=== PATIENT | female | born 1955 | race Hispanic/Latino ===

== ENCOUNTER 2018-05-22 22:32 | Inpatient (IN) | payer MEDICARE, OTHER ==
--- NOTE | 2018-05-22 23:19 | ED PDOC ---
Arrival/HPI - General Chief Complaint: Altered Mental Status Time Seen by Provider: 05/22/18 22:35 Historian: Patient - History of Present Illness Narrative History of Present Illness (Text): 05/22/18 23:16 A 63 year old female, with no significant past medical history, presents to the emergency department brought in by EMS with Altered Mental Status. Patient was a poor historian and was alert & oriented x2. Patient reports having pain in her left toe for the past two days but denies any pain right now and denies any fever, chills, chest pain, shortness of breath, nausea, vomiting, diarrhea, urinary symptoms, back pain, neck pain, headache, dizziness, or any other complaints. PMD: Dr. Bwoen Time/Duration: Prior to Arrival Symptom Course: Unchanged Activities at Onset: Light Context: Home Past Medical History - Provider Review Nursing Documentation Reviewed: Yes - Endocrine/Metabolic Hx Diabetes Mellitus Type 1: Yes - Psychiatric Hx Depression: No Hx Emotional Abuse: No Hx Physical Abuse: No Hx Substance Use: No - Surgical History Other/Comment: neck surgery - Anesthesia Hx Anesthesia: Yes Hx Anesthesia Reactions: No Hx Malignant Hyperthermia: No - Suicidal Assessment Feels Threatened In Home Enviroment: No Family/Social History - Physician Review Nursing Documentation Reviewed: Yes Family/Social History: Unknown Family HX Smoking Status: Never Smoked Hx Alcohol Use: No Hx Substance Use: No Allergies/Home Meds Allergies/Adverse Reactions: Allergies No Known Allergies Allergy (Verified 05/22/18 22:41) Home Medications: Home Meds Medication Instructions Recorded Confirmed ALPRAZolam [Xanax] 1 mg PO BID 05/23/18 05/23/18 GlipiZIDE [Glucotrol] 5 mg PO BID 05/23/18 05/23/18 Lisinopril 05/23/18 Morphine [MS Contin] 60 mg PO QID 05/23/18 05/23/18 Oxycodone HCl [Roxicodone] 30 mg PO QID 05/23/18 05/23/18 Sitagliptin Phos/Metformin HCl 100 mg PO DAILY 05/23/18 05/23/18 [Janumet Xr 100-1,000 mg Tablet] Review of Systems - Physician Review All systems were reviewed & negative as marked: Yes - Review of Systems Constitutional: Normal. absent: Fevers, Night Sweats Eyes: Normal Respiratory: Normal. absent: SOB Cardiovascular: Normal. absent: Chest Pain Gastrointestinal: absent: Diarrhea, Nausea, Vomiting Genitourinary Female: absent: Urine Output Changes Musculoskeletal: absent: Back Pain, Neck Pain Skin: Other (ganggrene on left big toe ). absent: Normal Neurological: absent: Headache, Dizziness Physical Exam Vital Signs Reviewed: Yes Vital Signs Temp Pulse Resp BP Pulse Ox 05/23/18 02:15 105 H 16 133/69 96 05/23/18 01:52 105 H 16 133/69 96 05/22/18 22:58 98 F 113 H 16 137/68 88 L Temperature: Afebrile Blood Pressure: Normal Pulse: Tachycardic Respiratory Rate: Normal Appearance: Positive for: Well-Appearing, Non-Toxic, Comfortable Pain Distress: None Mental Status: No: Alert and Oriented X 3 (Alert and oriented x2) - Systems Exam Head: Present: Atraumatic, Normocephalic Pupils: Present: PERRL Extroacular Muscles: Present: EOMI Conjunctiva: Present: Normal Mouth: Present: Moist Mucous Membranes Neck: Present: Normal Range of Motion Respiratory/Chest: Present: Clear to Auscultation, Good Air Exchange. No: Respiratory Distress, Accessory Muscle Use Cardiovascular: Present: Regular Rate and Rhythm, Normal S1, S2. No: Murmurs Abdomen: No: Tenderness, Distention, Peritoneal Signs Back: Present: Normal Inspection Upper Extremity: Present: Normal Inspection. No: Cyanosis, Edema Lower Extremity: Present: Other (left toe bullae). No: Normal Inspection, Edema Neurological: Present: GCS=15, CN II-XII Intact, Speech Normal Skin: Present: Warm, Dry, Normal Color. No: Rashes Psychiatric: Present: Alert, Normal Insight, Normal Concentration. No: Oriented x 3 (Oriented x2) Medical Decision Making ED Course and Treatment: 05/22/18 23:20 Impression: 63 year old female presenting to the Emergency department brought in by EMS with AMS. r/o tox vs infectious vs metaoblic Plan: -- Head CT w/o contrast -- EKG -- Labs -- Chest X-ray -- Left foot X-Ray -- UA -- Reassess and disposition Prior Visits: Notes and results from previous visits were reviewed. Patient was last seen in the emergency department on Progress Notes: 05/23/18 00:12 Chest XRay reviewed, shows no acute findings. Reviewed by me. Left Foot XRay reviewed, shows no acute findings. Reviewed by me. 05/23/18 00:[address] w/o contrast FINDINGS: Brain: There are areas of diminished density in the white matter bilaterally consistent with chronic small vessel ischemic changes. Goetz-white matter differentiation is intact and unremarkable. No mass lesion. No evidence of intracranial hemorrhage. Ventricles: Unremarkable. No ventriculomegaly. Bones/joints: Unremarkable. No acute fracture. Soft tissues: Unremarkable. Sinuses: Small amount of mucus seen in the dependent portion of the sphenoid sinus. Mastoid air cells: Unremarkable as visualized. No mastoid effusion. IMPRESSION: 1. Chronic ischemic changes bilaterally. 2. Small amount of mucus seen in the dependent portion of the sphenoid sinus. Acute sinusitis can have this imaging finding. Dictator and Authenticated by: Anup Newman MD 05/23/18 00:[address] Turpin who is aware and agrees with Emergency department management plan to admit patient for further observation. 05/23/18 02:02 EKG: Ordered, reviewed, and independently interpreted the EKG. Rate : 102 BPM Rhythm : Sinus Tachycardia Interpretation : No ST-segment elevations or depressions, no T-wave inversions, normal intervals. Comparison : No previous EKG for comparison. Interpreted by me. 05/23/18 19:46 pt reassesed. agrees to admission - Lab Interpretations Lab Results: 05/23/18 00:05 05/23/18 00:05 Lab Results 05/23/18 00:35: Urine Opiates Screen Positive H, Urine Methadone Screen Negative , Ur Barbiturates Screen Positive H, Ur Phencyclidine Scrn Negative, Ur Amphetamines Screen Negative, U Benzodiazepines Scrn Positive H, U Oth Cocaine Metabols Negative, U Cannabinoids Screen Negative 05/23/18 00:35: Urine Color Yellow, Urine Appearance Clear, Urine pH 7.5, Ur Specific [place] 1.020, Urine Protein 30 H, Urine Glucose (UA) Negative, Urine Ketones 40 H, Urine Blood Negative, Urine Nitrate Negative, Urine Bilirubin Negative, Urine Urobilinogen 1.0 H, Ur Leukocyte Esterase Negative, Urine RBC 0 - 2, Urine WBC 0 - 2, Ur Epithelial Cells 1 - 3, Urine Bacteria Few 05/23/18 00:05: pO2 200 H, VBG pH 7.24 L, VBG pCO2 55.0, VBG HCO3 23.6, VBG Total CO2 25.3, VBG O2 Sat (Calc) 99.5 H, VBG Base Excess -4.5 L, VBG Potassium > 20.0 H*, Sodium 132.0, Chloride 103.0, Glucose 176 H, Lactate 1.5, FiO2 21.0, Venous Blood Potassium > 20.0 H* 05/23/18 00:05: Alcohol, Quantitative < 10 05/23/18 00:05: Salicylates < 1 L, Acetaminophen < 10.0 L 05/23/18 00:05: Sodium 142, Chloride 104, Potassium 3.6, Carbon Dioxide 26, Anion Gap 17, BUN 15, Creatinine 1.0, Est GFR ( Amer) > 60, Est GFR (Non- Af Amer) 56, Random Glucose 166 H, Calcium 9.3, Magnesium 2.1, Total Bilirubin 0.5, AST 14, ALT 17, Alkaline Phosphatase 98, Lactate Dehydrogenase 398, Total Creatine Kinase 55, Troponin I < 0.01 D, Total Protein 7.7, Albumin 3.9, Globulin 3.8, Albumin/Globulin Ratio 1.0 L 05/23/18 00:05: PT 12.3, INR 1.08, APTT 42.3 H 05/23/18 00:05: WBC 16.5 H, RBC 3.83, Hgb 11.3 L, Hct 34.1 L, MCV 89.0, MCH 29.5 , MCHC 33.1, RDW 14.4, Plt Count 267, MPV 9.1, Gran % 87.7 H, Lymph % (Auto) 7.5 L, Andrew % (Auto) 4.7, Eos % (Auto) 0.0 L, Baso % (Auto) 0.1, Gran # 14.47 H , Lymph # (Auto) 1.2, Andrew # (Auto) 0.8 H, Eos # (Auto) 0.0, Baso # (Auto) 0.02 05/22/18 23:02: POC Glucose (mg/dL) 147 H - RAD Interpretation Radiology Orders: 05/22/18 23:16 CHEST PORTABLE [RAD] Stat 05/22/18 23:17 HEAD W/O CONTRAST [CT] Stat FOOT LEFT 3 VIEWS ROUTINE [RAD] Stat - Medication Orders Current Medication Orders: Alprazolam (Xanax) 0.5 mg PO BID PRN; Protocol PRN Reason: Anxiety Enoxaparin Sodium (Lovenox) 70 mg SC Q12H TOMMIE PRN Reason: Protocol Last Admin: 05/23/18 18:09 Dose: 70 mg Subcutaneous Administrations Document 05/23/18 18:09 CD (Rec: 05/23/18 18:09 CD [id number]) Injection Site MAR Injection Site Right Arm Charges for Administration # of Subcutaneous Administrations 1 Glipizide (Glucotrol) 5 mg PO 0700,1700 [facility] Last Admin: 05/23/18 17:27 Dose: Not Given Non-Admin Reason: Nausea Ceftriaxone Sodium (Rocephin 1 Gram Ivpb) 1 gm in 100 mls @ 100 mls/hr IVPB DAILY TOMMIE PRN Reason: Protocol Stop: 06/01/18 10:01 Last Admin: 05/23/18 10:12 Dose: 100 mls/hr eMAR Start Stop Document 05/23/18 10:12 CD (Rec: 05/23/18 10:12 CD [id number]) Intravenous Solution Start Date 05/23/18 Start Time 10:12 Vancomycin HCl (Vancomycin 1gm) 1 gm in 250 mls @ 167 mls/hr IVPB Q12 TOMMIE PRN Reason: Protocol Stop: 06/01/18 10:01 Last Admin: 05/23/18 09:11 Dose: 167 mls/hr eMAR Start Stop Document 05/23/18 09:11 CD (Rec: 05/23/18 09:11 CD [id number]) Intravenous Solution Start Date 05/23/18 Start Time 09:11 Acyclovir 500 mg/ Sodium (Chloride) 100 mls @ 100 mls/hr IV Q8 TOMMIE PRN Reason: Protocol Stop: 06/01/18 14:01 Last Admin: 05/23/18 15:38 Dose: 100 mls/hr eMAR Start Stop Document 05/23/18 15:38 CD (Rec: 05/23/18 15:38 CD [id number]) Intravenous Solution Start Date 05/23/18 Start Time 15:38 Insulin Human Regular (Humulin R Med) 0 units SC ACHS TOMMIE PRN Reason: Protocol Last Admin: 05/23/18 17:27 Dose: Not Given Non-Admin Reason: Blood Sugar Parameter Lisinopril (Zestril) 10 mg PO DAILY [facility] Last Admin: 05/23/18 10:12 Dose: 10 mg [facility] Pulse and Blood Pressure Document 05/23/18 10:12 CD (Rec: 05/23/18 10:12 CD [id number]) Pulse Pulse Rate (60-90) 70 Blood Pressure Blood Pressure (100/60-150/90) 176/87 Metformin HCl (Glucophage) 500 mg PO BID [facility] Last Admin: 05/23/18 18:09 Dose: Not Given Non-Admin Reason: Nausea Morphine Sulfate (Morphine Extended Release Tab) 30 mg PO Q12 [facility] Last Admin: 05/23/18 12:32 Dose: 30 mg [facility] Pain Assessment Document 05/23/18 12:32 CD (Rec: 05/23/18 12:32 CD [id number]) Pain Reassessment Is this a pain reassessment? No Presence of Pain Presence of Pain Yes Pain Scale Used Pain Scale Used Numeric Location Pain Location Body Site Neck Back Description Description Chronic Intensity of Pain at present 8 Re-Assess: [facility] Pain Assessment Document 05/23/18 13:32 CD (Rec: 05/23/18 14:02 CD [id number]) Pain Reassessment Is this a pain reassessment? Yes Sleep Is patient sleeping during reassessment? Yes Mupirocin (Bactroban Ointment) 0 gm TOP BID [facility] Last Admin: 05/23/18 18:08 Dose: 1 applic Ondansetron HCl (Zofran Inj) 4 mg IVP Q6H PRN PRN Reason: Nausea/Vomiting Last Admin: 05/23/18 18:08 Dose: 4 mg IVP Administration Document 05/23/18 18:08 CD (Rec: 05/23/18 18:08 CD [id number]) Charges for Administration # of IVP Administrations 1 Oxycodone HCl (Oxycodone Immediate Release Tab) 15 mg PO Q6H PRN PRN Reason: Pain, severe (8-10) Sitagliptin Phosphate (Januvia) 100 mg PO DAILY [facility] Last Admin: 05/23/18 11:12 Dose: Not Given Non-Admin Reason: Nausea Zolpidem Tartrate (Ambien) 5 mg PO HS PRN; Protocol PRN Reason: Insomnia Discontinued Medications Sodium Chloride (Sodium Chloride 0.9%) 500 mls @ 999 mls/hr IV .Q31M STA Stop: 05/23/18 00:32 Last Admin: 05/23/18 00:48 Dose: 999 mls/hr eMAR Start Stop Document 05/23/18 00:48 MS (Rec: 05/23/18 00:[address] [id number]) Intravenous Solution Start Date 05/23/18 Start Time 00:49 End Date 05/23/18 End time 01:19 Total Infusion Time 30 Vancomycin HCl (Vancomycin 1gm) 1 gm in 250 mls @ 167 mls/hr IVPB STAT STA PRN Reason: Protocol Stop: 05/23/18 01:58 Last Admin: 05/23/18 01:45 Dose: 167 mls/hr eMAR Start Stop Document 05/23/18 01:45 MS (Rec: 05/23/18 01:[address] [id number]) Intravenous Solution Start Date 05/23/18 Start Time 01:30 End Date 05/23/18 End time 03:00 Total Infusion Time 90 Piperacillin Sod/Tazobactam Sod (Zosyn 3.375 In Ns 100ml) 100 mls @ 200 mls/hr IVPB STAT STA PRN Reason: Protocol Stop: 05/23/18 00:58 Last Admin: 05/23/18 00:47 Dose: 200 mls/hr eMAR Start Stop Document 05/23/18 00:47 MS (Rec: 05/23/18 00:[address] [id number]) Intravenous Solution Start Date 05/23/18 Start Time 00:47 End Date 05/23/18 End time 01:17 Total Infusion Time 30 Lisinopril (Zestril) 10 mg PO STAT STA Stop: 05/23/18 05:58 Last Admin: 05/23/18 06:21 Dose: 10 mg MAR Pulse and Blood Pressure Document 05/23/18 06:21 MS (Rec: 05/23/18 06:22 MS [id number]) Pulse Pulse Rate (60-90) 91 Blood Pressure Blood Pressure (100/60-150/90) 176/87 Ondansetron HCl (Zofran Inj) 4 mg IVP ONCE ONE Stop: 05/23/18 05:24 Last Admin: 05/23/18 05:33 Dose: 4 mg IVP Administration Document 05/23/18 05:33 MS (Rec: 05/23/18 05:33 MS [id number]) Charges for Administration # of IVP Administrations 1 - Scribe Statement The provider has reviewed the documentation as recorded by the Gueroibmary Mercado All medical record entries made by the Gueroibmary were at my direction and personally dictated by me. I have reviewed the chart and agree that the record accurately reflects my personal performance of the history, physical exam, medical decision making, and the department course for this patient. I have also personally directed, reviewed, and agree with the discharge instructions and disposition. Disposition/Present on Arrival - Present on Arrival Any Indicators Present on Arrival: No History of DVT/PE: No History of Uncontrolled Diabetes: No Urinary Catheter: No History of Decub. Ulcer: No History Surgical Site Infection Following: None - Disposition Have Diagnosis and Disposition been Completed?: Yes Diagnosis: Altered mental status, Leukocytosis Disposition: HOSPITALIZED Disposition Time: 06:00 Condition: STABLE
[2018-05-23] MEDS ORDERED: Sodium Chloride 0.9% 500 ML IV STA (00:02)
[2018-05-23 00:26] LABS: BASO # 0.02 K/mm3 (0.0-2.0); BASO % 0.1 % (0.0-3.0); GRAN # 14.47 (1.4-6.5); GRAN % 87.7 % (50.0-68.0); HEMOGLOBIN 11.3 g/dL (12.0-16.0); LYMPH # 1.2 (1.2-3.4); LYMPH % 7.5 % (22.0-35.0); MEAN CORPUSCULAR HEMOGLOBIN 29.5 pg (25.0-35.0); MEAN CORPUSCULAR HGB CONC 33.1 g/dl (31.0-37.0); MEAN PLATELET VOLUME 9.1 fl (7.0-11.0); MONO # 0.8 (0.1-0.6); MONO % 4.7 % (1.0-6.0); RBC 3.83 10^6/uL (3.5-6.1); RED CELL DISTRIBUTION WIDTH 14.4 % (11.5-14.5); WHITE BLOOD COUNT 16.5 10^3/ul (4.5-11.0)
[2018-05-23 00:29] LABS: VENOUS BLOOD GAS BASE EXCESS -4.5 mmol/L (0.0-2.0); VENOUS BLOOD GAS PO2 200 mm/Hg (30-55); VENOUS BLOOD PH 7.24 (7.32-7.43)
[2018-05-23] MEDS ORDERED: Vancomycin 1gm in NS 250ml 1 GM/250 ML BAG IVPB STA (00:29)
[2018-05-23] MEDS ORDERED: Piperacillin/Tazobact 3.375 gm 100 ML IVPB STA (00:29)
[2018-05-23 00:32] LABS: INR 1.08; PROTHROMBIN TIME 12.3 SECONDS (9.4-12.5)
[2018-05-23 00:35] LABS: ACETAMINOPHEN < 10.0 ug/ml (10.0-20.0); PARTIAL THROMBOPLASTIN TIME 42.3 Seconds (25.1-36.5); SALICYLATE < 1 mg/dL (2.0-20.0)
[2018-05-23 00:37] LABS: ALBUMIN 3.9 g/dL (3.0-4.8); ALT/SGPT 17 U/L (7-56); AST/SGOT 14 U/L (14-36); BLOOD UREA NITROGEN 15 mg/dL (7-21); CALCIUM 9.3 mg/dL (8.4-10.5); GFR AFRICAN-AMERICAN > 60; GFR NON-AFRICAN AMERICAN 56
[2018-05-23 00:47] LABS: TROPONIN I < 0.01 ng/mL
[2018-05-23 01:03] LABS: PH,URINE 7.5 (4.7-8.0); URINE BILIRUBIN NEGATIVE (NEGATIVE); URINE BLOOD NEGATIVE (NEGATIVE); URINE GLUCOSE (UA) NEGATIVE (NEGATIVE); URINE LEUKOCYTE ESTERASE NEGATIVE Leu/uL (NEGATIVE); URINE PROTEIN 30 mg/dL (<30 mg/dL)
[2018-05-23 01:14] LABS: URINE APPEARANCE CLEAR (CLEAR); URINE COLOR YELLOW (YELLOW)
[2018-05-23 01:23] LABS: URINE BACTERIA FEW (NEG); URINE RBC 0 - 2 /hpf (0-2); URINE WBC 0 - 2 /hpf (0-6)
[2018-05-23 01:29] LABS: BARBITURATES, UR POSITIVE (NEGATIVE); BENZODIAZEPINES, UR POSITIVE (NEGATIVE); OPIATES, UR POSITIVE (NEGATIVE); PHENCYCLIDINE, UR NEGATIVE (NEGATIVE)
[2018-05-23 02:59] VITALS: BMI 28.1
[2018-05-23] MEDS: Insulin Reg-MEDIUM-Coverage SC SCH ×4 (08:01→22:45)
--- NOTE | 2018-05-23 08:06 | RAD ---
Date of service: 05/22/2018 HISTORY: ams COMPARISON: 11/01/2013 FINDINGS: LUNGS: No active pulmonary disease. PLEURA: No significant pleural effusion identified, no pneumothorax apparent. CARDIOVASCULAR: Normal. OSSEOUS STRUCTURES: No significant abnormalities. VISUALIZED UPPER ABDOMEN: Normal. OTHER FINDINGS: None. IMPRESSION: No active disease.
--- NOTE | 2018-05-23 08:24 | RAD ---
Date of service: 05/22/2018 PROCEDURE: Left Foot Radiographs. HISTORY: pain COMPARISON: None. FINDINGS: BONES: Normal. No fracture. JOINTS: Degenerative changes are seen in the midfoot with joint space narrowing. SOFT TISSUES: Normal. OTHER FINDINGS: None. IMPRESSION: Degenerative changes in the midfoot. No evidence of fracture
--- NOTE | 2018-05-23 08:46 | CT ---
Date of service: 05/22/2018 PROCEDURE: CT HEAD WITHOUT CONTRAST. HISTORY: ams COMPARISON: None available. TECHNIQUE: Axial computed tomography images were obtained through the head/brain without intravenous contrast. Radiation dose: Total exam DLP = 946 mGy-cm. This CT exam was performed using one or more of the following dose reduction techniques: Automated exposure control, adjustment of the mA and/or kV according to patient size, and/or use of iterative reconstruction technique. FINDINGS: HEMORRHAGE: No intracranial hemorrhage. BRAIN: No mass effect or edema. No atrophy or chronic microvascular ischemic changes. VENTRICLES: Unremarkable. No hydrocephalus. CALVARIUM: Unremarkable. PARANASAL SINUSES: Mucosal thickening in the posterior aspect of the sphenoid sinus MASTOID AIR CELLS: Unremarkable as visualized. No inflammatory changes. OTHER FINDINGS: The report concurs with the preliminary [facility] report IMPRESSION: No acute intracranial findings
--- NOTE | 2018-05-23 09:06 | CARD ---
APPROVED REPORT Date of service: 05/23/2018 EKG Measurement Heart [id number] <Conclusion> Sinus tachycardia Otherwise normal ECG
[2018-05-23 09:09] LABS: HEMOGLOBIN 10.6 g/dL (12.0-16.0); MEAN CELL VOLUME 88.4 fl (80.0-105.0); MEAN CORPUSCULAR HEMOGLOBIN 29.4 pg (25.0-35.0); MEAN CORPUSCULAR HGB CONC 33.2 g/dl (31.0-37.0); MEAN PLATELET VOLUME 8.8 fl (7.0-11.0); RBC 3.61 10^6/uL (3.5-6.1); RED CELL DISTRIBUTION WIDTH 14.3 % (11.5-14.5); WHITE BLOOD COUNT 14.7 10^3/ul (4.5-11.0)
[2018-05-23] MEDS: Vancomycin 1gm in NS 250ml 1 GM/250 ML BAG IVPB SCH ×2 (09:11→22:18)
[2018-05-23 09:20] LABS: ALBUMIN 3.7 g/dL (3.0-4.8); ALT/SGPT 11 U/L (7-56); AST/SGOT 17 U/L (14-36); BLOOD UREA NITROGEN 14 mg/dL (7-21); CALCIUM 9.3 mg/dL (8.4-10.5); GFR AFRICAN-AMERICAN > 60; GFR NON-AFRICAN AMERICAN 56; HDL CHOLESTEROL 27 mg/dL (29-60)
[2018-05-23 09:28] LABS: LDL CHOLESTEROL 69 mg/dL (0-129)
[2018-05-23 09:29] LABS: TROPONIN I < 0.01 ng/mL
[2018-05-23 09:34] LABS: FREE T4 0.96 ng/dL (0.78-2.19)
[2018-05-23] MEDS: cefTRIAXone 1 gm 1 GM/100 ML BAG IVPB SCH (10:12)
[2018-05-23] MEDS: Mupirocin 2% Ointment 15 GM TUBE TOP SCH ×2 (10:26→18:08)
[2018-05-23] MEDS: Morphine 30 mg SR Tab PO SCH ×2 (12:32→22:16)
--- NOTE | 2018-05-23 13:06 | HP ---
Copied To: Teri Le MD Attending MD: Teri Le MD HISTORY OF PRESENT ILLNESS: The patient is a 63-year-old white female who was found to have altered mental status at home. The patient has no recall about it. She states I have no idea, my called ambulance and I was brought to emergency room according to ER documentation. She was acting confused and saying so, that is why ambulance was called and she was brought to ER. The patient is not a very good historian; however, she is awake and alert, offers no complaint. No history of nausea or vomiting. No diarrhea. No fever. No chills. No cough, congestion. No hemoptysis. No hematemesis. PAST MEDICAL HISTORY: Significant for, 1. Chronic back pain for that she is on heavy dose narcotics. 2. History of gastritis. 3. Bbi-szbldbk-uoztsfzhd diabetes. ALLERGIES: SHE IS NOT ALLERGIC TO ANY MEDICATION. MEDICATIONS AT HOME: She is on metformin 100/1000, oxycodone 30 mg four times a day, Ms Contin 60 mg four times a day, lisinopril, glipizide and Xanax. REVIEW OF SYSTEMS: Significant for right big toe blister and swelling and redness. SOCIAL HISTORY: She is . Lives with the , heavy smoker and uses prescription narcotics. PHYSICAL EXAMINATION: GENERAL: She seems to be awake and alert, answers appropriately. VITAL SIGNS: She is afebrile, pulse 91, respirations 19, blood pressure 176/87. LUNGS: Bilateral fair airflow. No rhonchi or crackle. HEART: S1 and S2 audible. ABDOMEN: Soft, obese, nontender. No rebound. No guarding. NEUROLOGICAL: She is awake, alert, oriented. Answers appropriately for now. EXTREMITIES: Bilateral leg, no edema. Right big toe ulcer is in the dressing done by healthcare customer service. LABORATORY EXAM: WBC on admission was 16.5, followup is 14.7; hemoglobin 10.6; hematocrit 31.9; platelet 264. Chemistry: Sodium 145, potassium 3.6, chloride 107, CO2 of 24, BUN 17, creatinine 1, blood sugar 159. LFTs are within normal limits. TSH is 0.12. CT scan of the head and brain is unremarkable. X-ray of right foot shows degenerative changes in the midfoot. No evidence of fracture. ASSESSMENT: 1. Altered mental status, probably secondary to heavy-dose narcotics. 2. Chronic back pain. 3. Igo-jsxqrjn-nopwuzkbq diabetes. 4. Hypertension. 5. Hyperlipidemia. PLAN: We will start the patient on metformin, monitor her blood sugar. Continue her on glipizide. Currently, she is on Rocephin. We will continue that. She is on vancomycin. She is on lisinopril. Has been started on acyclovir. MRI and echo have been ordered and ordered for carotid Doppler. I was notified this morning the patient had episode of bradycardia and become symptomatic and feel nauseous. So plan is we will continue on above-mentioned antibiotic, analgesic as needed. Right foot ulcer is being cared by Podiatry team. We will follow up the patient on . Teri Le MD
--- NOTE | 2018-05-23 15:00 | CON ---
Copied To: Tanner Nagy MD Attending MD: Tanner Nagy MD DATE: 05/23/2018 CARDIOLOGY CONSULT REASON FOR CONSULTATION: Slow atrial fibrillation in the rate of 40. HISTORY OF PRESENT ILLNESS: The patient is a 63-year-old female, who was admitted because of altered mental status. The patient herself does not recall anything except that the told her she has to go to the hospital. The patient denies any known prior cardiac history and does not recall having any coronary intervention in the past. At this time, the patient denies any chest pain or dizziness. Initially, the patient was in sinus rhythm and the EKG on admission revealed sinus tachycardia at a rate of 102; however, overnight monitor revealed runs of slow atrial fibrillation at a rate of 40. SOCIAL HISTORY: The patient is a smoker. She is a nondrinker. MEDICATIONS: Home medications are metformin, glipizide, Xanax and MS Contin. Current hospital medications are acyclovir 500 mg every 8 hours, Ambien 5 mg at bedtime, Glucophage 500 mg twice a day, glipizide 5 mg twice a day, Januvia 100 mg daily, morphine sulfate 3 mg p.o. every 12 hours, Rocephin 1 g intravenously daily, vancomycin 1 g intravenously every 12 hours, Zestril 10 mg once a day, Zofran 4 mg intravenously every 6 hours p.r.n. REVIEW OF SYSTEMS: The patient denies any recent fever and did not have any documented fever in the hospital. She denies retrosternal chest pain, dizziness or palpitation. I was informed by the nurse that the patient had incision and drainage for the left big toe, although there is no report on the [employer] database of that. PHYSICAL EXAMINATION: GENERAL: The patient is a middle-aged female, who does not appear to be in any acute distress. VITAL SIGNS: Blood pressure 159/87, heart rate 80, temperature 98.6. HEENT: Pale conjunctivae. CHEST: Clear. HEART: S1 and S2 regular. ABDOMEN: Soft. EXTREMITIES: 1+ left foot edema and dressings applied to the left foot and the left big toe. EKG reveals sinus tachycardia at a rate of 102. LABORATORY DATA: Hemoglobin and hematocrit 10.6 and 31.9, white count 14.7, platelet count 264,000. Admitting white count was 16.5. SMA-7: Sodium 145, potassium 3.6, chloride 107, CO2 of 24, glucose 159, BUN 14, creatinine 1. Two sets of troponins are negative. PTT 42.3, INR was 1.08. Drug screen is positive for opiates, barbiturates and benzodiazepines, which is likely to her home medications except for the barbiturates. Head CT scan without contrast: No acute intracranial finding. Left foot x-ray: Degenerative changes in the midfoot. No evidence of fracture. TSH 0.12, which is below normal. Free T4 is within normal limit. ASSESSMENT: 1. Paroxysmal atrial fibrillation with slow heart rate. 2. Altered mental status. 3. Consider left big toe infection, status post incision and drainage. Rule out underlying sepsis. 4. Hypertension and diabetes mellitus. RECOMMENDATIONS: Continue current morphine sulfate. Continue IV Rocephin and IV vancomycin. Continue Zestril 10 mg once a day. Start subcutaneous Lovenox therapy for paroxysmal atrial fibrillation. Repeat 12-lead EKG and I will review the echocardiography study performed today. Tanner Nagy MD
[2018-05-23] MEDS: Acyclovir 500 MG in Sodium Chloride 0.9% 100 ML IV SCH ×2 (15:38→22:16)
--- NOTE | 2018-05-23 17:53 | CON ---
Copied To: Kevin Cooper DPM Attending MD: Kevin Cooper DPM DATE: 05/23/2018 HISTORY OF PRESENT ILLNESS: A 63-year-old diabetic female, seen at bedside for consultation, evaluation and management of a recent blister formation on her left great toe. The patient does not know how long the blister has been there and does not know the etiology and does not know how it got there. She was brought into the emergency room yesterday as her noticed she was experiencing altered mental status. She is a long-term diabetic and her blood sugar was 176 mg/dL when she was brought in. PAST MEDICAL HISTORY: The patient's medical history is significant for type 1 diabetes with diabetic neuropathy, obesity, hypertension, dyslipidemia. SOCIAL HISTORY: The patient is . No history of tobacco usage. No alcohol use. No substance abuse. FAMILY HISTORY: Unremarkable. ALLERGIES: THE PATIENT HAS NO KNOWN DRUG ALLERGIES. HOME MEDICATIONS: Reviewed in the MAR. PHYSICAL EXAMINATION: VITAL SIGNS: Reveal temperature of 98.6, pulse rate of 91, blood pressure of 176/87, respiratory rate of 19. There is no microbiology report noted. X-rays taken of the left foot reveal degenerative changes in the midfoot, but there is no evidence of fracture, tumor or cortical destruction to suggest osteomyelitis. I examined the x-ray myself. It was noted to be no cortical erosion at the distal aspect of the left hallux underlying the blister formation. OBJECTIVE: Bounding palpable pedal pulses bilaterally. Absent pedal hair growth noted bilaterally. Temperature gradient is increased bilaterally. The patient is unable to detect 5.07 g monofilament wire testing bilaterally. Lower extremity skin presents thin, shining discolored. There is no edema bilaterally. There are no interdigital macerations noted bilaterally. Left great toe presents with a blister formation at the distal aspect of the digit. There is noted to be serosanguineous fluid within the blister. Once the blister was the deroofed, there was an underlying superficial wound that does not probe to tendon or bone. The base of the wound is primarily granular healthy tissue. There is no purulence. It does not probe to tendon or bone. The area is void of any erythema and edema to suggest localized cellulitis. ASSESSMENT: Insulin-dependent diabetic with peripheral neuropathy, presents with blister formation on the distal aspect of the left hallux with no acute bacterial infection noted. PLAN: The patient was examined. Labs were reviewed. Her white count is 16.5 yesterday, down to 14.7. However, the etiology of her white blood cell count is not emanating from her blister formation on the left great toe, which is void of any clinical signs of infection. The wound was cultured and the cultures were sent for sensitivities. The wound was cleansed with normal sterile saline. We will apply a small amount of Bactroban, Xeroform and a dry sterile dressing. We will order surgical shoes to prevent any friction. The patient was educated on the fact that I believe that her wound was caused by friction from shoe gear, which is the most probable cause of blister formation at the distal aspect of the great toe. The patient is neuropathic and does not realize when shoes are tight. The patient will be seen and followed daily. Recommend Infectious Disease consult to evaluate culture and sensitivity results. We will continue empirically with the vancomycin and ceftriaxone. The patient will be seen and followed daily. Kevin Cooper DPM
[2018-05-23] MEDS: Enoxaparin 80 mg Syringe SC SCH (18:09)
--- NOTE | 2018-05-23 19:46 | CON ---
Copied To: Doug Pollard MD Attending MD: Doug Pollard MD DATE: 05/23/2018 LOCATION: The patient is seen in room 267, bed 2. CHIEF COMPLAINT: Weakness times several days. 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 The patient was alert and oriented. She denies any headaches. No fevers. No nausea. No chest pain. No abdominal pain, diarrhea or constipation. No urinary symptoms. PAST MEDICAL HISTORY: Significant for diabetes mellitus. REVIEW OF SYSTEMS: Twelve-point review of systems is noted and reviewed. She denies any rash or joint pain. No headaches, blurred vision. No chest pain, shortness of breath or cough. No abdominal pain, diarrhea or constipation. No dysuria or frequency. No bright red blood per rectum. No melena. No hematuria. No cough. No hemoptysis. PAST MEDICAL HISTORY: Significant for diabetes mellitus, hypertension, cataract, anxiety, and chronic pain syndrome. PAST SURGICAL HISTORY: Significant for tonsillectomy, , back surgery, neck surgery, cataract surgery. ALLERGIES: THE PATIENT HAS NO KNOWN ALLERGIES. MEDICATIONS AT HOME: Include MS Contin, Xanax, metformin, oxycodone, Glucotrol, and lisinopril. PHYSICAL EXAMINATION: GENERAL: She is in bed, in no acute distress. She knows who she is. She recognizes me from previous years of working here. She knows her name. She knows where she is; however, she is unable to identify the year. VITAL SIGNS: On exam, temperature is 98; blood pressure is 159/87; respiratory rate of 18; heart rate of 82, it was up to 113. She is saturating at 97%, although it was down to 88% on admission. BMI is 28. HEENT: Examination of HEENT is unremarkable. NECK: Supple. LUNGS: Clear. HEART: Normal S1 and S2. ABDOMEN: Soft and nontender. EXTREMITIES: On her big toe, she has approximately a nickel-sized bullous lesion that appears to be filled with blood, which is on the left toe. No erythema. LABORATORY DATA: The patient's laboratory examination reveals a white count of 16,500, hemoglobin of 11, platelets of 267, 87% granulocytosis. Coagulation is noted. Blood gases are noted. Chemistries reveal a BUN of 15 and creatinine of 1. Troponin is less than 0.01. LDH is normal. Urinalysis is unremarkable. The chest x-ray report is not available. The EKG report is not available. CAT scan of the head is not available. It has been reported by the nurse that the chest x-ray is negative and the CAT scan of the head is negative as per the emergency room chart. Chronic ischemic changes bilaterally. Small amount of mucus in the position of sphenoid sinus, acute sinusitis. EKG is interpreted, no changes, non-ST elevation. Left foot x-ray is reported by the Emergency Room as negative. Chest x-ray is reported by the emergency room as negative. 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 Although she is alert and oriented x2, she is having periods of confusion and admitted with a change of mental status. She does have white count of 16,000 not enough of infection or evident to explain the white count of 16,000 and hypoxia. The #1 is systemic inflammatory response syndrome. Must rule out primary central nervous system event. I doubt herpes encephalitis. I doubt meningitis. We will start empirically on vancomycin, Rocephin, acyclovir. Pending blood cultures and urine cultures. We will order an MRI of the head. Awaiting for official readings of the imaging, panculture, procalcitonin and a repeat white count. We will follow closely with you. Must also rule out aspiration pneumonia. Doug Polalrd MD
[2018-05-24] MEDS: Enoxaparin 80 mg Syringe SC SCH ×2 (01:52→14:36)
--- NOTE | 2018-05-24 05:32 | CARD ---
APPROVED REPORT Date of service: 05/23/2018 EXAM: Two-dimensional and M-mode echocardiogram with Doppler and color Doppler. INDICATION 2D DIMENSIONS IVSd0.9 (0.7-1.1cm)LVDd5.0 (3.9-5.9cm) PWd0.9 (0.7-1.1cm)LVDs3.3 (2.5-4.0cm) FS (%) 34.3 %LVEF (%)63.2 (>50%) M-Mode DIMENSIONS Left Atrium (MM)3.60 (2.5-4.0cm)Aortic Root3.20 (2.2-3.7cm) Aortic Cusp Exc.1.70 (1.5-2.0cm) Aortic Valve AoV Peak Nieqbeyo198.0cm/Janet Peak GR.7mmHg Mitral Valve MV E Hsxjxkgo63.8cm/sMV A Uodaxtlr56.3cm/sE/A ratio1.0 TDI Lateral E' Peak V10.40cm/sMedial E' Peak V7.51cm/sE/Lateral E'8.7 E/Medial E'12.1 Tricuspid Valve TR Peak Jkdcaogb782zn/sRAP [id number] Peak Gr.26mmHg [id number] LEFT VENTRICLE The left ventricle is normal size. There is normal left ventricular wall thickness. The left ventricular function is normal. The left ventricular ejection fraction is within the normal range. RIGHT VENTRICLE The right ventricle is normal size. The right ventricular systolic function is normal. ATRIA The left atrium size is normal. The right atrium size is normal. AORTIC VALVE The aortic valve is not well visualized. There is no aortic valvular stenosis. MITRAL VALVE The mitral valve is not well visualized. There is no mitral valve regurgitation noted. TRICUSPID VALVE The tricuspid valve is normal in structure. There is no tricuspid valve regurgitation noted. GREAT VESSELS The aortic root is normal in size. The IVC is normal in size and collapses >50% with inspiration. PERICARDIAL EFFUSION There is no pleural effusion. There is no pericardial effusion. <Conclusion> Technically limited stiudy. Chamber sizes appear within normal limits. Normal LV systolic function. No gross valvular abnormalities noted.
[2018-05-24] MEDS: Acyclovir 500 MG in Sodium Chloride 0.9% 100 ML IV SCH ×3 (05:50→21:43)
[2018-05-24] MEDS: Insulin Reg-MEDIUM-Coverage SC SCH ×4 (07:47→22:36)
[2018-05-24] MEDS: Mupirocin 2% Ointment 15 GM TUBE TOP SCH ×2 (09:30→17:54)
[2018-05-24] MEDS: Morphine 30 mg SR Tab PO SCH ×2 (09:30→21:42)
[2018-05-24] MEDS: Vancomycin 1gm in NS 250ml 1 GM/250 ML BAG IVPB SCH ×2 (09:34→22:16)
[2018-05-24] MEDS: cefTRIAXone 1 gm 1 GM/100 ML BAG IVPB SCH (09:34)
[2018-05-24] MEDS: Metoprolol Succinate 25 mg XL Tab PO SCH ×2 (11:03→17:54)
--- NOTE | 2018-05-24 12:18 | PN ---
Copied To: Doug Pollard MD Attending MD: Doug Pollard MD DATE: 05/24/2018 SUBJECTIVE: The patient is seen earlier today in room 267, bed 2. She is awake and alert. She knows what year it is, she knows what day it is and she knows where she is, who she is although nurses state that she has periods where she is not appropriately responding. PHYSICAL EXAMINATION: VITAL SIGNS: Temperature is 97, blood pressure is 120/70, respiratory rate of 21, heart rate of 87. HEENT: Examination is unremarkable. NECK: Supple. LUNGS: Have decreased breath sounds. HEART: Normal S1, S2. ABDOMEN: Soft. DATA: Laboratory examination reveals a white count of 14,700, hemoglobin of 10, platelets of 264. Chemistries reveal a BUN of 14, creatinine of 1 and procalcitonin 0.34.. The urinalysis is noted and toxicology is reviewed. Microbiology reveals the blood cultures are negative and the throat culture is pending. Review of orders reveal the patient to be on ceftriaxone, vancomycin and acyclovir. ASSESSMENT AND PLAN: This is a 63-year-old female who is admitted with change of mental status, past medical history significant for diabetes mellitus and chronic pain syndrome, chronic back pain, history of hyperthyroidism, Graves' disease, hypertension, anxiety, cataract and diabetes mellitus. 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 SIRS, systemic inflammatory response syndrome with questionable change in mental status, acute mental status change, although at this time she appears to be back to baseline, I doubt herpes encephalitis. Awaiting for MRI of the head; on vancomycin, Rocephin and acyclovir and workup in progress. The patient did have leukocytosis, which is somewhat improved down to 14,000. We will check on today's white count. The patient also with a big toe bullous lesion, enough to explain the change in mental status and/or white count. We will follow with you. Doug Pollard MD
--- NOTE | 2018-05-24 12:56 | CP.PCM.PN ---
<Rodney Branch - Last Filed: 05/24/18 12:53> Subjective - Date & Time of Evaluation Date of Evaluation: 05/24/18 Time of Evaluation: 11:00 - Subjective Subjective: Podiatry Progress Note- Dr. Dang 63F seen and evaluated at bedside concerning left hallux superficial ulceration secondary to deroofed blister likely from pressure. Patient is seen resting comfortably in bed, in NAD. Patient reports she slept okay. Denies of acute overnight events. Denies nausea, fever, shortness of breath, chest pains or chills. Reports that she doesn't have pain to the left foot. No other pedal complaints at this time. Objective - Vital Signs/Intake and Output Vital Signs (last 24 hours): Temp Pulse Resp BP Pulse Ox 97.8 F 79 21 145/75 97 05/24/18 06:00 05/24/18 11:03 05/24/18 06:00 05/24/18 11:03 05/24/18 06:00 Intake and Output: 05/24/18 05/24/18 06:59 18:59 Intake Total 2009 Output Total 2 Balance 2007 - Medications Medications: Current Medications Alprazolam (Xanax) 0.5 mg PO BID PRN; Protocol PRN Reason: Anxiety Enoxaparin Sodium (Lovenox) 70 mg SC Q12H TOMMIE PRN Reason: Protocol Last Admin: 05/24/18 01:52 Dose: 70 mg Glipizide (Glucotrol) 5 mg PO 0700,1700 [facility] Last Admin: 05/24/18 07:45 Dose: Not Given Ceftriaxone Sodium (Rocephin 1 Gram Ivpb) 1 gm in 100 mls @ 100 mls/hr IVPB DAILY TOMMIE PRN Reason: Protocol Stop: 06/01/18 10:01 Last Admin: 05/24/18 09:34 Dose: 100 mls/hr Vancomycin HCl (Vancomycin 1gm) 1 gm in 250 mls @ 167 mls/hr IVPB Q12 TOMMIE PRN Reason: Protocol Stop: 06/01/18 10:01 Last Admin: 05/24/18 09:34 Dose: 167 mls/hr Acyclovir 500 mg/ Sodium (Chloride) 100 mls @ 100 mls/hr IV Q8 TOMMIE PRN Reason: Protocol Stop: 06/01/18 14:01 Last Admin: 05/24/18 05:50 Dose: 100 mls/hr Insulin Human Regular (Humulin R Med) 0 units SC ACHS [facility] PRN Reason: Protocol Last Admin: 05/24/18 07:47 Dose: Not Given Lisinopril (Zestril) 10 mg PO DAILY [facility] Last Admin: 05/24/18 09:31 Dose: 10 mg Metformin HCl (Glucophage) 500 mg PO BID [facility] Last Admin: 05/24/18 09:44 Dose: Not Given Metoprolol Succinate (Toprol Xl) 12.5 mg PO BID [facility] Last Admin: 05/24/18 11:03 Dose: 12.5 mg Morphine Sulfate (Morphine Extended Release Tab) 30 mg PO Q12 [facility] Last Admin: 05/24/18 09:30 Dose: 30 mg Mupirocin (Bactroban Ointment) 0 gm TOP BID [facility] Last Admin: 05/24/18 09:30 Dose: 1 applic Ondansetron HCl (Zofran Inj) 4 mg IVP Q6H PRN PRN Reason: Nausea/Vomiting Last Admin: 05/23/18 18:08 Dose: 4 mg Oxycodone HCl (Oxycodone Immediate Release Tab) 15 mg PO Q6H PRN PRN Reason: Pain, severe (8-10) Sitagliptin Phosphate (Januvia) 100 mg PO DAILY [facility] Last Admin: 05/24/18 09:34 Dose: 100 mg Zolpidem Tartrate (Ambien) 5 mg PO HS PRN; Protocol PRN Reason: Insomnia - Labs Labs: 05/23/18 08:50 05/23/18 08:50 PT 12.3 SECONDS (9.4-12.5) 05/23/18 00:05 INR 1.08 05/23/18 00:05 APTT 42.3 Seconds (25.1-36.5) H 05/23/18 00:05 - Constitutional Appears: Well, Non-toxic, No Acute Distress - Extremities Exam Extremities Exam: absent: Calf Tenderness Additional comments: Left lower extremity focused examination: VASC: DP and PT palpable, CFT < 3 seconds x10 digits, temperature from warm to cool from proximal to distal toes, mild edema noted to the left forefoot ORTHO: no pain with palpation to the hallux, MM is 4/5 in all four compartments dorsiflexion, plantarflexion, inversion and eversion NEURO: gross sensation intact, protective sensation diminished DERM: ulceration measuring approximately 1 cm x 1cm x .1 cm at the distal hallux with wound base 100% granular, minimal serous sangious drainage, no streaking, no erythema, no odor, no purulence, no abscess, no gangrenous changes noted, no probe to bone, no probe to tendon - Neurological Exam Neurological Exam: Alert, Awake - Psychiatric Exam Psychiatric exam: Normal Affect, Normal Mood Assessment and Plan - Assessment and Plan (Free Text) Assessment: 63F with left hallux superficial ulceration secondary to blister likely from pressure. Plan: Patient seen and examined Discussed plan with Dr. Dang Afebrile, WBC =14.7 05/23/18 Ulceration cleansed with saline, dressed with xeroform, dsd, kerlix, and tape X-ray (-) OM Wound culture left hallux- pending Continue abx per ID Dispense surgical shoe To be worn at all times while ambulating Will continue to follow while in house <Ashley Dang - Last Filed: 05/27/18 12:32> Objective - Vital Signs/Intake and Output Vital Signs (last 24 hours): Temp Pulse Resp BP Pulse Ox 98.2 F 72 20 169/94 H 95 05/25/18 12:00 05/25/18 14:00 05/25/18 12:00 05/25/18 12:00 05/25/18 06:00 - Labs Labs: 05/25/18 06:45 05/25/18 09:00 PT 12.3 SECONDS (9.4-12.5) 05/23/18 00:05 INR 1.08 05/23/18 00:05 APTT 42.3 Seconds (25.1-36.5) H 05/23/18 00:05 Attending/Attestation - Attestation I have personally seen and examined this patient.: Yes I have fully participated in the care of the patient.: Yes I have reviewed all pertinent clinical information, including history, physical exam and plan: Yes
[2018-05-24] MEDS: oxyCODONE 15 mg Immediate Release Tab PO PRN (17:57)
--- NOTE | 2018-05-24 18:59 | PN ---
Copied To: Tanner Nagy MD Attending MD: Tanner Nagy MD DATE: 05/24/2018 SUBJECTIVE: No reported significant bradycardia. The patient is oriented to place. She denies any chest pain or dizziness. PHYSICAL EXAMINATION VITAL SIGNS: Blood pressure 145/75, heart rate 79, temperature 97.8, and respirations 21. HEENT: Normocephalic. CHEST: Clear. HEART: S1 and S2, regular. EXTREMITIES: No edema. LABORATORY DATA: Echocardiographic study was significantly limited study. Chamber size within normal limit with normal left ventricular systolic function. TSH level is 0.12 which is below normal. ASSESSMENT: 1. Paroxysmal atrial fibrillation. 2. Altered mental status. 3. Hypertension, diabetes mellitus. 4. Rule out hyperthyroidism. RECOMMENDATIONS: Continue Januvia 100 mg once a day, Lovenox at 70 mg subcutaneously twice a day, IV Rocephin at 1 g daily, Toprol-XL 12.5 mg twice a day, vancomycin 1 g intravenously every 12 hours, Zestril 10 mg once a day. Obtain total T4 level. Tanner Nagy MD
[2018-05-25] MEDS: oxyCODONE 15 mg Immediate Release Tab PO PRN ×3 (00:34→12:14)
[2018-05-25] MEDS: Enoxaparin 80 mg Syringe SC SCH ×2 (03:00→13:00)
[2018-05-25] MEDS: Acyclovir 500 MG in Sodium Chloride 0.9% 100 ML IV SCH ×2 (05:51→14:00)
[2018-05-25 06:21] VITALS: RESP 20; O2SAT 95
[2018-05-25] MEDS: Insulin Reg-MEDIUM-Coverage SC SCH ×2 (07:30→12:14)
[2018-05-25 07:33] LABS: HEMOGLOBIN 10.1 g/dL (12.0-16.0); MEAN CELL VOLUME 87.5 fl (80.0-105.0); MEAN CORPUSCULAR HEMOGLOBIN 28.8 pg (25.0-35.0); MEAN CORPUSCULAR HGB CONC 32.9 g/dl (31.0-37.0); MEAN PLATELET VOLUME 8.9 fl (7.0-11.0); RBC 3.51 10^6/uL (3.5-6.1); RED CELL DISTRIBUTION WIDTH 14.4 % (11.5-14.5); WHITE BLOOD COUNT 10.5 10^3/ul (4.5-11.0)
[2018-05-25 07:59] LABS: ALBUMIN 3.3 g/dL (3.0-4.8); ALT/SGPT 24 U/L (7-56); AST/SGOT 16 U/L (14-36); BLOOD UREA NITROGEN 13 mg/dL (7-21); CALCIUM 8.7 mg/dL (8.4-10.5); GFR AFRICAN-AMERICAN > 60; GFR NON-AFRICAN AMERICAN 56
--- NOTE | 2018-05-25 09:09 | PN ---
Copied To: Jose Luis Underwood MD Attending MD: Jose Luis Underwood MD DATE: 05/24/2018 SUBJECTIVE: The patient has no complaints of any headaches or dizziness. She has no nausea. PHYSICAL EXAMINATION VITAL SIGNS: Temperature is 97.8, pulse of 77, blood pressure is 127/78, respirations 21, O2 saturation 97%. GENERAL: The patient is lying in bed, flat, comfortable. HEENT: No oral lesion. Anicteric sclerae. Moist mucosa. NECK: No JVD, adenopathy, or thyromegaly. CARDIOVASCULAR: S1 and S2, regular. No murmurs, rubs, or gallops. LUNGS: Clear to auscultation bilaterally. No wheeze, rales, or rhonchi. ABDOMEN: Bowel sounds are positive, soft, nontender and nondistended. EXTREMITIES: No cyanosis, clubbing or edema. LABORATORY DATA: White count of 14.7, hemoglobin 10.6. Toxicology shows opiates are positive, barbiturates are positive, benzodiazepines are positive. Urine shows blood is negative, nitrites are negative. Chemistry shows creatinine of 1. LDL is 69. ASSESSMENT: 1. Delirium, improved. 2. Chronic back pain. 3. Diabetes type 2. 4. Hypertension. 5. Dyslipidemia. PLAN: The patient is improving on her mental status. She is on metformin for diabetes. She is on Glucotrol for her diabetes as well as Januvia. She is on Lovenox for DVT prophylaxis. She is on morphine for her pain, it is extended release. She did not get extended release yesterday and she said that she has been having pain. The patient has blood cultures that have been negative. She is currently on Rocephin for antibiotics and being followed by Infectious Disease. The patient is also on acyclovir for possible herpes encephalitis. The patient is on Zofran as needed. She has a carotid artery ultrasound that has been done, the results are pending. We will repeat her blood work for tomorrow. Jose Luis Underwood MD
--- NOTE | 2018-05-25 10:07 | US ---
PROCEDURE: Bilateral carotid artery duplex ultrasound HISTORY: Carotid stenosis PHYSICIAN(S): Sergio Jacobo MD. TECHNIQUE: Duplex sonography and color-flow Doppler were used to evaluate the carotid bifurcations and limited segments of the vertebral arteries bilaterally. FINDINGS: There is mild smooth heterogeneous echogenic plaque noted at the carotid bifurcations bilaterally. The peak systolic velocity in the proximal right internal carotid artery is 63 cm/sec. This corresponds to a 20 to 39% proximal right ICA stenosis. Mildly elevated systolic velocities are noted in the proximal right external carotid artery. There is antegrade flow in the right vertebral artery. The peak systolic velocity in the proximal left internal carotid artery is 59 cm/sec. This corresponds to a 20 to 39% proximal left ICA stenosis. Normal systolic velocities are noted in the proximal left external carotid artery. There is antegrade flow in the left vertebral artery. IMPRESSION: 1. Bilateral 20-39% proximal ICA stenoses. 2. Antegrade flow in both vertebral arteries.
[2018-05-25] MEDS: Morphine 30 mg SR Tab PO SCH (10:22)
[2018-05-25] MEDS: Vancomycin 1gm in NS 250ml 1 GM/250 ML BAG IVPB SCH (10:26)
[2018-05-25] MEDS: cefTRIAXone 1 gm 1 GM/100 ML BAG IVPB SCH (10:26)
[2018-05-25] MEDS: Metoprolol Succinate 25 mg XL Tab PO SCH (10:27)
[2018-05-25] MEDS: Mupirocin 2% Ointment 15 GM TUBE TOP SCH (10:30)
[2018-05-25 12:13] VITALS: BP 169/94; TEMP 98.2
--- NOTE | 2018-05-25 14:00 | CP.PCM.PN ---
Subjective - Date & Time of Evaluation Date of Evaluation: 05/25/18 Time of Evaluation: 13:57 - Subjective Subjective: Podiatry Progress Note for Dr. Dang 63F seen at bedside for left hallux ulceration. Patient is AAO x 3 and NAD, resting comfortably in bed. Denies any acute overnight events. States that she has no pain in her left hallux but does describe a throbbing sensation in her toe. She denies any further pedal complaints at this time. Denies any recent N/V /F/C/CP/SOB/D/posterior calf pain when squeezed Objective - Vital Signs/Intake and Output Vital Signs (last 24 hours): Temp Pulse Resp BP Pulse Ox 98.2 F 64 20 169/94 H 95 05/25/18 12:00 05/25/18 12:00 05/25/18 12:00 05/25/18 12:00 05/25/18 06:00 Intake and Output: 05/25/18 05/25/18 06:59 18:59 Intake Total 800 Output Total 0 Balance 800 - Medications Medications: Current Medications Alprazolam (Xanax) 0.5 mg PO BID PRN; Protocol PRN Reason: Anxiety Last Admin: 05/24/18 21:42 Dose: 0.5 mg Enoxaparin Sodium (Lovenox) 70 mg SC Q12H [facility]OMMIE PRN Reason: Protocol Last Admin: 05/25/18 03:00 Dose: 70 mg Glipizide (Glucotrol) 5 mg PO 0700,1700 [facility] Last Admin: 05/25/18 08:11 Dose: Not Given Ceftriaxone Sodium (Rocephin 1 Gram Ivpb) 1 gm in 100 mls @ 100 mls/hr IVPB DAILY [facility]OMMIE PRN Reason: Protocol Stop: 06/01/18 10:01 Last Admin: 05/25/18 10:26 Dose: 100 mls/hr Vancomycin HCl (Vancomycin 1gm) 1 gm in 250 mls @ 167 mls/hr IVPB Q12 [facility]OM[facility] PRN Reason: Protocol Stop: 06/01/18 10:01 Last Admin: 05/25/18 10:26 Dose: 167 mls/hr Acyclovir 500 mg/ Sodium (Chloride) 100 mls @ 100 mls/hr IV Q8 [facility] PRN Reason: Protocol Stop: 06/01/18 14:01 Last Admin: 05/25/18 05:51 Dose: 100 mls/hr Insulin Human Regular (Humulin R Med) 0 units SC ACHS [facility] PRN Reason: Protocol Last Admin: 05/25/18 12:14 Dose: 3 unit Lisinopril (Zestril) 10 mg PO DAILY [facility] Last Admin: 05/25/18 10:25 Dose: 10 mg Metformin HCl (Glucophage) 500 mg PO BID [facility] Last Admin: 05/25/18 10:25 Dose: 500 mg Metoprolol Succinate (Toprol Xl) 12.5 mg PO BID [facility] Last Admin: 05/25/18 10:27 Dose: 12.5 mg Morphine Sulfate (Morphine Extended Release Tab) 30 mg PO Q12 [facility] Last Admin: 05/25/18 10:22 Dose: 30 mg Mupirocin (Bactroban Ointment) 0 gm TOP BID [facility] Last Admin: 05/25/18 10:30 Dose: Not Given Ondansetron HCl (Zofran Inj) 4 mg IVP Q6H PRN PRN Reason: Nausea/Vomiting Last Admin: 05/25/18 08:18 Dose: 4 mg Oxycodone HCl (Oxycodone Immediate Release Tab) 15 mg PO Q6H PRN PRN Reason: Pain, severe (8-10) Last Admin: 05/25/18 12:14 Dose: 15 mg Potassium Chloride (K-Dur 20 Meq Er Tab) 20 meq PO BRK [facility] Sitagliptin Phosphate (Januvia) 100 mg PO DAILY [facility] Last Admin: 05/25/18 10:25 Dose: 100 mg Zolpidem Tartrate (Ambien) 5 mg PO HS PRN; Protocol PRN Reason: Insomnia - Labs Labs: 05/25/18 06:45 05/25/18 09:00 PT 12.3 SECONDS (9.4-12.5) 05/23/18 00:05 INR 1.08 05/23/18 00:05 APTT 42.3 Seconds (25.1-36.5) H 05/23/18 00:05 - Constitutional Appears: Well, Non-toxic, No Acute Distress - Extremities Exam Additional comments: Left lower extremity focused examination: VASC: DP and PT palpable, CFT < 3 seconds x10 digits, temperature from warm to cool from proximal to distal toes, no edema noted to left foot ORTHO: no pain with palpation to the hallux, MM is 4/5 in all four compartments dorsiflexion, plantarflexion, inversion and eversion NEURO: gross sensation intact, protective sensation diminished DERM: ulceration measuring approximately 1 cm x 1cm x .1 cm at the distal hallux with wound base 100% granular, no drainage noted, no streaking, minimal erythema, no odor, no purulence, no abscess, no gangrenous changes noted, no probe to bone, no probe to tendon - Neurological Exam Neurological Exam: Alert, Awake, Oriented x3 - Psychiatric Exam Psychiatric exam: Normal Affect, Normal Mood Assessment and Plan - Assessment and Plan (Free Text) Assessment: 63F with left hallux superficial ulceration secondary to blister Plan: Patient seen and evaluated with attending Dr. Dang Afebrile, absent leukocytosis Wound cx toe preliminary: No growth Continue abx per ID Foot Xray: Degenerative changes in the midfoot, no evidence of fracture MRI left foot ordered to r/o OM; f/u Wound dressed with bactroban, DSD No plan for surgical intervention at this time Patient may weight bear as tolerated in surgical shoe Podiatry will continue to follow while patient in house
--- NOTE | 2018-05-25 14:04 | CP.PCM.PN ---
Subjective - Date & Time of Evaluation Date of Evaluation: 05/25/18 Time of Evaluation: 10:20 - Subjective Subjective: Patient's headache has significantly improved, is awake and alert and oriented, no fevers, no nausea or vomiting, no diarrhea. Objective - Vital Signs/Intake and Output Vital Signs (last 24 hours): Temp Pulse Resp BP Pulse Ox 98.2 F 64 20 169/94 H 95 05/25/18 12:00 05/25/18 12:00 05/25/18 12:00 05/25/18 12:00 05/25/18 06:00 Intake and Output: 05/25/18 05/25/18 06:59 18:59 Intake Total 800 Output Total 0 Balance 800 - Medications Medications: Current Medications Alprazolam (Xanax) 0.5 mg PO BID PRN; Protocol PRN Reason: Anxiety Last Admin: 05/24/18 21:42 Dose: 0.5 mg Enoxaparin Sodium (Lovenox) 70 mg SC Q12H [facility] PRN Reason: Protocol Last Admin: 05/25/18 03:00 Dose: 70 mg Glipizide (Glucotrol) 5 mg PO 0700,1700 [facility] Last Admin: 05/25/18 08:11 Dose: Not Given Ceftriaxone Sodium (Rocephin 1 Gram Ivpb) 1 gm in 100 mls @ 100 mls/hr IVPB DAILY [facility] PRN Reason: Protocol Stop: 06/01/18 10:01 Last Admin: 05/25/18 10:26 Dose: 100 mls/hr Vancomycin HCl (Vancomycin 1gm) 1 gm in 250 mls @ 167 mls/hr IVPB Q12 [facility] PRN Reason: Protocol Stop: 06/01/18 10:01 Last Admin: 05/25/18 10:26 Dose: 167 mls/hr Acyclovir 500 mg/ Sodium (Chloride) 100 mls @ 100 mls/hr IV Q8 [facility] PRN Reason: Protocol Stop: 06/01/18 14:01 Last Admin: 05/25/18 05:51 Dose: 100 mls/hr Insulin Human Regular (Humulin R Med) 0 units SC ACHS [facility] PRN Reason: Protocol Last Admin: 05/25/18 12:14 Dose: 3 unit Lisinopril (Zestril) 10 mg PO DAILY [facility] Last Admin: 05/25/18 10:25 Dose: 10 mg Metformin HCl (Glucophage) 500 mg PO BID [facility] Last Admin: 05/25/18 10:25 Dose: 500 mg Metoprolol Succinate (Toprol Xl) 12.5 mg PO BID [facility] Last Admin: 05/25/18 10:27 Dose: 12.5 mg Morphine Sulfate (Morphine Extended Release Tab) 30 mg PO Q12 [facility] Last Admin: 05/25/18 10:22 Dose: 30 mg Mupirocin (Bactroban Ointment) 0 gm TOP BID [facility] Last Admin: 05/25/18 10:30 Dose: Not Given Ondansetron HCl (Zofran Inj) 4 mg IVP Q6H PRN PRN Reason: Nausea/Vomiting Last Admin: 05/25/18 08:18 Dose: 4 mg Oxycodone HCl (Oxycodone Immediate Release Tab) 15 mg PO Q6H PRN PRN Reason: Pain, severe (8-10) Last Admin: 05/25/18 12:14 Dose: 15 mg Potassium Chloride (K-Dur 20 Meq Er Tab) 20 meq PO BRK [facility] Sitagliptin Phosphate (Januvia) 100 mg PO DAILY [facility] Last Admin: 05/25/18 10:25 Dose: 100 mg Zolpidem Tartrate (Ambien) 5 mg PO HS PRN; Protocol PRN Reason: Insomnia - Labs Labs: 05/25/18 06:45 05/25/18 09:00 PT 12.3 SECONDS (9.4-12.5) 05/23/18 00:05 INR 1.08 05/23/18 00:05 APTT 42.3 Seconds (25.1-36.5) H 05/23/18 00:05 - Constitutional Appears: Non-toxic, Chronically Ill - Head Exam Head Exam: NORMAL INSPECTION - Neck Exam Neck Exam: absent: Meningismus - Respiratory Exam Respiratory Exam: Decreased Breath Sounds - Cardiovascular Exam Cardiovascular Exam: +S1, +S2 - GI/Abdominal Exam GI & Abdominal Exam: Soft. absent: Tenderness - Extremities Exam Additional comments: left hallux with dressings in place Assessment and Plan - Assessment and Plan (Free Text) Plan: Assessment S/P systemic inflammatory response syndrome with resolved leukocytosis with no evidence of sepsis, unlikely meningoencephalitis since there has been no fever, mental status rapidly improved and leukocytosis rapidly improved shallow ulceration of left hallux without evidence of active infection DM HTN chronic CHF CAD S/P PCI CVA S/P cholecystectomy GERD obesity with BMI 37 Plan has been on Acyclovir, Vancomycin and Rocephin - blood cx are negative x 2 days , mental status is back to baseline (awake, alert, oriented) - patient refusing MRI brain - february d/c antibiotics and observe continue local wound care for the left hallux ulcer should follow up with PMD as an outpatient
[2018-05-25 14:41] VITALS: PULSE 72
--- NOTE | 2018-05-25 19:04 | PN ---
Copied To: Natalie Tran MD Attending MD: Natalie Tran MD DATE: 05/25/2018 LOCATION: The patient in room 267, bed 2. REASON FOR CONSULTATION: Short run of atrial fibrillation, altered mental status, hypertension, and diabetes. SUBJECTIVE: The patient denies any chest pain, shortness of breath, or palpitations. The patient was seen by Dr. Nagy over the weekend, who was covering us. The patient is conscious, alert, moving in all extremities, answering all questions. PHYSICAL EXAMINATION: VITAL SIGNS: Blood pressure 148/83, respirations 20, pulse 117, temperature 98.2. HEENT: Head is normocephalic. Eyes, pupils normal. Conjunctivae slight pale. NECK: JVP is low. Carotid equal. THORAX: AP diameter is normal. LUNGS: Clear. CARDIOVASCULAR: S1 and S2. ABDOMEN: Soft. No tenderness. No organomegaly. Bowel sounds normal. EXTREMITIES: No clubbing. No cyanosis. LABORATORY DATA: WBC 10.5, hemoglobin 10.1, hematocrit 30.7, and platelets 305. Potassium today is 3.1, sodium 142. BUN 13, creatinine 1. Random sugar 126, 213. Magnesium 1.9. Thyroxine level normal at 8.3. TSH was 0.12 which was low. Echo was done on 05/23/2018, showed technical limited study. Chamber sizes within normal limits, normal LV systolic function. No gross valvular abnormality noted. Echo was done on , showed technically limited study. Chamber size within normal limits. Normal LV systolic function. No gross valvular abnormality noted. RSVP 36 mmHg, ejection fraction 63%. DIAGNOSES: Short run of atrial fibrillation, hypokalemia, altered mental status, hypertension, diabetes mellitus, anemia, and hypokalemia. PLAN: The patient is already getting IV potassium therapy. The patient on metoprolol succinate 12.5 mg p.o. b.i.d., lisinopril 10 daily, acyclovir 500 mg IV every 8 hours, Rocephin 1 g IV daily, Lovenox 70 every 12 hours, potassium chloride 20 mEq p.o. daily, Januvia 100 mg daily, glipizide 5 mg b.i.d., metformin 500 mg b.i.d., 20 mEq of IV potassium bolus also ordered. We will repeat SMA-7, magnesium, and phosphorous in the morning. We will follow. Natalie Tran MD
--- NOTE | 2018-05-26 07:46 | DS ---
Copied To: Teri Le MD Attending MD: Teri Le MD HISTORY OF PRESENT ILLNESS: Patient is 63 years old, seen and examined. Much more awake, alert, oriented, communicative, not in any distress. Eating and tolerating. Complaining of back pain, but better. PHYSICAL EXAMINATION: VITAL SIGNS: She is afebrile, pulse 64, respirations 20, blood pressure . LUNGS: Bilateral fair airflow. No rhonchi or crackle. HEART: S1 and S2 audible. ABDOMEN: Soft, nontender. No rebound. No guarding. NEUROLOGIC: Patient is awake, alert, oriented, communicative. Moves all extremities. The right big toe is in the dressing. LABORATORY DATA: WBC 10.5, hemoglobin 10, hematocrit 30.7, platelets 305. Chemistry: Sodium 142, potassium 3.1, chloride 107, CO2 26, BUN 13, creatinine 1, blood sugar 213. Her blood cultures and urine cultures are negative. Carotid ultrasound is negative. ASSESSMENT AND PLAN: 1. Status post altered mental status, probably secondary to narcotics. 2. Chronic back pain syndrome. 3. Hypertension. 4. Kri-nbfuybq-wtedehlsn diabetes. PLAN: Patient seems to be clinically stable. Discontinue her Telemetry. We will reach out to ID. If we can switch to p.o. antibiotic, patient can be discharged and she can [facility]. Teri Le MD
[2018-05-26] MEDS ORDERED: Potassium Chloride 20 mEq ER Tab PO SCH (08:00)
--- NOTE | 2018-05-26 18:08 | DS ---
Copied To: Teri Le MD Attending MD: Teri Le MD HISTORY OF PRESENT ILLNESS: Patient is a 63-year-old who came in with altered mental status. Patient cannot recall what happened. She does take hefty dose of narcotics. She states probably she was in deep steep, stumbled and was found to be confused. called ambulance and was brought to ER. Her workup including CT scan of the head is negative. Carotid Doppler is unremarkable. Patient has been watched and is doing well and anxious to go home. PHYSICAL EXAMINATION: VITAL SIGNS: She is afebrile, pulse 64, respirations 20, blood pressure 148/83. LUNGS: Bilateral fair airflow. No rhonchi or crackle. HEART: S1 and S2 audible. ABDOMEN: Soft and nontender. No rebound. No guarding. NEUROLOGIC: She is awake, alert, oriented, communicative. LABORATORY EXAM: WBC 10.5, hemoglobin 10, hematocrit 30.7, platelets 305. Chemistry: Sodium 142, potassium 2.8, chloride 107, CO2 28, BUN 13, creatinine 1, blood sugar of 213. Urine tox positive for opiates, barbiturates and benzodiazepines. HIV test is negative. ASSESSMENT AND PLAN: 1. Status post altered mental status, probably secondary to narcotics. 2. Chronic intractable back pain, on heavy dose narcotics, under the care of Pain Management. 3. Hypokalemia, potassium has been supplemented. 4. Coronary artery disease, status post angioplasty. 5. Gastritis. 6. Gxx-cmxrwbe-shwfzrwtd diabetes. PLAN: Patient is clinically stable. Anxious to go home. No fever. She is back to her baseline. Workup is negative. So, she is being discharged. Patient also was found to have right big toe ulcer, cleared by Podiatry. They will follow up in the office for her wound care. Patient is being discharged home. There is no need for antibiotics and she will follow up with Dr. Dang . Teri Le MD
== END 2018-05-25 17:13 | disposition home or self-care (01) | DRG 948 ==
LOC: ED 22:32 → ERH 05-23 00:55 → 2RNO 05-23 02:22
PROVIDERS: ADMIT Internal Medicine; ATTEND Internal Medicine
DX: R41.82 Altered mental status, unspecified (principal); R65.10 Systemic inflammatory response syndrome (SIRS) of non-infectious origin without acute organ dysfunction; T40.605A Adverse effect of unspecified narcotics, initial encounter; M54.9 Dorsalgia, unspecified; E87.6 Hypokalemia; G89.4 Chronic pain syndrome; I25.10 Atherosclerotic heart disease of native coronary artery without angina pectoris; Z98.61 Coronary angioplasty status; K29.70 Gastritis, unspecified, without bleeding; D64.9 Anemia, unspecified; E05.00 Thyrotoxicosis with diffuse goiter without thyrotoxic crisis or storm; E78.5 Hyperlipidemia, unspecified; E10.42 Type 1 diabetes mellitus with diabetic polyneuropathy; E10.621 Type 1 diabetes mellitus with foot ulcer; E10.36 Type 1 diabetes mellitus with diabetic cataract; E66.9 Obesity, unspecified; F17.200 Nicotine dependence, unspecified, uncomplicated; F41.9 Anxiety disorder, unspecified; I11.0 Hypertensive heart disease with heart failure; I48.0 Paroxysmal atrial fibrillation; I50.9 Heart failure, unspecified; Z86.73 Personal history of transient ischemic attack (TIA), and cerebral infarction without residual deficits; K21.9 Gastro-esophageal reflux disease without esophagitis; L97.529 Non-pressure chronic ulcer of other part of left foot with unspecified severity; R09.02 Hypoxemia; Z68.37 Body mass index [BMI] 37.0-37.9, adult; Z90.49 Acquired absence of other specified parts of digestive tract

== ENCOUNTER 2018-07-26 10:39 | Inpatient (IN) | payer MEDICARE, OTHER ==
[2018-07-26 11:00] VITALS: BMI 29.2
--- NOTE | 2018-07-26 11:13 | ED PDOC ---
Arrival/HPI - General Chief Complaint: Weakness/Neurological Deficit Time Seen by Provider: 07/26/18 11:09 Historian: EMS EM Caveat: Other (Drowsy) - History of Present Illness Narrative History of Present Illness (Text): 07/26/18 11:10 A 63 year old female with an unknown past medical history, is brought into the emergency department via EMS for shortness of breath. The patient is drowsy in the emergency department and not speaking. HPI/ ROS limited due to patient's drowsiness. Symptom Onset: Gradual Symptom Course: Unchanged Activities at Onset: Rest, Light Context: Home Past Medical History - Provider Review Nursing Documentation Reviewed: Yes - Cardiac Hx Cardiac Disorders: Yes Hx Hypertension: Yes - Pulmonary Hx Respiratory Disorders: No - Neurological Hx Neurological Disorder: No - HEENT Hx HEENT Disorder: Yes Hx Cataracts: Yes (with surgery) - Renal Hx Renal Disorder: No - Endocrine/Metabolic Hx Diabetes Mellitus Type 1: Yes - Hematological/Oncological Hx Blood Disorders: No - Integumentary Hx Dermatological Disorder: Yes (L great toe bullae) - Musculoskeletal/Rheumatological Hx Arthritis: Yes - Gastrointestinal Hx Gastrointestinal Disorders: No - Genitourinary/Gynecological Hx Genitourinary Disorders: No - Psychiatric Hx Depression: No Hx Emotional Abuse: No Hx Physical Abuse: No Hx Substance Use: No - Surgical History Other/Comment: neck surgery - Anesthesia Hx Anesthesia: Yes Hx Anesthesia Reactions: No Hx Malignant Hyperthermia: No - Suicidal Assessment Feels Threatened In Home Enviroment: No Family/Social History - Physician Review Nursing Documentation Reviewed: Yes Family/Social History: No Known Family HX Smoking Status: Never Smoked Hx Alcohol Use: No Hx Substance Use: No Allergies/Home Meds Allergies/Adverse Reactions: Allergies No Known Allergies Allergy (Verified 05/22/18 22:41) Home Medications: Home Meds Medication Instructions Recorded Confirmed ALPRAZolam [Xanax] 1 mg PO BID 05/23/18 07/26/18 Morphine [MS Contin] 60 mg PO QID 05/23/18 07/26/18 Oxycodone HCl [Roxicodone] 30 mg PO QID 05/23/18 07/26/18 RX: GlipiZIDE [Glucotrol] 5 mg PO BID 05/23/18 07/26/18 Sitagliptin Phos/Metformin HCl 100 mg PO DAILY 05/23/18 07/26/18 [Janumet Xr 100-1,000 mg Tablet] Review of Systems - Physician Review All systems were reviewed & negative as marked: Yes - Review of Systems Systems not reviewed;Unavailable: Other (Drowsiness) Respiratory: SOB Physical Exam - Physical Exam Narrative Physical Exam (Text): 07/26/18 11:12 Gen: VS reviewed, well developed, well nourished, non-toxic, mild distress. Drowsy, arousable to voice. ENT: Normal pharynx. Eye: EOMI, PERRL. Neck: No JVD, supple, no adenopathy. CV: Regular rate, regular rhythm, no rubs, no murmur, no gallops, S1, S2, pulses equal and strong. Pulm: No distress, clear to auscultation, no wheeze, no rhonchi, breath sounds equal, no rales. Abd: Soft, nontender, no guarding, no rebound, no rigidity, normal bowel sounds. Ext: No edema. Skin: Good color, no rash, no cyanosis. Psych: Limited secondary to drowsiness. Neuro: Limited secondary to drowsiness. Vital Signs Reviewed: Yes Vital Signs Temp Pulse Resp BP Pulse Ox 07/26/18 11:00 98.9 F 112 H 14 109/58 L 91 L Temperature: Afebrile Blood Pressure: Hypotensive Pulse: Tachycardic Respiratory Rate: Normal Appearance: Positive for: Well-Appearing, Non-Toxic, Comfortable Pain Distress: None Mental Status: Positive for: Alert and Oriented X 3 Medical Decision Making ED Course and Treatment: 07/26/18 11:13 Impression: A 63 year old female presents to the emergency department with a complaint of shortness of breath. Plan: -- EKG -- Chest X-Ray -- Labs -- Reassess and disposition Prior Visits: Notes and results from previous visits were reviewed. Progress Notes: 07/26/18 13:19 Patient vomited after dose of narcan. patient still drowsy despite multiple doses of narcan. CT head indicated but for airway protection patient was intubated. 07/26/18 14:00 ET tube was difficult to advance with the 7-0 tube. It was removed under RSI and replaced with 8-0 successfully without complication. 07/26/18 14:47 case discussed with oxana new, covering for dr. thorne. admit accepted. ad [facility] under service of dr. thorne. patient to be admitted for acute confusion, suspected drug overdose. 07/26/18 15:12 case discussed with degree clerk, will see pt in consult for icu admission 07/26/18 17:34 patient was seen for excessive drowsiness, marginal response to narcan, suspected polydrug overdose, known recent social stressor dealing with of son as reported by the . Patient was intubated for airway protection/control, especially in light of vomiting. Patient admitted to the ICU. - RAD Interpretation Narrative RAD Interpretations (Text): 07/26/18 16:10 Accession No. : [id number] Patient Name / ID : FUNMILAYO AYALA / [id number] Exam Date : 07/26/2018 15:28:57 ( Approved ) Study Comment : Sex / Age : F / 63Y Creator : Edin Goddard MD Dictator : Edin Goddard MD Driller'S Offsider : Government Minister : Edin Goddard MD Approver2 : Report Date : 07/26/2018 15:39:31 My Comment : Date of service: 07/26/2018 PROCEDURE: CT HEAD WITHOUT CONTRAST. HISTORY: altered mentation COMPARISON: None available. TECHNIQUE: Axial computed tomography images were obtained through the head/brain without intravenous contrast. Radiation dose: Total exam DLP = 1031 mGy-cm. This CT exam was performed using one or more of the following dose reduction techniques: Automated exposure control, adjustment of the mA and/or kV according to patient size, and/or use of iterative reconstruction technique. FINDINGS: HEMORRHAGE: No intracranial hemorrhage. BRAIN: No mass effect or edema. No atrophy or chronic microvascular ischemic changes. VENTRICLES: Unremarkable. No hydrocephalus. CALVARIUM: Unremarkable. PARANASAL SINUSES: Unremarkable as visualized. No significant inflammatory changes. MASTOID AIR CELLS: Unremarkable as visualized. No inflammatory changes. OTHER FINDINGS: None IMPRESSION: No acute intracranial findings Cricket Coach: Radiologist - EKG Interpretation EKG Interpretation (Text): 07/26/18 12:11 1057: sinus tachycardia at 115 bpm, irbbb, no ectopy Interpreted by ED Physician: Yes Procedures - Intubation Time of Intubation: 13:21 Intubation Method: orotracheal Tube Size (cm): 7.0 Medications: Succinylcholine (and etomidate) Breath Sounds after Intubation: equal Intubation Complications: O2 saturation decreased (and patient was immediately BMV back to 99% easily) Post Intubation Xray: Yes - Scribe Statement The provider has reviewed the documentation as recorded by the Gueroibmary Sauceda Provider Scribe Attestation: All medical record entries made by the Scribe were at my direction and personally dictated by me. I have reviewed the chart and agree that the record accurately reflects my personal performance of the history, physical exam, medical decision making, and the department course for this patient. I have also personally directed, reviewed, and agree with the discharge instructions and disposition Disposition/Present on Arrival - Present on Arrival Any Indicators Present on Arrival: No History of DVT/PE: No History of Uncontrolled Diabetes: No Urinary Catheter: No History of Decub. Ulcer: No History Surgical Site Infection Following: None - Disposition Have Diagnosis and Disposition been Completed?: Yes Diagnosis: Drug overdose Disposition: HOSPITALIZED Disposition Time: 14:48 Patient Plan: Admission Patient Problems: Current Active Problems Problem Status Onset Drug overdose Acute Condition: GUARDED
[2018-07-26] MEDS ORDERED: Naloxone HCl 2mg/2ml syr IVP STA (11:14)
[2018-07-26] MEDS ORDERED: Sodium Chloride 0.9% 1,000 ML IV STA (11:15)
[2018-07-26] MEDS ORDERED: Naloxone 0.4 mg/ml Inj (Adult) ONE (11:24)
[2018-07-26 12:05] LABS: BASO % 0.2 % (0.0-3.0); EOS % 0.2 % (1.5-5.0); GRAN # 11.04 (1.4-6.5); GRAN % 87.5 % (50.0-68.0); HEMOGLOBIN 11.2 g/dL (12.0-16.0); LYMPH % 7.9 % (22.0-35.0); MEAN CELL VOLUME 95.9 fl (80.0-105.0); MEAN CORPUSCULAR HEMOGLOBIN 28.9 pg (25.0-35.0); MEAN CORPUSCULAR HGB CONC 30.1 g/dl (31.0-37.0); MONO # 0.5 (0.1-0.6); MONO % 4.2 % (1.0-6.0); RBC 3.88 10^6/uL (3.5-6.1); RED CELL DISTRIBUTION WIDTH 15.1 % (11.5-14.5); WHITE BLOOD COUNT 12.6 10^3/ul (4.5-11.0)
[2018-07-26 12:06] LABS: BASO # 0.03 K/mm3 (0.0-2.0)
[2018-07-26 12:16] LABS: ALBUMIN 3.6 g/dL (3.0-4.8); CALCIUM 8.4 mg/dL (8.4-10.5)
[2018-07-26 12:29] LABS: BARBITURATES, UR NEGATIVE (NEGATIVE); BENZODIAZEPINES, UR POSITIVE (NEGATIVE); OPIATES, UR POSITIVE (NEGATIVE); PHENCYCLIDINE, UR NEGATIVE (NEGATIVE)
[2018-07-26] MEDS ORDERED: Etomidate 20 mg/10ml Inj IV ONE (13:02)
[2018-07-26] MEDS ORDERED: Succinylcholine 200 mg/10 ml Inj IV ONE (13:02)
--- NOTE | 2018-07-26 13:09 | RAD ---
Date of service: 07/26/2018 HISTORY: pneumonia COMPARISON: 05/22/2018 FINDINGS: LUNGS: No active pulmonary disease. PLEURA: No significant pleural effusion identified, no pneumothorax apparent. CARDIOVASCULAR: Normal. OSSEOUS STRUCTURES: No significant abnormalities. VISUALIZED UPPER ABDOMEN: Normal. OTHER FINDINGS: None. IMPRESSION: No active disease.
[2018-07-26] MEDS: Propofol 10 mg/ml 1,000 MG/100 ML VIAL IV PRN ×3 (13:21→23:13)
[2018-07-26] MEDS ORDERED: Propofol 10 mg/ml 1,000 MG/100 ML VIAL ONE (13:21)
--- NOTE | 2018-07-26 14:24 | RAD ---
Date of service: 07/26/2018 HISTORY: tube placement COMPARISON: No prior. FINDINGS: LUNGS: No active pulmonary disease. A total of 5 films were taken during endotracheal tube placement. The final film shows the tube in satisfactory position PLEURA: No significant pleural effusion identified, no pneumothorax apparent. CARDIOVASCULAR: Mild cardiomegaly OSSEOUS STRUCTURES: No significant abnormalities. VISUALIZED UPPER ABDOMEN: Normal. OTHER FINDINGS: None. IMPRESSION: Endotracheal tube in satisfactory position just below the level of the clavicles
--- NOTE | 2018-07-26 15:41 | CT ---
Date of service: 07/26/2018 PROCEDURE: CT HEAD WITHOUT CONTRAST. HISTORY: altered mentation COMPARISON: None available. TECHNIQUE: Axial computed tomography images were obtained through the head/brain without intravenous contrast. Radiation dose: Total exam DLP = 1031 mGy-cm. This CT exam was performed using one or more of the following dose reduction techniques: Automated exposure control, adjustment of the mA and/or kV according to patient size, and/or use of iterative reconstruction technique. FINDINGS: HEMORRHAGE: No intracranial hemorrhage. BRAIN: No mass effect or edema. No atrophy or chronic microvascular ischemic changes. VENTRICLES: Unremarkable. No hydrocephalus. CALVARIUM: Unremarkable. PARANASAL SINUSES: Unremarkable as visualized. No significant inflammatory changes. MASTOID AIR CELLS: Unremarkable as visualized. No inflammatory changes. OTHER FINDINGS: None IMPRESSION: No acute intracranial findings
--- NOTE | 2018-07-26 16:21 | CARD ---
APPROVED REPORT Date of service: 07/26/2018 EKG Measurement Heart [id number] <Conclusion> Sinus tachycardia Incomplete right bundle branch block Borderline ECG
--- NOTE | 2018-07-26 16:34 | CP.PCM.CON ---
History of Present Illness - History of Present Illness History of Present Illness: MICU CONSULT NOTE HPI Patient is 63yo female with PMHx of Obesity, DM, HTN, opiod abuse, chronic back pain, presented with lethargy, faitgue, and AMS as per the , Moses Eason who provided all of the history. Pt was taking opiods for chronic back pain, and yesterday became fatigued, lethargic less interactive. In the ER sev eral rounds of Narcan did not improved mentla status, subsequently intubated. CT head negative PMhx Obesity, DM, HTN, opiod abuse, chronic back pain PSHx NONE Meds as per EMR FHx NC Social denies smoking, etoh, drug use ROS cannot obtain Allergies NKDA Review of Systems - Review of Systems Review of Systems: as per HPI Past Patient History - Past Social History Smoking Status: Never Smoked - CARDIAC Hx Cardiac Disorders: Yes Hx Hypertension: Yes - PULMONARY Hx Respiratory Disorders: No - NEUROLOGICAL Hx Neurological Disorder: No - HEENT Hx HEENT Problems: Yes Hx Cataracts: Yes (with surgery) - RENAL Hx Chronic Kidney Disease: No - ENDOCRINE/METABOLIC Hx Diabetes Mellitus Type 1: Yes - HEMATOLOGICAL/ONCOLOGICAL Hx Blood Disorders: No - INTEGUMENTARY Hx Dermatological Problems: Yes (L great toe bullae) - MUSCULOSKELETAL/RHEUMATOLOGICAL Hx Arthritis: Yes - GASTROINTESTINAL Hx Gastrointestinal Disorders: No - GENITOURINARY/GYNECOLOGICAL Hx Genitourinary Disorders: No - PSYCHIATRIC Hx Depression: No Hx Emotional Abuse: No Hx Physical Abuse: No Hx Substance Use: No - SURGICAL HISTORY Other/Comment: neck surgery - ANESTHESIA Hx Anesthesia: Yes Hx Anesthesia Reactions: No Hx Malignant Hyperthermia: No Meds Allergies/Adverse Reactions: Allergies Allergy/AdvReac Type Severity Reaction Status Date / Time No Known Allergies Allergy Verified 05/22/18 22:41 - Medications Medications: Current Medications Enoxaparin Sodium (Lovenox) 40 mg SC DAILY TOMMIE; Protocol Propofol (Diprivan) 1,000 mg in 100 mls @ 4.627 mls/hr IV .[id number] PRN; Protoc ol PRN Reason: TITRATE PER MD ORDER Sodium Chloride (Sodium Chloride 0.9%) 1,000 mls @ 150 mls/hr IV .[id number] TOMMIE Pantoprazole Sodium (Protonix Inj) 40 mg IVP DAILY TOMMIE Physical Exam - Constitutional Appears: Non-toxic, No Acute Distress - Head Exam Head Exam: NORMAL INSPECTION - Eye Exam Eye Exam: Normal appearance, PERRL - ENT Exam ENT Exam: Mucous Membranes Moist - Respiratory Exam Respiratory Exam: Clear to Auscultation Bilateral, NORMAL BREATHING PATTERN - Cardiovascular Exam Cardiovascular Exam: REGULAR RHYTHM, +S1, +S2 - GI/Abdominal Exam GI & Abdominal Exam: Normal Bowel Sounds, Soft - Extremities Exam Extremities exam: Positive for: normal inspection - Neurological Exam Additional comments: intubated, sedated - Skin Skin Exam: Normal Color, Warm Results - Vital Signs Recent Vital Signs: Last Vital Signs Temp 98.9 F 07/26/18 11:00 Pulse 85 07/26/18 16:13 Resp 14 07/26/18 16:13 BP 120/75 07/26/18 16:13 Pulse Ox 100 07/26/18 16:13 - Labs Result Diagrams: 07/26/18 11:42 07/26/18 11:42 Labs: Laboratory Results - last 24 hr 07/26/18 07/26/18 07/26/18 11:42 11:42 11:42 WBC 12.6 H RBC 3.88 Hgb 11.2 L Hct 37.2 MCV 95.9 D MCH 28.9 MCHC 30.1 L RDW 15.1 H Plt Count 236 MPV 10.0 Gran % 87.5 H Lymph % (Auto) 7.9 L [place] % (Auto) 4.2 Eos % (Auto) 0.2 L Baso % (Auto) 0.2 Gran # 11.04 H Lymph # (Auto) 1.0 L [place] # (Auto) 0.5 Eos # (Auto) 0.0 Baso # (Auto) 0.03 Sodium 140 Potassium 5.5 H Chloride 105 Carbon Dioxide 29 Anion Gap 12 BUN 18 Creatinine 1.2 Est GFR ( Amer) 55 Est GFR (Non-Af Amer) 46 POC Glucose (mg/dL) Random Glucose 100 Calcium 8.4 Magnesium 2.3 H Total Bilirubin 0.3 AST 23 ALT 16 Alkaline Phosphatase 109 Total Protein 7.1 Albumin 3.6 Globulin 3.5 Albumin/Globulin Ratio 1.0 L Urine Opiates Screen Urine Methadone Screen Ur Barbiturates Screen Ur Phencyclidine Scrn Ur Amphetamines Screen U Benzodiazepines Scrn U Oth Cocaine Metabols U Cannabinoids Screen Alcohol, Quantitative < 10 07/26/18 07/26/18 11:42 16:02 WBC RBC Hgb Hct MCV MCH MCHC RDW Plt Count MPV Gran % Lymph % (Auto) [place] % (Auto) Eos % (Auto) Baso % (Auto) Gran # Lymph # (Auto) [place] # (Auto) Eos # (Auto) Baso # (Auto) Sodium Potassium Chloride Carbon Dioxide Anion Gap BUN Creatinine Est GFR ( Amer) Est GFR (Non-Af Amer) POC Glucose (mg/dL) 108 Random Glucose Calcium Magnesium Total Bilirubin AST ALT Alkaline Phosphatase Total Protein Albumin Globulin Albumin/Globulin Ratio Urine Opiates Screen Positive H Urine Methadone Screen Positive H Ur Barbiturates Screen Negative Ur Phencyclidine Scrn Negative Ur Amphetamines Screen Negative U Benzodiazepines Scrn Positive H U Oth Cocaine Metabols Negative U Cannabinoids Screen Negative Alcohol, Quantitative - Imaging and Cardiology CT scan - head Status: Image reviewed by me, Report reviewed by me Assessment & Plan - Assessment and Plan (Free Text) Assessment: 63yo female a/w respiratory failure, AMS Respiratory failure AMS DM HTN Hx of Opiod Abuse - currently afebrile, BP stable, comfortable in NAD, intubated, sedated - Utox positive for opiods, BZD, Methadone - labs, imaging, chart reviewed - CT head negative - normal bicarb, no AG on BMP, ABG pending, EtOH negative - infectious workup in progress Recommend: - cont with vent support, low tidal vol ventilation, obtain an ABG, daily CXR - panculture, UCx, BCx, Procal - IVF hydration - FS control - Psych consult once extubated - monitor LFTs - Monitor Cr - GI ppx - DVT ppx - Admit to MICU Critical care time 40 minutes
[2018-07-26 16:47] LABS: ARTERIAL BLOOD GAS HCO3 27.8 mmol/L (21-28); ARTERIAL BLOOD GAS O2 SAT 99.9 % (95-98); ARTERIAL BLOOD GAS PCO2 62 mm/Hg (35-45); ARTERIAL BLOOD GAS PH 7.26 (7.35-7.45); ARTERIAL BLOOD GAS TCO2 29.7 mmol.L (22-28)
[2018-07-26] MEDS: Sodium Chloride 0.9% 1,000 ML IV SCH (16:50)
[2018-07-26 20:00] LABS: URINE BILIRUBIN NEGATIVE (NEGATIVE); URINE BLOOD NEGATIVE (NEGATIVE); URINE GLUCOSE (UA) NEGATIVE (NEGATIVE); URINE LEUKOCYTE ESTERASE TRACE Leu/uL (NEGATIVE); URINE PROTEIN NEGATIVE mg/dL (<30 mg/dL); URINE UROBILINOGEN 0.2 E.U./dL (<1 E.U./dL)
[2018-07-26 20:04] LABS: URINE APPEARANCE CLEAR (CLEAR)
[2018-07-26 20:05] LABS: URINE AMORPHOUS SEDIMENT SMALL; URINE BACTERIA SMALL (NEG)
[2018-07-27] MEDS: Propofol 10 mg/ml 1,000 MG/100 ML VIAL IV PRN ×2 (04:19→06:00)
[2018-07-27] MEDS: Sodium Chloride 0.9% 1,000 ML IV SCH ×2 (04:39→13:19)
[2018-07-27 05:15] LABS: ARTERIAL BLOOD GAS HCO3 27.7 mmol/L (21-28); ARTERIAL BLOOD GAS PCO2 55 mm/Hg (35-45); ARTERIAL BLOOD GAS PH 7.31 (7.35-7.45); ARTERIAL BLOOD GAS TCO2 29.4 mmol.L (22-28)
[2018-07-27 07:09] LABS: BASO # 0.01 K/mm3 (0.0-2.0); BASO % 0.1 % (0.0-3.0); EOS % 0.5 % (1.5-5.0); GRAN # 6.45 (1.4-6.5); GRAN % 73.8 % (50.0-68.0); HEMOGLOBIN 9.8 g/dL (12.0-16.0); LYMPH # 1.5 (1.2-3.4); MEAN CELL VOLUME 93.8 fl (80.0-105.0); MEAN CORPUSCULAR HEMOGLOBIN 28.7 pg (25.0-35.0); MEAN CORPUSCULAR HGB CONC 30.6 g/dl (31.0-37.0); MEAN PLATELET VOLUME 9.4 fl (7.0-11.0); MONO # 0.8 (0.1-0.6); MONO % 8.6 % (1.0-6.0); RBC 3.41 10^6/uL (3.5-6.1); WHITE BLOOD COUNT 8.7 10^3/ul (4.5-11.0)
[2018-07-27 07:55] LABS: ALT/SGPT 19 U/L (7-56); AST/SGOT 20 U/L (14-36); BLOOD UREA NITROGEN 13 mg/dL (7-21); CALCIUM 8.3 mg/dL (8.4-10.5); GFR NON-AFRICAN AMERICAN 56
--- NOTE | 2018-07-27 09:53 | RAD ---
Date of service: 07/27/2018 HISTORY: intubated COMPARISON: 07/26/2018 FINDINGS: LUNGS: No active pulmonary disease. PLEURA: No significant pleural effusion identified, no pneumothorax apparent. CARDIOVASCULAR: Normal. OSSEOUS STRUCTURES: No significant abnormalities. VISUALIZED UPPER ABDOMEN: Normal. OTHER FINDINGS: None. IMPRESSION: The endotracheal tube is in satisfactory position at the level of the clavicles
[2018-07-27] MEDS: Enoxaparin 40 mg Syringe SC SCH (10:24)
[2018-07-27] MEDS ORDERED: Dexmedetomidine 400mcg/100mL 400 MCG/100 ML BOTTLE IV PRN (10:36)
--- NOTE | 2018-07-27 13:06 | PN ---
DATE: 07/27/2018 SUBJECTIVE: This is a 63-year-old lady who presented yesterday with multidrug overdose including opiates, methadone and benzodiazepines with subsequent inability to protect her airways, which ended up in her intubation. Night was uneventful. The patient passed pressure support trial and was extubated to BiPAP. She is alert, awake, following commands, off of propofol for more than 1 hour. PHYSICAL EXAMINATION: VITAL SIGNS: Heart rate 116, oxygen saturation 97% on 50% FiO2, heart rate 109, respiratory rate 24, blood pressure 157/85. ENT: Head and neck atraumatic. LUNGS: Clear to auscultation bilaterally. HEART: Regular rate and rhythm. S1 and S2 normal. ABDOMEN: Soft, nontender, nondistended. MUSCULOSKELETAL: No C/C/E. NEURO: The patient moves all extremities spontaneously. SKIN: Moist. PSYCH: The patient is alert, awake and oriented. LABORATORY DATA: WBC 8.7, hemoglobin 9.8, platelet count 173. Sodium 140, potassium 3.9, chloride 108, carbon dioxide 27, BUN 13, creatinine 1 down from 1.2, glucose 94. Procalcitonin less than 0.05. TSH 0.21. ABG is 7.31/55/67, which is improvement compared with previous ABGs. Urine is positive for nitrites and leukocyte esterase. MEDICATIONS: Lovenox 40 mg subcu daily, Protonix, normal saline 150 mL/hour, Precedex p.r.n., ceftriaxone 1 g IV daily. ASSESSMENT AND PLAN: This is a 63-year-old lady who presented with multidrug overdose with substantially suppressed mental and respiratory status requiring intubation for airway protection and hypercapnic respiratory failure. The patient woke up and able to maintain ventilation with subsequent extubation to BiPAP. The patient is on BiPAP 12/6 with FiO2 60%. The patient is comfortable and appears doing well. Repeat ABG later on to follow up on ventilatory and gas exchange parameters. We will continue with antibiotics for urinary tract infection. We will continue with deep vein thrombosis, gastrointestinal prophylaxis. Head of bed elevated at >35 degrees. Precedex p.r.n. if agitated. ccm time 40 min Aneudy Tran MD [email or web address]
[2018-07-27] MEDS: cefTRIAXone 1 gm 1 GM/100 ML BAG IVPB SCH (13:12)
--- NOTE | 2018-07-27 14:33 | CP.CCUPN ---
<Mykel Hilliard - Last Filed: 07/27/18 14:52> CCU Subjective - Physician Review Subjective (Free Text): Mykel Hilliard, PGY-1, CCU Progress Note for Dr. Tran Patient seen and examined at bedside. Patient was intubated and titrated off of propofol. Patient regained consciousness and tried to extubate herself manually. Respiratory therapist was called and he extubated patient. Patient is currently on BiPap and tolerating BiPap well. 12-point ROS was unattainable due to recent intubation. CCU Objective - Vital Signs / Intake & Output Vital Signs (Last 4 hours): Vital Signs Pulse 07/27/18 10:39 110 H Intake and Output (Last 8hrs): Intake & Output 07/26/18 07/27/18 07/27/18 22:59 06:59 14:59 Intake Total 50 2376 100 Output Total 1950 Balance 50 426 100 Weight 170 lb 185 lb Intake: IV 50 2376 100 0.9 ns 1800 propofol 276 Output: Urine 1950 Urethral (Arauz) 1950 - Physical Exam Head: Positive for: Atraumatic, Normocephalic Pupils: Positive for: PERRL Extroacular Muscles: Positive for: EOMI Conjunctiva: Positive for: Normal Nose (External): Positive for: Atraumatic Respiratory/Chest: Positive for: Clear to Auscultation Cardiovascular: Positive for: Regular Rate and Rhythm Abdomen: Negative for: Tenderness, Distention, Peritoneal Signs, Rebound, Guarding Upper Extremity: Positive for: Normal Inspection, NORMAL PULSES Lower Extremity: Positive for: Normal Inspection, NORMAL PULSES. Negative for: CALF TENDERNESS Neurological: Positive for: GCS=15, CN II-XII Intact (grossly) Skin: Positive for: Warm, Dry, Normal Color Psychiatric: Positive for: Alert. Negative for: Normal Insight, Normal Concentration - Medications Active Medications: Active Medications Generic Name Dose Route Start Last Admin Trade Name Freq PRN Reason Stop Dose Admin Enoxaparin Sodium 40 mg 07/27/18 10:00 07/27/18 10:24 Lovenox SC 40 mg DAILY TOMMIE Administration Protocol Propofol 1,000 mg in 100 mls @ 4.627 mls/hr 07/26/18 13:23 07/27/18 10:25 Diprivan IV Infused .[id number] PRN Titration TITRATE PER MD ORDER Protocol 10 MCG/KG/MIN Dexmedetomidine HCl 400 mcg in 100 mls @ 4.196 mls/hr 07/27/18 10:36 Precedex 400mcg/100ml IV .[id number] PRN Agitation Protocol 0.2 MCG/KG/HR Ceftriaxone Sodium 1 gm in 100 mls @ 100 mls/hr 07/27/18 10:45 07/27/18 13:12 Rocephin 1 Gram Ivpb IVPB 100 mls/hr DAILY TOMMIE Administration Protocol Sodium Chloride 1,000 mls @ 100 mls/hr 07/27/18 12:08 07/27/18 13:19 Sodium Chloride 0.9% IV 100 mls/hr .Q10H TOMMIE Administration Lorazepam 0.5 mg 07/27/18 12:13 Ativan IVP Q6H PRN Anxiety Protocol Naproxen 550 mg 07/27/18 18:00 Anaprox Ds PO BID TOMMIE Ondansetron HCl 4 mg 07/27/18 12:12 Zofran Inj IVP Q6H PRN Nausea/Vomiting Trazodone HCl 100 mg 07/27/18 22:00 Desyrel PO HS TOMMIE - Patient Studies Lab Studies: Lab Studies 07/27/18 07/27/18 07/27/18 Range/Units 11:15 07:33 06:40 WBC (4.5-11.0) 10^3/ul RBC (3.5-6.1) 10^6/uL Hgb (12.0-16.0) g/dL Hct (36.0-48.0) % MCV (80.0-105.0) fl MCH (25.0-35.0) pg MCHC (31.0-37.0) g/dl RDW (11.5-14.5) % Plt Count (120.0-450.0) 10^3/uL MPV (7.0-11.0) fl Gran % (50.0-68.0) % Lymph % (Auto) (22.0-35.0) % [place] % (Auto) (1.0-6.0) % Eos % (Auto) (1.5-5.0) % Baso % (Auto) (0.0-3.0) % Gran # (1.4-6.5) Lymph # (Auto) (1.2-3.4) [place] # (Auto) (0.1-0.6) Eos # (Auto) (0.0-0.7) Baso # (Auto) (0.0-2.0) K/mm3 pCO2 (35-45) mm/Hg pO2 (80-100) mm/Hg HCO3 (21-28) mmol/L ABG pH (7.35-7.45) ABG Total CO2 (22-28) mmol.L ABG O2 Saturation (95-98) % ABG O2 Content (15-23) ML/dl ABG Base Excess (-2.0-3.0) mmol/L ABG Hemoglobin (11.7-17.4) g/dL ABG Carboxyhemoglobin (0.5-1.5) % POC ABG HHb (Measured) (0-5) % ABG Methemoglobin (0.0-3.0) % ABG O2 Capacity (16-24) mL/dl ABG Potassium (3.6-5.2) mmol/L Hgb O2 Saturation (95.0-98.0) % Sodium (132-148) mmol/L Chloride (98-107) mmol/L Glucose (65-105) mg/dl Lactate (0.7-2.1) mmol/L FiO2 % Potassium (3.6-5.0) mmol/L Carbon Dioxide (21-33) mmol/L Anion Gap (10-20) BUN (7-21) mg/dL Creatinine (0.7-1.2) mg/dl Est GFR ( Amer) Est GFR (Non-Af Amer) POC Glucose (mg/dL) 110 93 (65-110) mg/dL Random Glucose (70-110) mg/dL Calcium (8.4-10.5) mg/dL Phosphorus (2.5-4.5) mg/dL Magnesium (1.7-2.2) mg/dL Total Bilirubin (0.2-1.3) mg/dL AST (14-36) U/L ALT (7-56) U/L Alkaline Phosphatase (38-126) U/L Total Protein (5.8-8.3) g/dL Albumin (3.0-4.8) g/dL Globulin gm/dL Albumin/Globulin Ratio (1.1-1.8) Procalcitonin (0.19-0.49) NG/ML TSH 3rd Generation 0.21 L (0.46-4.68) mIU/mL Arterial Blood Potassium (3.6-5.2) mmol/L Urine Color (YELLOW) Urine Appearance (CLEAR) Urine pH (4.7-8.0) Ur Specific [place] (1.005-1.035) Urine Protein (<30 mg/dL) mg/dL Urine Glucose (UA) (NEGATIVE) mg/dL Urine Ketones (NEGATIVE) mg/dL Urine Blood (NEGATIVE) Urine Nitrate (NEGATIVE) Urine Bilirubin (NEGATIVE) Urine Urobilinogen (<1 E.U./dL) E.U./dL Ur Leukocyte Esterase (NEGATIVE) Dennis/uL Urine RBC Urine WBC (0-6) /hpf Ur Epithelial Cells (0-5) /hpf Amorphous Sediment Urine Bacteria (NEG) Acetaminophen (10.0-20.0) ug/ml 07/27/18 07/27/18 07/27/18 Range/Units 06:40 06:40 05:05 WBC 8.7 D (4.5-11.0) 10^3/ul RBC 3.41 L (3.5-6.1) 10^6/uL Hgb 9.8 L (12.0-16.0) g/dL Hct 32.0 L (36.0-48.0) % MCV 93.8 (80.0-105.0) fl MCH 28.7 (25.0-35.0) pg MCHC 30.6 L (31.0-37.0) g/dl RDW 15.0 H (11.5-14.5) % Plt Count 173 (120.0-450.0) 10^3/uL MPV 9.4 (7.0-11.0) fl Gran % 73.8 H (50.0-68.0) % Lymph % (Auto) 17.0 L (22.0-35.0) % [place] % (Auto) 8.6 H (1.0-6.0) % Eos % (Auto) 0.5 L (1.5-5.0) % Baso % (Auto) 0.1 (0.0-3.0) % Gran # 6.45 (1.4-6.5) Lymph # (Auto) 1.5 (1.2-3.4) [place] # (Auto) 0.8 H (0.1-0.6) Eos # (Auto) 0.0 (0.0-0.7) Baso # (Auto) 0.01 (0.0-2.0) K/mm3 pCO2 55 H (35-45) mm/Hg pO2 67.0 L (80-100) mm/Hg HCO3 27.7 (21-28) mmol/L ABG pH 7.31 L (7.35-7.45) ABG Total CO2 29.4 H (22-28) mmol.L ABG O2 Saturation 96.0 (95-98) % ABG O2 Content (15-23) ML/dl ABG Base Excess 0.4 (-2.0-3.0) mmol/L ABG Hemoglobin (11.7-17.4) g/dL ABG Carboxyhemoglobin (0.5-1.5) % POC ABG HHb (Measured) (0-5) % ABG Methemoglobin (0.0-3.0) % ABG O2 Capacity (16-24) mL/dl ABG Potassium 3.6 (3.6-5.2) mmol/L Hgb O2 Saturation (95.0-98.0) % Sodium 140 141.0 (132-148) mmol/L Chloride 108 H 113.0 H (98-107) mmol/L Glucose 89 (65-105) mg/dl Lactate 0.5 L (0.7-2.1) mmol/L FiO2 50.0 % Potassium 3.9 (3.6-5.0) mmol/L Carbon Dioxide 27 (21-33) mmol/L Anion Gap 9 L (10-20) BUN 13 (7-21) mg/dL Creatinine 1.0 (0.7-1.2) mg/dl Est GFR ( Amer) > 60 Est GFR (Non-Af Amer) 56 POC Glucose (mg/dL) (65-110) mg/dL Random Glucose 94 (70-110) mg/dL Calcium 8.3 L (8.4-10.5) mg/dL Phosphorus 3.2 (2.5-4.5) mg/dL Magnesium 2.0 (1.7-2.2) mg/dL Total Bilirubin 0.3 (0.2-1.3) mg/dL AST 20 (14-36) U/L ALT 19 (7-56) U/L Alkaline Phosphatase 114 (38-126) U/L Total Protein 6.0 (5.8-8.3) g/dL Albumin 3.0 (3.0-4.8) g/dL Globulin 3.0 gm/dL Albumin/Globulin Ratio 1.0 L (1.1-1.8) Procalcitonin (0.19-0.49) NG/ML TSH 3rd Generation (0.46-4.68) mIU/mL Arterial Blood Potassium 3.6 (3.6-5.2) mmol/L Urine Color (YELLOW) Urine Appearance (CLEAR) Urine pH (4.7-8.0) Ur Specific [place] (1.005-1.035) Urine Protein (<30 mg/dL) mg/dL Urine Glucose (UA) (NEGATIVE) mg/dL Urine Ketones (NEGATIVE) mg/dL Urine Blood (NEGATIVE) Urine Nitrate (NEGATIVE) Urine Bilirubin (NEGATIVE) Urine Urobilinogen (<1 E.U./dL) E.U./dL Ur Leukocyte Esterase (NEGATIVE) Dennis/uL Urine RBC Urine WBC (0-6) /hpf Ur Epithelial Cells (0-5) /hpf Amorphous Sediment Urine Bacteria (NEG) Acetaminophen (10.0-20.0) ug/ml 07/26/18 07/26/18 07/26/18 Range/Units 22:01 19:30 16:30 WBC (4.5-11.0) 10^3/ul RBC (3.5-6.1) 10^6/uL Hgb (12.0-16.0) g/dL Hct (36.0-48.0) % MCV (80.0-105.0) fl MCH (25.0-35.0) pg MCHC (31.0-37.0) g/dl RDW (11.5-14.5) % Plt Count (120.0-450.0) 10^3/uL MPV (7.0-11.0) fl Gran % (50.0-68.0) % Lymph % (Auto) (22.0-35.0) % [place] % (Auto) (1.0-6.0) % Eos % (Auto) (1.5-5.0) % Baso % (Auto) (0.0-3.0) % Gran # (1.4-6.5) Lymph # (Auto) (1.2-3.4) [place] # (Auto) (0.1-0.6) Eos # (Auto) (0.0-0.7) Baso # (Auto) (0.0-2.0) K/mm3 pCO2 62 H (35-45) mm/Hg pO2 203.0 H (80-100) mm/Hg HCO3 27.8 (21-28) mmol/L ABG pH 7.26 L (7.35-7.45) ABG Total CO2 29.7 H (22-28) mmol.L ABG O2 Saturation 99.9 H (95-98) % ABG O2 Content 14.0 L (15-23) ML/dl ABG Base Excess -0.1 (-2.0-3.0) mmol/L ABG Hemoglobin 10.0 L (11.7-17.4) g/dL ABG Carboxyhemoglobin 2.9 H (0.5-1.5) % POC ABG HHb (Measured) 0.1 (0-5) % ABG Methemoglobin 0.9 (0.0-3.0) % ABG O2 Capacity 14.0 L (16-24) mL/dl ABG Potassium (3.6-5.2) mmol/L Hgb O2 Saturation 96.1 (95.0-98.0) % Sodium (132-148) mmol/L Chloride (98-107) mmol/L Glucose (65-105) mg/dl Lactate (0.7-2.1) mmol/L FiO2 100.0 % Potassium (3.6-5.0) mmol/L Carbon Dioxide (21-33) mmol/L Anion Gap (10-20) BUN (7-21) mg/dL Creatinine (0.7-1.2) mg/dl Est GFR ( Amer) Est GFR (Non-Af Amer) POC Glucose (mg/dL) 91 (65-110) mg/dL Random Glucose (70-110) mg/dL Calcium (8.4-10.5) mg/dL Phosphorus (2.5-4.5) mg/dL Magnesium (1.7-2.2) mg/dL Total Bilirubin (0.2-1.3) mg/dL AST (14-36) U/L ALT (7-56) U/L Alkaline Phosphatase (38-126) U/L Total Protein (5.8-8.3) g/dL Albumin (3.0-4.8) g/dL Globulin gm/dL Albumin/Globulin Ratio (1.1-1.8) Procalcitonin (0.19-0.49) NG/ML TSH 3rd Generation (0.46-4.68) mIU/mL Arterial Blood Potassium (3.6-5.2) mmol/L Urine Color yellow (YELLOW) Urine Appearance Clear (CLEAR) Urine pH 6.0 (4.7-8.0) Ur Specific [place] 1.015 (1.005-1.035) Urine Protein Negative (<30 mg/dL) mg/dL Urine Glucose (UA) Negative (NEGATIVE) mg/dL Urine Ketones Negative (NEGATIVE) mg/dL Urine Blood Negative (NEGATIVE) Urine Nitrate Positive H (NEGATIVE) Urine Bilirubin Negative (NEGATIVE) Urine Urobilinogen 0.2 (<1 E.U./dL) E.U./dL Ur Leukocyte Esterase Trace H (NEGATIVE) Dennis/uL Urine RBC TEST NOT PERFORMED Urine WBC 5 - 10 (0-6) /hpf Ur Epithelial Cells 10 - 12 (0-5) /hpf Amorphous Sediment Small Urine Bacteria Small (NEG) Acetaminophen (10.0-20.0) ug/ml 07/26/18 07/26/18 07/26/18 Range/Units 16:02 11:42 11:42 WBC (4.5-11.0) 10^3/ul RBC (3.5-6.1) 10^6/uL Hgb (12.0-16.0) g/dL Hct (36.0-48.0) % MCV (80.0-105.0) fl MCH (25.0-35.0) pg MCHC (31.0-37.0) g/dl RDW (11.5-14.5) % Plt Count (120.0-450.0) 10^3/uL MPV (7.0-11.0) fl Gran % (50.0-68.0) % Lymph % (Auto) (22.0-35.0) % [place] % (Auto) (1.0-6.0) % Eos % (Auto) (1.5-5.0) % Baso % (Auto) (0.0-3.0) % Gran # (1.4-6.5) Lymph # (Auto) (1.2-3.4) [place] # (Auto) (0.1-0.6) Eos # (Auto) (0.0-0.7) Baso # (Auto) (0.0-2.0) K/mm3 pCO2 (35-45) mm/Hg pO2 (80-100) mm/Hg HCO3 (21-28) mmol/L ABG pH (7.35-7.45) ABG Total CO2 (22-28) mmol.L ABG O2 Saturation (95-98) % ABG O2 Content (15-23) ML/dl ABG Base Excess (-2.0-3.0) mmol/L ABG Hemoglobin (11.7-17.4) g/dL ABG Carboxyhemoglobin (0.5-1.5) % POC ABG HHb (Measured) (0-5) % ABG Methemoglobin (0.0-3.0) % ABG O2 Capacity (16-24) mL/dl ABG Potassium (3.6-5.2) mmol/L Hgb O2 Saturation (95.0-98.0) % Sodium (132-148) mmol/L Chloride (98-107) mmol/L Glucose (65-105) mg/dl Lactate (0.7-2.1) mmol/L FiO2 % Potassium (3.6-5.0) mmol/L Carbon Dioxide (21-33) mmol/L Anion Gap (10-20) BUN (7-21) mg/dL Creatinine (0.7-1.2) mg/dl Est GFR ( Amer) Est GFR (Non-Af Amer) POC Glucose (mg/dL) 108 (65-110) mg/dL Random Glucose (70-110) mg/dL Calcium (8.4-10.5) mg/dL Phosphorus (2.5-4.5) mg/dL Magnesium (1.7-2.2) mg/dL Total Bilirubin (0.2-1.3) mg/dL AST (14-36) U/L ALT (7-56) U/L Alkaline Phosphatase (38-126) U/L Total Protein (5.8-8.3) g/dL Albumin (3.0-4.8) g/dL Globulin gm/dL Albumin/Globulin Ratio (1.1-1.8) Procalcitonin < 0.05 L (0.19-0.49) NG/ML TSH 3rd Generation (0.46-4.68) mIU/mL Arterial Blood Potassium (3.6-5.2) mmol/L Urine Color (YELLOW) Urine Appearance (CLEAR) Urine pH (4.7-8.0) Ur Specific [place] (1.005-1.035) Urine Protein (<30 mg/dL) mg/dL Urine Glucose (UA) (NEGATIVE) mg/dL Urine Ketones (NEGATIVE) mg/dL Urine Blood (NEGATIVE) Urine Nitrate (NEGATIVE) Urine Bilirubin (NEGATIVE) Urine Urobilinogen (<1 E.U./dL) E.U./dL Ur Leukocyte Esterase (NEGATIVE) Dennis/uL Urine RBC Urine WBC (0-6) /hpf Ur Epithelial Cells (0-5) /hpf Amorphous Sediment Urine Bacteria (NEG) Acetaminophen < 10.0 L (10.0-20.0) ug/ml Laboratory Results - last 24 hr 07/26/18 07/26/18 07/26/18 11:42 11:42 16:02 WBC RBC Hgb Hct MCV MCH MCHC RDW Plt Count MPV Gran % Lymph % (Auto) [place] % (Auto) Eos % (Auto) Baso % (Auto) Gran # Lymph # (Auto) [place] # (Auto) Eos # (Auto) Baso # (Auto) pCO2 pO2 HCO3 ABG pH ABG Total CO2 ABG O2 Saturation ABG O2 Content ABG Base Excess ABG Hemoglobin ABG Carboxyhemoglobin POC ABG HHb (Measured) ABG Methemoglobin ABG O2 Capacity ABG Potassium Hgb O2 Saturation Sodium Chloride Glucose Lactate FiO2 Potassium Carbon Dioxide Anion Gap BUN Creatinine Est GFR ( Amer) Est GFR (Non-Af Amer) POC Glucose (mg/dL) 108 Random Glucose Calcium Phosphorus Magnesium Total Bilirubin AST ALT Alkaline Phosphatase Total Protein Albumin Globulin Albumin/Globulin Ratio Procalcitonin < 0.05 L TSH 3rd Generation Arterial Blood Potassium Urine Color Urine Appearance Urine pH Ur Specific [place] Urine Protein Urine Glucose (UA) Urine Ketones Urine Blood Urine Nitrate Urine Bilirubin Urine Urobilinogen Ur Leukocyte Esterase Urine RBC Urine WBC Ur Epithelial Cells Amorphous Sediment Urine Bacteria Acetaminophen < 10.0 L 07/26/18 07/26/18 07/26/18 16:30 19:30 22:01 WBC RBC Hgb Hct MCV MCH MCHC RDW Plt Count MPV Gran % Lymph % (Auto) [place] % (Auto) Eos % (Auto) Baso % (Auto) Gran # Lymph # (Auto) [place] # (Auto) Eos # (Auto) Baso # (Auto) pCO2 62 H pO2 203.0 H HCO3 27.8 ABG pH 7.26 L ABG Total CO2 29.7 H ABG O2 Saturation 99.9 H ABG O2 Content 14.0 L ABG Base Excess -0.1 ABG Hemoglobin 10.0 L ABG Carboxyhemoglobin 2.9 H POC ABG HHb (Measured) 0.1 ABG Methemoglobin 0.9 ABG O2 Capacity 14.0 L ABG Potassium Hgb O2 Saturation 96.1 Sodium Chloride Glucose Lactate FiO2 100.0 Potassium Carbon Dioxide Anion Gap BUN Creatinine Est GFR ( Amer) Est GFR (Non-Af Amer) POC Glucose (mg/dL) 91 Random Glucose Calcium Phosphorus Magnesium Total Bilirubin AST ALT Alkaline Phosphatase Total Protein Albumin Globulin Albumin/Globulin Ratio Procalcitonin TSH 3rd Generation Arterial Blood Potassium Urine Color yellow Urine Appearance Clear Urine pH 6.0 Ur Specific [place] 1.015 Urine Protein Negative Urine Glucose (UA) Negative Urine Ketones Negative Urine Blood Negative Urine Nitrate Positive H Urine Bilirubin Negative Urine Urobilinogen 0.2 Ur Leukocyte Esterase Trace H Urine RBC TEST NOT PERFORMED Urine WBC 5 - 10 Ur Epithelial Cells 10 - 12 Amorphous Sediment Small Urine Bacteria Small Acetaminophen 07/27/18 07/27/18 07/27/18 05:05 06:40 06:40 WBC 8.7 D RBC 3.41 L Hgb 9.8 L Hct 32.0 L MCV 93.8 MCH 28.7 MCHC 30.6 L RDW 15.0 H Plt Count 173 MPV 9.4 Gran % 73.8 H Lymph % (Auto) 17.0 L [place] % (Auto) 8.6 H Eos % (Auto) 0.5 L Baso % (Auto) 0.1 Gran # 6.45 Lymph # (Auto) 1.5 [place] # (Auto) 0.8 H Eos # (Auto) 0.0 Baso # (Auto) 0.01 pCO2 55 H pO2 67.0 L HCO3 27.7 ABG pH 7.31 L ABG Total CO2 29.4 H ABG O2 Saturation 96.0 ABG O2 Content ABG Base Excess 0.4 ABG Hemoglobin ABG Carboxyhemoglobin POC ABG HHb (Measured) ABG Methemoglobin ABG O2 Capacity ABG Potassium 3.6 Hgb O2 Saturation Sodium 141.0 140 Chloride 113.0 H 108 H Glucose 89 Lactate 0.5 L FiO2 50.0 Potassium 3.9 Carbon Dioxide 27 Anion Gap 9 L BUN 13 Creatinine 1.0 Est GFR ( Amer) > 60 Est GFR (Non-Af Amer) 56 POC Glucose (mg/dL) Random Glucose 94 Calcium 8.3 L Phosphorus 3.2 Magnesium 2.0 Total Bilirubin 0.3 AST 20 ALT 19 Alkaline Phosphatase 114 Total Protein 6.0 Albumin 3.0 Globulin 3.0 Albumin/Globulin Ratio 1.0 L Procalcitonin TSH 3rd Generation Arterial Blood Potassium 3.6 Urine Color Urine Appearance Urine pH Ur Specific [place] Urine Protein Urine Glucose (UA) Urine Ketones Urine Blood Urine Nitrate Urine Bilirubin Urine Urobilinogen Ur Leukocyte Esterase Urine RBC Urine WBC Ur Epithelial Cells Amorphous Sediment Urine Bacteria Acetaminophen 07/27/18 07/27/18 07/27/18 06:40 07:33 11:15 WBC RBC Hgb Hct MCV MCH MCHC RDW Plt Count MPV Gran % Lymph % (Auto) [place] % (Auto) Eos % (Auto) Baso % (Auto) Gran # Lymph # (Auto) [place] # (Auto) Eos # (Auto) Baso # (Auto) pCO2 pO2 HCO3 ABG pH ABG Total CO2 ABG O2 Saturation ABG O2 Content ABG Base Excess ABG Hemoglobin ABG Carboxyhemoglobin POC ABG HHb (Measured) ABG Methemoglobin ABG O2 Capacity ABG Potassium Hgb O2 Saturation Sodium Chloride Glucose Lactate FiO2 Potassium Carbon Dioxide Anion Gap BUN Creatinine Est GFR ( Amer) Est GFR (Non-Af Amer) POC Glucose (mg/dL) 93 110 Random Glucose Calcium Phosphorus Magnesium Total Bilirubin AST ALT Alkaline Phosphatase Total Protein Albumin Globulin Albumin/Globulin Ratio Procalcitonin TSH 3rd Generation 0.21 L Arterial Blood Potassium Urine Color Urine Appearance Urine pH Ur Specific [place] Urine Protein Urine Glucose (UA) Urine Ketones Urine Blood Urine Nitrate Urine Bilirubin Urine Urobilinogen Ur Leukocyte Esterase Urine RBC Urine WBC Ur Epithelial Cells Amorphous Sediment Urine Bacteria Acetaminophen Fingerstick Blood Sugar Results: 91 Review of Systems - Review of Systems Systems not reviewed;Unavailable: Altered Mental Status Critical Care Progress Note - Ventilator Checklist Head of Bed 30 Degrees: Yes PUD Prophalyxis: Yes DVT Prophylaxis: Yes - Extremities/Vascular Does the Patient have a Central Venous Catheter?: No Does the Patient need a Central Venous Catheter?: No Does the Patient have a Arauz Catheter?: Yes Assessment/Plan - Assessment and Plan (Free Text) Assessment: 63 year old female with past medical history of obesity, diabetes mellitus type II, HTN, opiod abuse, chronic back pain presents with lethargy, fatigue, AMS as per after overdosing on opiod medication. In ER, narcan was unsuccessful at resolving lethargy. Patient was subsequently intubated due to hypercapnic, hypoxic respiratory failure. Plan: Neuro: -Patient currently AAOx2 and fatigued. -Repeat ABG ordered and patient will be progressed to nasal cannula from BiPap if ABG shows no hypercapneia. -Patient started on precedex drip for agitation/altered mental status -Monitor neuro status. -Reorient patient as necessary. Cardio: -RRR, normotensive, no signs of HD compromise -EKG: sinus tachycardia with HR: 110. -Maintain MAP>65. -Monitor for S/S, HD compromise. Pulm: -Patient is stating 97% on BiPap with setting at 12/6 and on 60% oxygen. -Maintain O2 saturation>95%. -Repeat ABG ordered and patient will be progressed to nasal cannula from BiPap if ABG shows no hypercapneia. -Elevate bed to 30 degrees GI: -Tolerating diet well. -Protonix 40 mg daily /Nephro: -BUN/Cr stable at 13/1.0 -UA: positive for nitrates, leukocyte esterase, 5-10 WBC, 10-12 epithelial cells, small bacteria -Patient started on ceftriaxone for UTI. -Good urine output: 110 this morning -Continue monitoring. -Replete electrolytes as needed. -Maintain euvolemia. Endocrinology: -Random glucose: 94 -Maintain euglycemia. Heme/Onc: -H/H stable at 9.8/32. -No signs of HD compromise. -Continue monitoring H/H ID: -Afebrile, no leukocytosis -Follow up BCx, UCx, Procalcitonin, Lactate -UA: positive for nitrates, leukocyte esterase, 5-10 WBC, 10-12 epithelial cells, small bacteria -CXR: last endotracheal tube before extubation showed no consolidations, effusions, or infiltrates. -Start ceftriaxone day 1 for UTI. -Monitor for signs and symptoms of infection. DVT prophylaxis: lovenox 40 mg daily GI prophylaxis: protonix 40 mg daily Patient plan discussed with Dr. Tran. - Date & Time Date: 07/27/18 Time: 14:35 <Aneudy Tran - Last Filed: 07/27/18 16:21> CCU Objective - Vital Signs / Intake & Output Intake and Output (Last 8hrs): Intake & Output 07/27/18 07/27/18 07/27/18 06:59 14:59 22:59 Intake Total 2376 100 Output Total 1950 Balance 426 100 Weight 185 lb Intake: IV 2376 100 0.9 ns 1800 propofol 276 Output: Urine 1950 Urethral (Arauz) 1950 - Medications Active Medications: Active Medications Generic Name Dose Route Start Last Admin Trade Name Freq PRN Reason Stop Dose Admin Enoxaparin Sodium 40 mg 07/27/18 10:00 07/27/18 10:24 Lovenox SC 40 mg DAILY TOMMIE Administration Protocol Propofol 1,000 mg in 100 mls @ 4.627 mls/hr 07/26/18 13:23 07/27/18 10:25 Diprivan IV Infused .[id number] PRN Titration TITRATE PER MD ORDER Protocol 10 MCG/KG/MIN Dexmedetomidine HCl 400 mcg in 100 mls @ 4.196 mls/hr 07/27/18 10:36 Precedex 400mcg/100ml IV .[id number] PRN Agitation Protocol 0.2 MCG/KG/HR Ceftriaxone Sodium 1 gm in 100 mls @ 100 mls/hr 07/27/18 10:45 07/27/18 13:12 Rocephin 1 Gram Ivpb IVPB 100 mls/hr DAILY TOMMIE Administration Protocol Sodium Chloride 1,000 mls @ 100 mls/hr 07/27/18 12:08 07/27/18 13:19 Sodium Chloride 0.9% IV 100 mls/hr .Q10H TOMMIE Administration Lorazepam 0.5 mg 07/27/18 12:13 Ativan IVP Q6H PRN Anxiety Protocol Naproxen 550 mg 07/27/18 18:00 Anaprox Ds PO BID TOMMIE Ondansetron HCl 4 mg 07/27/18 12:12 Zofran Inj IVP Q6H PRN Nausea/Vomiting Trazodone HCl 100 mg 07/27/18 22:00 Desyrel PO HS TOMMIE - Patient Studies Lab Studies: Lab Studies 07/27/18 07/27/18 07/27/18 Range/Units 14:45 11:15 07:33 WBC (4.5-11.0) 10^3/ul RBC (3.5-6.1) 10^6/uL Hgb (12.0-16.0) g/dL Hct (36.0-48.0) % MCV (80.0-105.0) fl MCH (25.0-35.0) pg MCHC (31.0-37.0) g/dl RDW (11.5-14.5) % Plt Count (120.0-450.0) 10^3/uL MPV (7.0-11.0) fl Gran % (50.0-68.0) % Lymph % (Auto) (22.0-35.0) % [place] % (Auto) (1.0-6.0) % Eos % (Auto) (1.5-5.0) % Baso % (Auto) (0.0-3.0) % Gran # (1.4-6.5) Lymph # (Auto) (1.2-3.4) [place] # (Auto) (0.1-0.6) Eos # (Auto) (0.0-0.7) Baso # (Auto) (0.0-2.0) K/mm3 pCO2 55 H (35-45) mm/Hg pO2 110.0 H (80-100) mm/Hg HCO3 28.3 H (21-28) mmol/L ABG pH 7.32 L (7.35-7.45) ABG Total CO2 30.0 H (22-28) mmol.L ABG O2 Saturation 99.3 H (95-98) % ABG O2 Content 13.6 L (15-23) ML/dl ABG Base Excess 1.5 (-2.0-3.0) mmol/L ABG Hemoglobin 9.9 L (11.7-17.4) g/dL ABG Carboxyhemoglobin 1.9 H (0.5-1.5) % POC ABG HHb (Measured) 0.7 (0-5) % ABG Methemoglobin 1.2 (0.0-3.0) % ABG O2 Capacity 13.7 L (16-24) mL/dl ABG Potassium (3.6-5.2) mmol/L Hgb O2 Saturation 96.2 (95.0-98.0) % Sodium (132-148) mmol/L Chloride (98-107) mmol/L Glucose (65-105) mg/dl Lactate (0.7-2.1) mmol/L FiO2 60.0 % Potassium (3.6-5.0) mmol/L Carbon Dioxide (21-33) mmol/L Anion Gap (10-20) BUN (7-21) mg/dL Creatinine (0.7-1.2) mg/dl Est GFR ( Amer) Est GFR (Non-Af Amer) POC Glucose (mg/dL) 110 93 (65-110) mg/dL Random Glucose (70-110) mg/dL Calcium (8.4-10.5) mg/dL Phosphorus (2.5-4.5) mg/dL Magnesium (1.7-2.2) mg/dL Total Bilirubin (0.2-1.3) mg/dL AST (14-36) U/L ALT (7-56) U/L Alkaline Phosphatase (38-126) U/L Total Protein (5.8-8.3) g/dL Albumin (3.0-4.8) g/dL Globulin gm/dL Albumin/Globulin Ratio (1.1-1.8) Procalcitonin (0.19-0.49) NG/ML TSH 3rd Generation (0.46-4.68) mIU/mL Arterial Blood Potassium (3.6-5.2) mmol/L Urine Color (YELLOW) Urine Appearance (CLEAR) Urine pH (4.7-8.0) Ur Specific [place] (1.005-1.035) Urine Protein (<30 mg/dL) mg/dL Urine Glucose (UA) (NEGATIVE) mg/dL Urine Ketones (NEGATIVE) mg/dL Urine Blood (NEGATIVE) Urine Nitrate (NEGATIVE) Urine Bilirubin (NEGATIVE) Urine Urobilinogen (<1 E.U./dL) E.U./dL Ur Leukocyte Esterase (NEGATIVE) Dennis/uL Urine RBC Urine WBC (0-6) /hpf Ur Epithelial Cells (0-5) /hpf Amorphous Sediment Urine Bacteria (NEG) Acetaminophen (10.0-20.0) ug/ml 07/27/18 07/27/18 07/27/18 Range/Units 06:40 06:40 06:40 WBC 8.7 D (4.5-11.0) 10^3/ul RBC 3.41 L (3.5-6.1) 10^6/uL Hgb 9.8 L (12.0-16.0) g/dL Hct 32.0 L (36.0-48.0) % MCV 93.8 (80.0-105.0) fl MCH 28.7 (25.0-35.0) pg MCHC 30.6 L (31.0-37.0) g/dl RDW 15.0 H (11.5-14.5) % Plt Count 173 (120.0-450.0) 10^3/uL MPV 9.4 (7.0-11.0) fl Gran % 73.8 H (50.0-68.0) % Lymph % (Auto) 17.0 L (22.0-35.0) % [place] % (Auto) 8.6 H (1.0-6.0) % Eos % (Auto) 0.5 L (1.5-5.0) % Baso % (Auto) 0.1 (0.0-3.0) % Gran # 6.45 (1.4-6.5) Lymph # (Auto) 1.5 (1.2-3.4) [place] # (Auto) 0.8 H (0.1-0.6) Eos # (Auto) 0.0 (0.0-0.7) Baso # (Auto) 0.01 (0.0-2.0) K/mm3 pCO2 (35-45) mm/Hg pO2 (80-100) mm/Hg HCO3 (21-28) mmol/L ABG pH (7.35-7.45) ABG Total CO2 (22-28) mmol.L ABG O2 Saturation (95-98) % ABG O2 Content (15-23) ML/dl ABG Base Excess (-2.0-3.0) mmol/L ABG Hemoglobin (11.7-17.4) g/dL ABG Carboxyhemoglobin (0.5-1.5) % POC ABG HHb (Measured) (0-5) % ABG Methemoglobin (0.0-3.0) % ABG O2 Capacity (16-24) mL/dl ABG Potassium (3.6-5.2) mmol/L Hgb O2 Saturation (95.0-98.0) % Sodium 140 (132-148) mmol/L Chloride 108 H (98-107) mmol/L Glucose (65-105) mg/dl Lactate (0.7-2.1) mmol/L FiO2 % Potassium 3.9 (3.6-5.0) mmol/L Carbon Dioxide 27 (21-33) mmol/L Anion Gap 9 L (10-20) BUN 13 (7-21) mg/dL Creatinine 1.0 (0.7-1.2) mg/dl Est GFR ( Amer) > 60 Est GFR (Non-Af Amer) 56 POC Glucose (mg/dL) (65-110) mg/dL Random Glucose 94 (70-110) mg/dL Calcium 8.3 L (8.4-10.5) mg/dL Phosphorus 3.2 (2.5-4.5) mg/dL Magnesium 2.0 (1.7-2.2) mg/dL Total Bilirubin 0.3 (0.2-1.3) mg/dL AST 20 (14-36) U/L ALT 19 (7-56) U/L Alkaline Phosphatase 114 (38-126) U/L Total Protein 6.0 (5.8-8.3) g/dL Albumin 3.0 (3.0-4.8) g/dL Globulin 3.0 gm/dL Albumin/Globulin Ratio 1.0 L (1.1-1.8) Procalcitonin (0.19-0.49) NG/ML TSH 3rd Generation 0.21 L (0.46-4.68) mIU/mL Arterial Blood Potassium (3.6-5.2) mmol/L Urine Color (YELLOW) Urine Appearance (CLEAR) Urine pH (4.7-8.0) Ur Specific [place] (1.005-1.035) Urine Protein (<30 mg/dL) mg/dL Urine Glucose (UA) (NEGATIVE) mg/dL Urine Ketones (NEGATIVE) mg/dL Urine Blood (NEGATIVE) Urine Nitrate (NEGATIVE) Urine Bilirubin (NEGATIVE) Urine Urobilinogen (<1 E.U./dL) E.U./dL Ur Leukocyte Esterase (NEGATIVE) Dennis/uL Urine RBC Urine WBC (0-6) /hpf Ur Epithelial Cells (0-5) /hpf Amorphous Sediment Urine Bacteria (NEG) Acetaminophen (10.0-20.0) ug/ml 07/27/18 07/26/18 07/26/18 Range/Units 05:05 22:01 19:30 WBC (4.5-11.0) 10^3/ul RBC (3.5-6.1) 10^6/uL Hgb (12.0-16.0) g/dL Hct (36.0-48.0) % MCV (80.0-105.0) fl MCH (25.0-35.0) pg MCHC (31.0-37.0) g/dl RDW (11.5-14.5) % Plt Count (120.0-450.0) 10^3/uL MPV (7.0-11.0) fl Gran % (50.0-68.0) % Lymph % (Auto) (22.0-35.0) % [place] % (Auto) (1.0-6.0) % Eos % (Auto) (1.5-5.0) % Baso % (Auto) (0.0-3.0) % Gran # (1.4-6.5) Lymph # (Auto) (1.2-3.4) [place] # (Auto) (0.1-0.6) Eos # (Auto) (0.0-0.7) Baso # (Auto) (0.0-2.0) K/mm3 pCO2 55 H (35-45) mm/Hg pO2 67.0 L (80-100) mm/Hg HCO3 27.7 (21-28) mmol/L ABG pH 7.31 L (7.35-7.45) ABG Total CO2 29.4 H (22-28) mmol.L ABG O2 Saturation 96.0 (95-98) % ABG O2 Content (15-23) ML/dl ABG Base Excess 0.4 (-2.0-3.0) mmol/L ABG Hemoglobin (11.7-17.4) g/dL ABG Carboxyhemoglobin (0.5-1.5) % POC ABG HHb (Measured) (0-5) % ABG Methemoglobin (0.0-3.0) % ABG O2 Capacity (16-24) mL/dl ABG Potassium 3.6 (3.6-5.2) mmol/L Hgb O2 Saturation (95.0-98.0) % Sodium 141.0 (132-148) mmol/L Chloride 113.0 H (98-107) mmol/L Glucose 89 (65-105) mg/dl Lactate 0.5 L (0.7-2.1) mmol/L FiO2 50.0 % Potassium (3.6-5.0) mmol/L Carbon Dioxide (21-33) mmol/L Anion Gap (10-20) BUN (7-21) mg/dL Creatinine (0.7-1.2) mg/dl Est GFR ( Amer) Est GFR (Non-Af Amer) POC Glucose (mg/dL) 91 (65-110) mg/dL Random Glucose (70-110) mg/dL Calcium (8.4-10.5) mg/dL Phosphorus (2.5-4.5) mg/dL Magnesium (1.7-2.2) mg/dL Total Bilirubin (0.2-1.3) mg/dL AST (14-36) U/L ALT (7-56) U/L Alkaline Phosphatase (38-126) U/L Total Protein (5.8-8.3) g/dL Albumin (3.0-4.8) g/dL Globulin gm/dL Albumin/Globulin Ratio (1.1-1.8) Procalcitonin (0.19-0.49) NG/ML TSH 3rd Generation (0.46-4.68) mIU/mL Arterial Blood Potassium 3.6 (3.6-5.2) mmol/L Urine Color yellow (YELLOW) Urine Appearance Clear (CLEAR) Urine pH 6.0 (4.7-8.0) Ur Specific [place] 1.015 (1.005-1.035) Urine Protein Negative (<30 mg/dL) mg/dL Urine Glucose (UA) Negative (NEGATIVE) mg/dL Urine Ketones Negative (NEGATIVE) mg/dL Urine Blood Negative (NEGATIVE) Urine Nitrate Positive H (NEGATIVE) Urine Bilirubin Negative (NEGATIVE) Urine Urobilinogen 0.2 (<1 E.U./dL) E.U./dL Ur Leukocyte Esterase Trace H (NEGATIVE) Dennis/uL Urine RBC TEST NOT PERFORMED Urine WBC 5 - 10 (0-6) /hpf Ur Epithelial Cells 10 - 12 (0-5) /hpf Amorphous Sediment Small Urine Bacteria Small (NEG) Acetaminophen (10.0-20.0) ug/ml 07/26/18 07/26/18 07/26/18 Range/Units 16:30 11:42 11:42 WBC (4.5-11.0) 10^3/ul RBC (3.5-6.1) 10^6/uL Hgb (12.0-16.0) g/dL Hct (36.0-48.0) % MCV (80.0-105.0) fl MCH (25.0-35.0) pg MCHC (31.0-37.0) g/dl RDW (11.5-14.5) % Plt Count (120.0-450.0) 10^3/uL MPV (7.0-11.0) fl Gran % (50.0-68.0) % Lymph % (Auto) (22.0-35.0) % [place] % (Auto) (1.0-6.0) % Eos % (Auto) (1.5-5.0) % Baso % (Auto) (0.0-3.0) % Gran # (1.4-6.5) Lymph # (Auto) (1.2-3.4) [place] # (Auto) (0.1-0.6) Eos # (Auto) (0.0-0.7) Baso # (Auto) (0.0-2.0) K/mm3 pCO2 62 H (35-45) mm/Hg pO2 203.0 H (80-100) mm/Hg HCO3 27.8 (21-28) mmol/L ABG pH 7.26 L (7.35-7.45) ABG Total CO2 29.7 H (22-28) mmol.L ABG O2 Saturation 99.9 H (95-98) % ABG O2 Content 14.0 L (15-23) ML/dl ABG Base Excess -0.1 (-2.0-3.0) mmol/L ABG Hemoglobin 10.0 L (11.7-17.4) g/dL ABG Carboxyhemoglobin 2.9 H (0.5-1.5) % POC ABG HHb (Measured) 0.1 (0-5) % ABG Methemoglobin 0.9 (0.0-3.0) % ABG O2 Capacity 14.0 L (16-24) mL/dl ABG Potassium (3.6-5.2) mmol/L Hgb O2 Saturation 96.1 (95.0-98.0) % Sodium (132-148) mmol/L Chloride (98-107) mmol/L Glucose (65-105) mg/dl Lactate (0.7-2.1) mmol/L FiO2 100.0 % Potassium (3.6-5.0) mmol/L Carbon Dioxide (21-33) mmol/L Anion Gap (10-20) BUN (7-21) mg/dL Creatinine (0.7-1.2) mg/dl Est GFR ( Amer) Est GFR (Non-Af Amer) POC Glucose (mg/dL) (65-110) mg/dL Random Glucose (70-110) mg/dL Calcium (8.4-10.5) mg/dL Phosphorus (2.5-4.5) mg/dL Magnesium (1.7-2.2) mg/dL Total Bilirubin (0.2-1.3) mg/dL AST (14-36) U/L ALT (7-56) U/L Alkaline Phosphatase (38-126) U/L Total Protein (5.8-8.3) g/dL Albumin (3.0-4.8) g/dL Globulin gm/dL Albumin/Globulin Ratio (1.1-1.8) Procalcitonin < 0.05 L (0.19-0.49) NG/ML TSH 3rd Generation (0.46-4.68) mIU/mL Arterial Blood Potassium (3.6-5.2) mmol/L Urine Color (YELLOW) Urine Appearance (CLEAR) Urine pH (4.7-8.0) Ur Specific [place] (1.005-1.035) Urine Protein (<30 mg/dL) mg/dL Urine Glucose (UA) (NEGATIVE) mg/dL Urine Ketones (NEGATIVE) mg/dL Urine Blood (NEGATIVE) Urine Nitrate (NEGATIVE) Urine Bilirubin (NEGATIVE) Urine Urobilinogen (<1 E.U./dL) E.U./dL Ur Leukocyte Esterase (NEGATIVE) Dennis/uL Urine RBC Urine WBC (0-6) /hpf Ur Epithelial Cells (0-5) /hpf Amorphous Sediment Urine Bacteria (NEG) Acetaminophen < 10.0 L (10.0-20.0) ug/ml Laboratory Results - last 24 hr 07/26/18 07/26/18 07/26/18 11:42 11:42 16:30 WBC RBC Hgb Hct MCV MCH MCHC RDW Plt Count MPV Gran % Lymph % (Auto) [place] % (Auto) Eos % (Auto) Baso % (Auto) Gran # Lymph # (Auto) [place] # (Auto) Eos # (Auto) Baso # (Auto) pCO2 62 H pO2 203.0 H HCO3 27.8 ABG pH 7.26 L ABG Total CO2 29.7 H ABG O2 Saturation 99.9 H ABG O2 Content 14.0 L ABG Base Excess -0.1 ABG Hemoglobin 10.0 L ABG Carboxyhemoglobin 2.9 H POC ABG HHb (Measured) 0.1 ABG Methemoglobin 0.9 ABG O2 Capacity 14.0 L ABG Potassium Hgb O2 Saturation 96.1 Sodium Chloride Glucose Lactate FiO2 100.0 Potassium Carbon Dioxide Anion Gap BUN Creatinine Est GFR ( Amer) Est GFR (Non-Af Amer) POC Glucose (mg/dL) Random Glucose Calcium Phosphorus Magnesium Total Bilirubin AST ALT Alkaline Phosphatase Total Protein Albumin Globulin Albumin/Globulin Ratio Procalcitonin < 0.05 L TSH 3rd Generation Arterial Blood Potassium Urine Color Urine Appearance Urine pH Ur Specific [place] Urine Protein Urine Glucose (UA) Urine Ketones Urine Blood Urine Nitrate Urine Bilirubin Urine Urobilinogen Ur Leukocyte Esterase Urine RBC Urine WBC Ur Epithelial Cells Amorphous Sediment Urine Bacteria Acetaminophen < 10.0 L 07/26/18 07/26/18 07/27/18 19:30 22:01 05:05 WBC RBC Hgb Hct MCV MCH MCHC RDW Plt Count MPV Gran % Lymph % (Auto) [place] % (Auto) Eos % (Auto) Baso % (Auto) Gran # Lymph # (Auto) [place] # (Auto) Eos # (Auto) Baso # (Auto) pCO2 55 H pO2 67.0 L HCO3 27.7 ABG pH 7.31 L ABG Total CO2 29.4 H ABG O2 Saturation 96.0 ABG O2 Content ABG Base Excess 0.4 ABG Hemoglobin ABG Carboxyhemoglobin POC ABG HHb (Measured) ABG Methemoglobin ABG O2 Capacity ABG Potassium 3.6 Hgb O2 Saturation Sodium 141.0 Chloride 113.0 H Glucose 89 Lactate 0.5 L FiO2 50.0 Potassium Carbon Dioxide Anion Gap BUN Creatinine Est GFR ( Amer) Est GFR (Non-Af Amer) POC Glucose (mg/dL) 91 Random Glucose Calcium Phosphorus Magnesium Total Bilirubin AST ALT Alkaline Phosphatase Total Protein Albumin Globulin Albumin/Globulin Ratio Procalcitonin TSH 3rd Generation Arterial Blood Potassium 3.6 Urine Color yellow Urine Appearance Clear Urine pH 6.0 Ur Specific [place] 1.015 Urine Protein Negative Urine Glucose (UA) Negative Urine Ketones Negative Urine Blood Negative Urine Nitrate Positive H Urine Bilirubin Negative Urine Urobilinogen 0.2 Ur Leukocyte Esterase Trace H Urine RBC TEST NOT PERFORMED Urine WBC 5 - 10 Ur Epithelial Cells 10 - 12 Amorphous Sediment Small Urine Bacteria Small Acetaminophen 07/27/18 07/27/18 07/27/18 06:40 06:40 06:40 WBC 8.7 D RBC 3.41 L Hgb 9.8 L Hct 32.0 L MCV 93.8 MCH 28.7 MCHC 30.6 L RDW 15.0 H Plt Count 173 MPV 9.4 Gran % 73.8 H Lymph % (Auto) 17.0 L [place] % (Auto) 8.6 H Eos % (Auto) 0.5 L Baso % (Auto) 0.1 Gran # 6.45 Lymph # (Auto) 1.5 [place] # (Auto) 0.8 H Eos # (Auto) 0.0 Baso # (Auto) 0.01 pCO2 pO2 HCO3 ABG pH ABG Total CO2 ABG O2 Saturation ABG O2 Content ABG Base Excess ABG Hemoglobin ABG Carboxyhemoglobin POC ABG HHb (Measured) ABG Methemoglobin ABG O2 Capacity ABG Potassium Hgb O2 Saturation Sodium 140 Chloride 108 H Glucose Lactate FiO2 Potassium 3.9 Carbon Dioxide 27 Anion Gap 9 L BUN 13 Creatinine 1.0 Est GFR ( Amer) > 60 Est GFR (Non-Af Amer) 56 POC Glucose (mg/dL) Random Glucose 94 Calcium 8.3 L Phosphorus 3.2 Magnesium 2.0 Total Bilirubin 0.3 AST 20 ALT 19 Alkaline Phosphatase 114 Total Protein 6.0 Albumin 3.0 Globulin 3.0 Albumin/Globulin Ratio 1.0 L Procalcitonin TSH 3rd Generation 0.21 L Arterial Blood Potassium Urine Color Urine Appearance Urine pH Ur Specific [place] Urine Protein Urine Glucose (UA) Urine Ketones Urine Blood Urine Nitrate Urine Bilirubin Urine Urobilinogen Ur Leukocyte Esterase Urine RBC Urine WBC Ur Epithelial Cells Amorphous Sediment Urine Bacteria Acetaminophen 07/27/18 07/27/18 07/27/18 07:33 11:15 14:45 WBC RBC Hgb Hct MCV MCH MCHC RDW Plt Count MPV Gran % Lymph % (Auto) [place] % (Auto) Eos % (Auto) Baso % (Auto) Gran # Lymph # (Auto) [place] # (Auto) Eos # (Auto) Baso # (Auto) pCO2 55 H pO2 110.0 H HCO3 28.3 H ABG pH 7.32 L ABG Total CO2 30.0 H ABG O2 Saturation 99.3 H ABG O2 Content 13.6 L ABG Base Excess 1.5 ABG Hemoglobin 9.9 L ABG Carboxyhemoglobin 1.9 H POC ABG HHb (Measured) 0.7 ABG Methemoglobin 1.2 ABG O2 Capacity 13.7 L ABG Potassium Hgb O2 Saturation 96.2 Sodium Chloride Glucose Lactate FiO2 60.0 Potassium Carbon Dioxide Anion Gap BUN Creatinine Est GFR ( Amer) Est GFR (Non-Af Amer) POC Glucose (mg/dL) 93 110 Random Glucose Calcium Phosphorus Magnesium Total Bilirubin AST ALT Alkaline Phosphatase Total Protein Albumin Globulin Albumin/Globulin Ratio Procalcitonin TSH 3rd Generation Arterial Blood Potassium Urine Color Urine Appearance Urine pH Ur Specific [place] Urine Protein Urine Glucose (UA) Urine Ketones Urine Blood Urine Nitrate Urine Bilirubin Urine Urobilinogen Ur Leukocyte Esterase Urine RBC Urine WBC Ur Epithelial Cells Amorphous Sediment Urine Bacteria Acetaminophen Attending/Attestation - Attestation I have personally seen and examined this patient.: Yes I have fully participated in the care of the patient.: Yes I have reviewed all pertinent clinical information: Yes Notes (Text): 07/27/18 16:[address] Tran note
[2018-07-27 14:54] LABS: ARTERIAL BLOOD GAS HCO3 28.3 mmol/L (21-28); ARTERIAL BLOOD GAS HEMOGLOBIN 9.9 g/dL (11.7-17.4); ARTERIAL BLOOD GAS O2 CAPACITY 13.7 mL/dl (16-24); ARTERIAL BLOOD GAS O2 CONTENT 13.6 ML/dl (15-23); ARTERIAL BLOOD GAS O2 SAT 99.3 % (95-98); ARTERIAL BLOOD GAS PCO2 55 mm/Hg (35-45); ARTERIAL BLOOD GAS PH 7.32 (7.35-7.45)
[2018-07-27] MEDS: Naproxen 550 mg Tab PO SCH (17:41)
--- NOTE | 2018-07-27 18:14 | PQF ---
PROVIDER RESPONSE TEXT: Hypercapnic respiratory failure REVIEWER QUERY TEXT: Respiratory Failure Acuity and Type Respiratory Failure is documented in the Medical Record. Please specify the type and acuity (includes suspected or probable) Such as: -- Acute respiratory failure - With hypoxia - With hypercapnia -- Chronic respiratory failure - With hypoxia - With hypercapnia -- Acute on chronic respiratory failure - With hypoxia - With hypercapnia -- Other, please specify The patient's Clinical Indicators include: Admitted w/ multidrug OD, respiratory status required intubation for hypercapnic resp failure. Please document acuity of failure POA Query created by: Joanie Badillo on 07/27/2018 1:51 PM Electronically signed by: Aneudy Tran MD 07/27/2018 6:11 PM
--- NOTE | 2018-07-27 22:58 | HP ---
HISTORY OF PRESENT ILLNESS: Patient is 63 years old, seen and examined, intubated in ICU. Unable to get any history. Got information from ER physician's note and from talking to dx board operator. Apparently patient is 63-year-old with history of [id number] diabetes, hypertension, chronic back pain and has been on opioids for chronic back pain. According to 's statement, he found her confused, disoriented, and she became increasingly fatigued, lethargic, and was not responding, so he called ambulance and she was brought to emergency room. She was given Narcan in the ER but with no significant improvement. Because of her altered mental status, patient was intubated in the ER and brought to emergency room for further management. PAST MEDICAL HISTORY: She has significant past medical history of ofa-[id number] diabetes, hypertension, hyperlipidemia, chronic back pain, on opioids. ALLERGIES: SHE IS NOT ALLERGIC TO ANY MEDICATIONS. MEDICATIONS AT HOME: She is on Xanax 1 mg twice a day, Janumet 100/1000, oxycodone 30 mg four times a day, MS Contin 60 mg four times a day, glipizide 5 mg twice a day. SOCIAL HISTORY: Patient is , lives with her . She recently lost her son and she was increasingly depressed because of that. She was heavy smoker in the past, but quit recently. PHYSICAL EXAMINATION: GENERAL: She is intubated, sedated. VITAL SIGNS: She afebrile, pulse 82, respirations 20, blood pressure 138/82. LUNGS: Bilateral good airflow. No rhonchi or crackle. HEART: S1 and S2 audible, tachycardic. ABDOMEN: Soft, obese, nontender. No rebound. No guarding. NEUROLOGICAL: The patient is sleepy, but respond to painful stimuli. LABORATORY DATA: WBC 8.7, hemoglobin 9.8, hematocrit 32, platelets of 173. Chemistry: Sodium 140, potassium 3.9, chloride 108, CO2 of 27, BUN 13, creatinine 1, blood sugar of 56. Urine positive for opiates, methadone, and benzodiazepine. X-ray chest shows endotracheal tube in place at the level of clavicle. ASSESSMENT: 1. Status post multidrug overdose. 2. Opioid dependence. 3. Anxiety disorder. 4. Hypertension. 5. Hyperlipidemia. 6. Pms-znhnpgf-[id number] diabetes. PLAN: Discussed with dx board operator. Patient is being tapered down and possibly will be extubated later on today. We will monitor her blood sugar and we will get psych consult by Dr. Ardon and start her on Naprosyn and Protonix. We will start out of bed to chair when she is extubated. Start her on trazodone over nighttime. Follow up her electrolytes in a.m. Teri Le MD
[2018-07-28] MEDS: Sodium Chloride 0.9% 1,000 ML IV SCH ×2 (00:57→16:10)
[2018-07-28 03:23] LABS: ARTERIAL BLOOD GAS HCO3 28.4 mmol/L (21-28); ARTERIAL BLOOD GAS HEMOGLOBIN 9.9 g/dL (11.7-17.4); ARTERIAL BLOOD GAS O2 CAPACITY 13.7 mL/dl (16-24); ARTERIAL BLOOD GAS O2 CONTENT 13.4 ML/dl (15-23); ARTERIAL BLOOD GAS O2 SAT 98.1 % (95-98); ARTERIAL BLOOD GAS PCO2 48 mm/Hg (35-45); ARTERIAL BLOOD GAS PH 7.38 (7.35-7.45); ARTERIAL BLOOD GAS TCO2 29.9 mmol.L (22-28)
[2018-07-28] MEDS ORDERED: Nitroglycerin 2% Ointment Foilpak UD TOP ONE (05:30)
[2018-07-28 07:09] LABS: BASO # 0.03 K/mm3 (0.0-2.0); BASO % 0.3 % (0.0-3.0); EOS % 0.3 % (1.5-5.0); GRAN # 7.36 (1.4-6.5); GRAN % 79.2 % (50.0-68.0); HEMOGLOBIN 10.3 g/dL (12.0-16.0); LYMPH # 1.4 (1.2-3.4); LYMPH % 14.7 % (22.0-35.0); MEAN CORPUSCULAR HEMOGLOBIN 27.9 pg (25.0-35.0); MEAN CORPUSCULAR HGB CONC 31.1 g/dl (31.0-37.0); MEAN PLATELET VOLUME 9.6 fl (7.0-11.0); MONO # 0.5 (0.1-0.6); MONO % 5.5 % (1.0-6.0); RBC 3.69 10^6/uL (3.5-6.1); RED CELL DISTRIBUTION WIDTH 14.4 % (11.5-14.5); WHITE BLOOD COUNT 9.3 10^3/ul (4.5-11.0)
[2018-07-28 07:13] LABS: MEAN CELL VOLUME 89.7 fl (80.0-105.0)
[2018-07-28 07:15] LABS: ALBUMIN 3.5 g/dL (3.0-4.8); ALT/SGPT 18 U/L (7-56); AST/SGOT 21 U/L (14-36); BLOOD UREA NITROGEN 10 mg/dL (7-21); CALCIUM 8.9 mg/dL (8.4-10.5); GFR NON-AFRICAN AMERICAN 56
--- NOTE | 2018-07-28 09:08 | RAD ---
Date of service: 07/28/2018 HISTORY: intubated COMPARISON: 07/27/2018. FINDINGS: LUNGS: The lungs are well inflated and clear. PLEURA: No significant pleural effusion identified, no pneumothorax apparent. CARDIOVASCULAR: Normal. OSSEOUS STRUCTURES: No significant abnormalities. Status post ACDF in the lower cervical spine. VISUALIZED UPPER ABDOMEN: Normal. OTHER FINDINGS: None. IMPRESSION: No acute findings.
[2018-07-28] MEDS: Enoxaparin 40 mg Syringe SC SCH (09:57)
[2018-07-28] MEDS: Naproxen 550 mg Tab PO SCH ×2 (09:57→17:21)
[2018-07-28] MEDS: cefTRIAXone 1 gm 1 GM/100 ML BAG IVPB SCH (09:57)
--- NOTE | 2018-07-28 13:07 | CP.CCUPN ---
<Mykel Hilliard - Last Filed: 07/28/18 13:07> CCU Subjective - Physician Review Subjective (Free Text): Mykel Hilliard, PGY-1, CCU Progress Note for Dr. Tran Patient seen and examined at bedside. Patient taken off BiPap due to ABG showing improvement in hypercapneia. Patient is not in acute distress and is AAOx2. 12- point ROS was unattainable due to patient's mental status. CCU Objective - Vital Signs / Intake & Output Vital Signs (Last 4 hours): Vital Signs Pulse Resp BP Pulse Ox 07/28/18 11:20 100 H 21 98 07/28/18 11:10 103 H 19 98 07/28/18 11:00 156/96 H 07/28/18 10:59 100 H 18 98 07/28/18 10:50 121 H 19 98 07/28/18 10:40 98 H 18 98 07/28/18 10:30 96 H 23 98 07/28/18 10:20 98 H 21 98 07/28/18 10:10 98 H 22 98 07/28/18 10:00 98 H 22 168/83 H 97 07/28/18 09:50 100 H 21 97 07/28/18 09:40 113 H 19 98 07/28/18 09:30 106 H 25 H 97 07/28/18 09:20 102 H 22 98 07/28/18 09:10 104 H 28 H 98 Intake and Output (Last 8hrs): Intake & Output 07/27/18 07/28/18 07/28/18 22:59 06:59 14:59 Intake Total 1250 100 Output Total 1750 1700 Balance -500 -1600 Weight 183 lb 8 oz Intake: IV 1250 0.9 ns 1200 propofol 50 Oral 0 100 Output: Urine 1750 1700 Urethral (Arauz) 1750 1700 Other: # Bowel Movements 0 - Physical Exam Head: Positive for: Atraumatic, Normocephalic Pupils: Positive for: PERRL Extroacular Muscles: Positive for: EOMI Conjunctiva: Positive for: Normal Nose (External): Positive for: Atraumatic Respiratory/Chest: Positive for: Clear to Auscultation Cardiovascular: Positive for: Regular Rate and Rhythm Abdomen: Negative for: Tenderness, Distention, Peritoneal Signs, Rebound, Guarding Upper Extremity: Positive for: Normal Inspection, NORMAL PULSES Lower Extremity: Positive for: Normal Inspection, NORMAL PULSES. Negative for: CALF TENDERNESS Neurological: Positive for: GCS=15, CN II-XII Intact (grossly) Skin: Positive for: Warm, Dry, Normal Color Psychiatric: Positive for: Alert. Negative for: Normal Insight, Normal Concentration - Medications Active Medications: Active Medications Generic Name Dose Route Start Last Admin Trade Name Freq PRN Reason Stop Dose Admin Enoxaparin Sodium 40 mg 07/27/18 10:00 07/28/18 09:57 Lovenox SC 40 mg DAILY TOMMIE Administration Protocol Propofol 1,000 mg in 100 mls @ 4.627 mls/hr 07/26/18 13:23 07/27/18 10:25 Diprivan IV Infused .[id number] PRN Titration TITRATE PER MD ORDER Protocol 10 MCG/KG/MIN Dexmedetomidine HCl 400 mcg in 100 mls @ 4.196 mls/hr 07/27/18 10:36 Precedex 400mcg/100ml IV .[id number] PRN Agitation Protocol 0.2 MCG/KG/HR Ceftriaxone Sodium 1 gm in 100 mls @ 100 mls/hr 07/27/18 10:45 07/28/18 09:57 Rocephin 1 Gram Ivpb IVPB 100 mls/hr DAILY TOMMIE Administration Protocol Sodium Chloride 1,000 mls @ 100 mls/hr 07/27/18 12:08 07/28/18 00:57 Sodium Chloride 0.9% IV 100 mls/hr .Q10H TOMMIE Administration Lorazepam 0.5 mg 07/27/18 12:13 07/27/18 21:28 Ativan IVP 0.5 mg Q6H PRN Administration Anxiety Protocol Naproxen 550 mg 07/27/18 18:00 07/28/18 09:57 Anaprox Ds PO Not Given BID TOMMIE Ondansetron HCl 4 mg 07/27/18 12:12 Zofran Inj IVP Q6H PRN Nausea/Vomiting Trazodone HCl 100 mg 07/27/18 22:00 07/27/18 21:28 Desyrel PO 100 mg HS TOMMIE Administration - Patient Studies Lab Studies: Microbiology Studies 07/27/18 12:30 Blood Culture - Preliminary Blood-Venous NO GROWTH AFTER 24 HOURS 07/26/18 20:30 Blood Culture - Preliminary Blood-Venous NO GROWTH AFTER 24 HOURS 07/26/18 20:00 Blood Culture - Preliminary Blood-Venous NO GROWTH AFTER 24 HOURS Lab Studies 07/28/18 07/28/18 07/28/18 Range/Units 11:29 05:40 05:40 WBC 9.3 (4.5-11.0) 10^3/ul RBC 3.69 (3.5-6.1) 10^6/uL Hgb 10.3 L (12.0-16.0) g/dL Hct 33.1 L (36.0-48.0) % MCV 89.7 D (80.0-105.0) fl MCH 27.9 (25.0-35.0) pg MCHC 31.1 (31.0-37.0) g/dl RDW 14.4 (11.5-14.5) % Plt Count 224 (120.0-450.0) 10^3/uL MPV 9.6 (7.0-11.0) fl Gran % 79.2 H (50.0-68.0) % Lymph % (Auto) 14.7 L (22.0-35.0) % [place] % (Auto) 5.5 (1.0-6.0) % Eos % (Auto) 0.3 L (1.5-5.0) % Baso % (Auto) 0.3 (0.0-3.0) % Gran # 7.36 H (1.4-6.5) Lymph # (Auto) 1.4 (1.2-3.4) [place] # (Auto) 0.5 (0.1-0.6) Eos # (Auto) 0.0 (0.0-0.7) Baso # (Auto) 0.03 (0.0-2.0) K/mm3 pCO2 (35-45) mm/Hg pO2 (80-100) mm/Hg HCO3 (21-28) mmol/L ABG pH (7.35-7.45) ABG Total CO2 (22-28) mmol.L ABG O2 Saturation (95-98) % ABG O2 Content (15-23) ML/dl ABG Base Excess (-2.0-3.0) mmol/L ABG Hemoglobin (11.7-17.4) g/dL ABG Carboxyhemoglobin (0.5-1.5) % POC ABG HHb (Measured) (0-5) % ABG Methemoglobin (0.0-3.0) % ABG O2 Capacity (16-24) mL/dl Hgb O2 Saturation (95.0-98.0) % FiO2 % Sodium 141 (132-148) mmol/L Potassium 3.5 L (3.6-5.0) mmol/L Chloride 106 (98-107) mmol/L Carbon Dioxide 26 (21-33) mmol/L Anion Gap 13 (10-20) BUN 10 (7-21) mg/dL Creatinine 1.0 (0.7-1.2) mg/dl Est GFR ( Amer) > 60 Est GFR (Non-Af Amer) 56 POC Glucose (mg/dL) 153 H (65-110) mg/dL Random Glucose 116 H (70-110) mg/dL Calcium 8.9 (8.4-10.5) mg/dL Phosphorus 2.7 (2.5-4.5) mg/dL Magnesium 1.7 (1.7-2.2) mg/dL Total Bilirubin 0.6 (0.2-1.3) mg/dL AST 21 (14-36) U/L ALT 18 (7-56) U/L Alkaline Phosphatase 131 H (38-126) U/L Total Protein 6.9 (5.8-8.3) g/dL Albumin 3.5 (3.0-4.8) g/dL Globulin 3.4 gm/dL Albumin/Globulin Ratio 1.0 L (1.1-1.8) 07/28/18 07/28/18 07/27/18 Range/Units 05:37 03:15 16:24 WBC (4.5-11.0) 10^3/ul RBC (3.5-6.1) 10^6/uL Hgb (12.0-16.0) g/dL Hct (36.0-48.0) % MCV (80.0-105.0) fl MCH (25.0-35.0) pg MCHC (31.0-37.0) g/dl RDW (11.5-14.5) % Plt Count (120.0-450.0) 10^3/uL MPV (7.0-11.0) fl Gran % (50.0-68.0) % Lymph % (Auto) (22.0-35.0) % [place] % (Auto) (1.0-6.0) % Eos % (Auto) (1.5-5.0) % Baso % (Auto) (0.0-3.0) % Gran # (1.4-6.5) Lymph # (Auto) (1.2-3.4) [place] # (Auto) (0.1-0.6) Eos # (Auto) (0.0-0.7) Baso # (Auto) (0.0-2.0) K/mm3 pCO2 48 H (35-45) mm/Hg pO2 80.0 (80-100) mm/Hg HCO3 28.4 H (21-28) mmol/L ABG pH 7.38 (7.35-7.45) ABG Total CO2 29.9 H (22-28) mmol.L ABG O2 Saturation 98.1 H (95-98) % ABG O2 Content 13.4 L (15-23) ML/dl ABG Base Excess 2.7 (-2.0-3.0) mmol/L ABG Hemoglobin 9.9 L (11.7-17.4) g/dL ABG Carboxyhemoglobin 2.0 H (0.5-1.5) % POC ABG HHb (Measured) 1.8 (0-5) % ABG Methemoglobin 1.0 (0.0-3.0) % ABG O2 Capacity 13.7 L (16-24) mL/dl Hgb O2 Saturation 95.2 (95.0-98.0) % FiO2 28.0 % Sodium (132-148) mmol/L Potassium (3.6-5.0) mmol/L Chloride (98-107) mmol/L Carbon Dioxide (21-33) mmol/L Anion Gap (10-20) BUN (7-21) mg/dL Creatinine (0.7-1.2) mg/dl Est GFR ( Amer) Est GFR (Non-Af Amer) POC Glucose (mg/dL) 91 128 H (65-110) mg/dL Random Glucose (70-110) mg/dL Calcium (8.4-10.5) mg/dL Phosphorus (2.5-4.5) mg/dL Magnesium (1.7-2.2) mg/dL Total Bilirubin (0.2-1.3) mg/dL AST (14-36) U/L ALT (7-56) U/L Alkaline Phosphatase (38-126) U/L Total Protein (5.8-8.3) g/dL Albumin (3.0-4.8) g/dL Globulin gm/dL Albumin/Globulin Ratio (1.1-1.8) 07/27/18 Range/Units 14:45 WBC (4.5-11.0) 10^3/ul RBC (3.5-6.1) 10^6/uL Hgb (12.0-16.0) g/dL Hct (36.0-48.0) % MCV (80.0-105.0) fl MCH (25.0-35.0) pg MCHC (31.0-37.0) g/dl RDW (11.5-14.5) % Plt Count (120.0-450.0) 10^3/uL MPV (7.0-11.0) fl Gran % (50.0-68.0) % Lymph % (Auto) (22.0-35.0) % [place] % (Auto) (1.0-6.0) % Eos % (Auto) (1.5-5.0) % Baso % (Auto) (0.0-3.0) % Gran # (1.4-6.5) Lymph # (Auto) (1.2-3.4) [place] # (Auto) (0.1-0.6) Eos # (Auto) (0.0-0.7) Baso # (Auto) (0.0-2.0) K/mm3 pCO2 55 H (35-45) mm/Hg pO2 110.0 H (80-100) mm/Hg HCO3 28.3 H (21-28) mmol/L ABG pH 7.32 L (7.35-7.45) ABG Total CO2 30.0 H (22-28) mmol.L ABG O2 Saturation 99.3 H (95-98) % ABG O2 Content 13.6 L (15-23) ML/dl ABG Base Excess 1.5 (-2.0-3.0) mmol/L ABG Hemoglobin 9.9 L (11.7-17.4) g/dL ABG Carboxyhemoglobin 1.9 H (0.5-1.5) % POC ABG HHb (Measured) 0.7 (0-5) % ABG Methemoglobin 1.2 (0.0-3.0) % ABG O2 Capacity 13.7 L (16-24) mL/dl Hgb O2 Saturation 96.2 (95.0-98.0) % FiO2 60.0 % Sodium (132-148) mmol/L Potassium (3.6-5.0) mmol/L Chloride (98-107) mmol/L Carbon Dioxide (21-33) mmol/L Anion Gap (10-20) BUN (7-21) mg/dL Creatinine (0.7-1.2) mg/dl Est GFR ( Amer) Est GFR (Non-Af Amer) POC Glucose (mg/dL) (65-110) mg/dL Random Glucose (70-110) mg/dL Calcium (8.4-10.5) mg/dL Phosphorus (2.5-4.5) mg/dL Magnesium (1.7-2.2) mg/dL Total Bilirubin (0.2-1.3) mg/dL AST (14-36) U/L ALT (7-56) U/L Alkaline Phosphatase (38-126) U/L Total Protein (5.8-8.3) g/dL Albumin (3.0-4.8) g/dL Globulin gm/dL Albumin/Globulin Ratio (1.1-1.8) Laboratory Results - last 24 hr 07/27/18 07/27/18 07/28/18 14:45 16:24 03:15 WBC RBC Hgb Hct MCV MCH MCHC RDW Plt Count MPV Gran % Lymph % (Auto) [place] % (Auto) Eos % (Auto) Baso % (Auto) Gran # Lymph # (Auto) [place] # (Auto) Eos # (Auto) Baso # (Auto) pCO2 55 H 48 H pO2 110.0 H 80.0 HCO3 28.3 H 28.4 H ABG pH 7.32 L 7.38 ABG Total CO2 30.0 H 29.9 H ABG O2 Saturation 99.3 H 98.1 H ABG O2 Content 13.6 L 13.4 L ABG Base Excess 1.5 2.7 ABG Hemoglobin 9.9 L 9.9 L ABG Carboxyhemoglobin 1.9 H 2.0 H POC ABG HHb (Measured) 0.7 1.8 ABG Methemoglobin 1.2 1.0 ABG O2 Capacity 13.7 L 13.7 L Hgb O2 Saturation 96.2 95.2 FiO2 60.0 28.0 Sodium Potassium Chloride Carbon Dioxide Anion Gap BUN Creatinine Est GFR ( Amer) Est GFR (Non-Af Amer) POC Glucose (mg/dL) 128 H Random Glucose Calcium Phosphorus Magnesium Total Bilirubin AST ALT Alkaline Phosphatase Total Protein Albumin Globulin Albumin/Globulin Ratio 07/28/18 07/28/18 07/28/18 05:37 05:40 05:40 WBC 9.3 RBC 3.69 Hgb 10.3 L Hct 33.1 L MCV 89.7 D MCH 27.9 MCHC 31.1 RDW 14.4 Plt Count 224 MPV 9.6 Gran % 79.2 H Lymph % (Auto) 14.7 L [place] % (Auto) 5.5 Eos % (Auto) 0.3 L Baso % (Auto) 0.3 Gran # 7.36 H Lymph # (Auto) 1.4 [place] # (Auto) 0.5 Eos # (Auto) 0.0 Baso # (Auto) 0.03 pCO2 pO2 HCO3 ABG pH ABG Total CO2 ABG O2 Saturation ABG O2 Content ABG Base Excess ABG Hemoglobin ABG Carboxyhemoglobin POC ABG HHb (Measured) ABG Methemoglobin ABG O2 Capacity Hgb O2 Saturation FiO2 Sodium 141 Potassium 3.5 L Chloride 106 Carbon Dioxide 26 Anion Gap 13 BUN 10 Creatinine 1.0 Est GFR ( Amer) > 60 Est GFR (Non-Af Amer) 56 POC Glucose (mg/dL) 91 Random Glucose 116 H Calcium 8.9 Phosphorus 2.7 Magnesium 1.7 Total Bilirubin 0.6 AST 21 ALT 18 Alkaline Phosphatase 131 H Total Protein 6.9 Albumin 3.5 Globulin 3.4 Albumin/Globulin Ratio 1.0 L 07/28/18 11:29 WBC RBC Hgb Hct MCV MCH MCHC RDW Plt Count MPV Gran % Lymph % (Auto) [place] % (Auto) Eos % (Auto) Baso % (Auto) Gran # Lymph # (Auto) [place] # (Auto) Eos # (Auto) Baso # (Auto) pCO2 pO2 HCO3 ABG pH ABG Total CO2 ABG O2 Saturation ABG O2 Content ABG Base Excess ABG Hemoglobin ABG Carboxyhemoglobin POC ABG HHb (Measured) ABG Methemoglobin ABG O2 Capacity Hgb O2 Saturation FiO2 Sodium Potassium Chloride Carbon Dioxide Anion Gap BUN Creatinine Est GFR ( Amer) Est GFR (Non-Af Amer) POC Glucose (mg/dL) 153 H Random Glucose Calcium Phosphorus Magnesium Total Bilirubin AST ALT Alkaline Phosphatase Total Protein Albumin Globulin Albumin/Globulin Ratio Fingerstick Blood Sugar Results: 116 Review of Systems - Review of Systems Systems not reviewed;Unavailable: Altered Mental Status Critical Care Progress Note - Ventilator Checklist Head of Bed 30 Degrees: Yes PUD Prophalyxis: Yes DVT Prophylaxis: Yes - Extremities/Vascular Does the Patient have a Central Venous Catheter?: No Does the Patient need a Central Venous Catheter?: No Assessment/Plan - Assessment and Plan (Free Text) Assessment: 63 year old female with past medical history of obesity, diabetes mellitus type II, HTN, opiod abuse, chronic back pain presents with lethargy, fatigue, AMS as per after overdosing on opiod medication. In ER, narcan was unsuccessful at resolving lethargy. Patient was subsequently intubated due to hypercapnic, hypoxic respiratory failure. Plan: Neuro: -Patient currently AAOx2 and fatigued. -Repeat ABG ordered and patient will be progressed to nasal cannula from BiPap if ABG shows no hypercapneia. -Patient started on precedex drip for agitation/altered mental status -Monitor neuro status. -Reorient patient as necessary. Cardio: -RRR, normotensive, no signs of HD compromise -EKG: sinus tachycardia with HR: 110. -Maintain MAP>65. -Monitor for S/S, HD compromise. Pulm: -Patient is stating well on NC 2L. Patient will have BiPap for night time. -Maintain O2 saturation>95%. -ABG from this morning: ph: 7.38, pCO2: 48, pO2: 80 -Due to patient's improvement in pCO2, patient was started on NC today. -Elevate bed to 30 degrees GI: -Tolerating diet well. -Protonix 40 mg daily /Nephro: -BUN/Cr stable at 13/1.0 -UA: positive for nitrates, leukocyte esterase, 5-10 WBC, 10-12 epithelial cells, small bacteria -Patient started on ceftriaxone for UTI. -Potassium: 3.5. Continue to monitor. -Good urine output: 110 this morning -Continue monitoring. -Replete electrolytes as needed. -Maintain euvolemia. Endocrinology: -Random glucose: 116 -Maintain euglycemia. Heme/Onc: -H/H stable at 8.6/24.6. -No signs of HD compromise. -Continue monitoring H/H ID: -Afebrile, no leukocytosis -No growth on blood culture. -UA: positive for nitrates, leukocyte esterase, 5-10 WBC, 10-12 epithelial mray ls, small bacteria -UDS positive for benzodiazepines, opiates, and methadone. -CXR: last endotracheal tube before extubation showed no consolidations, effusions, or infiltrates. -Start ceftriaxone day 2 for UTI. -Monitor for signs and symptoms of infection. DVT prophylaxis: lovenox 40 mg daily GI prophylaxis: protonix 40 mg daily Disposition: Patient stable and ready for transfer to med/surg floors. Patient plan discussed with Dr. Tran. - Date & Time Date: 07/28/18 Time: 13:08 <Aneudy Tran - Last Filed: 07/28/18 15:01> CCU Objective - Vital Signs / Intake & Output Vital Signs (Last 4 hours): Vital Signs Pulse Resp Pulse Ox 07/28/18 11:20 100 H 21 98 07/28/18 11:10 103 H 19 98 Intake and Output (Last 8hrs): Intake & Output 07/28/18 07/28/18 07/28/18 06:59 14:59 22:59 Intake Total 100 Output Total 1700 Balance -1600 Weight 183 lb 8 oz Intake: Oral 100 Output: Urine 1700 Urethral (Arauz) 1700 Other: # Bowel Movements 0 - Medications Active Medications: Active Medications Generic Name Dose Route Start Last Admin Trade Name Freq PRN Reason Stop Dose Admin Enoxaparin Sodium 40 mg 07/27/18 10:00 07/28/18 09:57 Lovenox SC 40 mg DAILY TOMMIE Administration Protocol Propofol 1,000 mg in 100 mls @ 4.627 mls/hr 07/26/18 13:23 07/27/18 10:25 Diprivan IV Infused .[id number] PRN Titration TITRATE PER MD ORDER Protocol 10 MCG/KG/MIN Dexmedetomidine HCl 400 mcg in 100 mls @ 4.196 mls/hr 07/27/18 10:36 Precedex 400mcg/100ml IV .[id number] PRN Agitation Protocol 0.2 MCG/KG/HR Ceftriaxone Sodium 1 gm in 100 mls @ 100 mls/hr 07/27/18 10:45 07/28/18 09:57 Rocephin 1 Gram Ivpb IVPB 100 mls/hr DAILY TOMMIE Administration Protocol Sodium Chloride 1,000 mls @ 100 mls/hr 07/27/18 12:08 07/28/18 00:57 Sodium Chloride 0.9% IV 100 mls/hr .Q10H TOMMIE Administration Lorazepam 0.5 mg 07/27/18 12:13 07/27/18 21:28 Ativan IVP 0.5 mg Q6H PRN Administration Anxiety Protocol Naproxen 550 mg 07/27/18 18:00 07/28/18 09:57 Anaprox Ds PO Not Given BID TOMMIE Ondansetron HCl 4 mg 07/27/18 12:12 Zofran Inj IVP Q6H PRN Nausea/Vomiting Trazodone HCl 100 mg 07/27/18 22:00 07/27/18 21:28 Desyrel PO 100 mg HS TOMMIE Administration - Patient Studies Lab Studies: Microbiology Studies 07/27/18 13:00 Blood Culture - Preliminary Blood-Venous NO GROWTH AFTER 24 HOURS 07/27/18 12:30 Blood Culture - Preliminary Blood-Venous NO GROWTH AFTER 24 HOURS 07/26/18 20:30 Blood Culture - Preliminary Blood-Venous NO GROWTH AFTER 24 HOURS 07/26/18 20:00 Blood Culture - Preliminary Blood-Venous NO GROWTH AFTER 24 HOURS Lab Studies 07/28/18 07/28/18 07/28/18 Range/Units 11:29 05:40 05:40 WBC 9.3 (4.5-11.0) 10^3/ul RBC 3.69 (3.5-6.1) 10^6/uL Hgb 10.3 L (12.0-16.0) g/dL Hct 33.1 L (36.0-48.0) % MCV 89.7 D (80.0-105.0) fl MCH 27.9 (25.0-35.0) pg MCHC 31.1 (31.0-37.0) g/dl RDW 14.4 (11.5-14.5) % Plt Count 224 (120.0-450.0) 10^3/uL MPV 9.6 (7.0-11.0) fl Gran % 79.2 H (50.0-68.0) % Lymph % (Auto) 14.7 L (22.0-35.0) % [place] % (Auto) 5.5 (1.0-6.0) % Eos % (Auto) 0.3 L (1.5-5.0) % Baso % (Auto) 0.3 (0.0-3.0) % Gran # 7.36 H (1.4-6.5) Lymph # (Auto) 1.4 (1.2-3.4) [place] # (Auto) 0.5 (0.1-0.6) Eos # (Auto) 0.0 (0.0-0.7) Baso # (Auto) 0.03 (0.0-2.0) K/mm3 pCO2 (35-45) mm/Hg pO2 (80-100) mm/Hg HCO3 (21-28) mmol/L ABG pH (7.35-7.45) ABG Total CO2 (22-28) mmol.L ABG O2 Saturation (95-98) % ABG O2 Content (15-23) ML/dl ABG Base Excess (-2.0-3.0) mmol/L ABG Hemoglobin (11.7-17.4) g/dL ABG Carboxyhemoglobin (0.5-1.5) % POC ABG HHb (Measured) (0-5) % ABG Methemoglobin (0.0-3.0) % ABG O2 Capacity (16-24) mL/dl Hgb O2 Saturation (95.0-98.0) % FiO2 % Sodium 141 (132-148) mmol/L Potassium 3.5 L (3.6-5.0) mmol/L Chloride 106 (98-107) mmol/L Carbon Dioxide 26 (21-33) mmol/L Anion Gap 13 (10-20) BUN 10 (7-21) mg/dL Creatinine 1.0 (0.7-1.2) mg/dl Est GFR ( Amer) > 60 Est GFR (Non-Af Amer) 56 POC Glucose (mg/dL) 153 H (65-110) mg/dL Random Glucose 116 H (70-110) mg/dL Calcium 8.9 (8.4-10.5) mg/dL Phosphorus 2.7 (2.5-4.5) mg/dL Magnesium 1.7 (1.7-2.2) mg/dL Total Bilirubin 0.6 (0.2-1.3) mg/dL AST 21 (14-36) U/L ALT 18 (7-56) U/L Alkaline Phosphatase 131 H (38-126) U/L Total Protein 6.9 (5.8-8.3) g/dL Albumin 3.5 (3.0-4.8) g/dL Globulin 3.4 gm/dL Albumin/Globulin Ratio 1.0 L (1.1-1.8) 07/28/18 07/28/18 07/27/18 Range/Units 05:37 03:15 16:24 WBC (4.5-11.0) 10^3/ul RBC (3.5-6.1) 10^6/uL Hgb (12.0-16.0) g/dL Hct (36.0-48.0) % MCV (80.0-105.0) fl MCH (25.0-35.0) pg MCHC (31.0-37.0) g/dl RDW (11.5-14.5) % Plt Count (120.0-450.0) 10^3/uL MPV (7.0-11.0) fl Gran % (50.0-68.0) % Lymph % (Auto) (22.0-35.0) % [place] % (Auto) (1.0-6.0) % Eos % (Auto) (1.5-5.0) % Baso % (Auto) (0.0-3.0) % Gran # (1.4-6.5) Lymph # (Auto) (1.2-3.4) [place] # (Auto) (0.1-0.6) Eos # (Auto) (0.0-0.7) Baso # (Auto) (0.0-2.0) K/mm3 pCO2 48 H (35-45) mm/Hg pO2 80.0 (80-100) mm/Hg HCO3 28.4 H (21-28) mmol/L ABG pH 7.38 (7.35-7.45) ABG Total CO2 29.9 H (22-28) mmol.L ABG O2 Saturation 98.1 H (95-98) % ABG O2 Content 13.4 L (15-23) ML/dl ABG Base Excess 2.7 (-2.0-3.0) mmol/L ABG Hemoglobin 9.9 L (11.7-17.4) g/dL ABG Carboxyhemoglobin 2.0 H (0.5-1.5) % POC ABG HHb (Measured) 1.8 (0-5) % ABG Methemoglobin 1.0 (0.0-3.0) % ABG O2 Capacity 13.7 L (16-24) mL/dl Hgb O2 Saturation 95.2 (95.0-98.0) % FiO2 28.0 % Sodium (132-148) mmol/L Potassium (3.6-5.0) mmol/L Chloride (98-107) mmol/L Carbon Dioxide (21-33) mmol/L Anion Gap (10-20) BUN (7-21) mg/dL Creatinine (0.7-1.2) mg/dl Est GFR ( Amer) Est GFR (Non-Af Amer) POC Glucose (mg/dL) 91 128 H (65-110) mg/dL Random Glucose (70-110) mg/dL Calcium (8.4-10.5) mg/dL Phosphorus (2.5-4.5) mg/dL Magnesium (1.7-2.2) mg/dL Total Bilirubin (0.2-1.3) mg/dL AST (14-36) U/L ALT (7-56) U/L Alkaline Phosphatase (38-126) U/L Total Protein (5.8-8.3) g/dL Albumin (3.0-4.8) g/dL Globulin gm/dL Albumin/Globulin Ratio (1.1-1.8) Laboratory Results - last 24 hr 07/27/18 07/28/18 07/28/18 16:24 03:15 05:37 WBC RBC Hgb Hct MCV MCH MCHC RDW Plt Count MPV Gran % Lymph % (Auto) [place] % (Auto) Eos % (Auto) Baso % (Auto) Gran # Lymph # (Auto) [place] # (Auto) Eos # (Auto) Baso # (Auto) pCO2 48 H pO2 80.0 HCO3 28.4 H ABG pH 7.38 ABG Total CO2 29.9 H ABG O2 Saturation 98.1 H ABG O2 Content 13.4 L ABG Base Excess 2.7 ABG Hemoglobin 9.9 L ABG Carboxyhemoglobin 2.0 H POC ABG HHb (Measured) 1.8 ABG Methemoglobin 1.0 ABG O2 Capacity 13.7 L Hgb O2 Saturation 95.2 FiO2 28.0 Sodium Potassium Chloride Carbon Dioxide Anion Gap BUN Creatinine Est GFR ( Amer) Est GFR (Non-Af Amer) POC Glucose (mg/dL) 128 H 91 Random Glucose Calcium Phosphorus Magnesium Total Bilirubin AST ALT Alkaline Phosphatase Total Protein Albumin Globulin Albumin/Globulin Ratio 07/28/18 07/28/18 07/28/18 05:40 05:40 11:29 WBC 9.3 RBC 3.69 Hgb 10.3 L Hct 33.1 L MCV 89.7 D MCH 27.9 MCHC 31.1 RDW 14.4 Plt Count 224 MPV 9.6 Gran % 79.2 H Lymph % (Auto) 14.7 L [place] % (Auto) 5.5 Eos % (Auto) 0.3 L Baso % (Auto) 0.3 Gran # 7.36 H Lymph # (Auto) 1.4 [place] # (Auto) 0.5 Eos # (Auto) 0.0 Baso # (Auto) 0.03 pCO2 pO2 HCO3 ABG pH ABG Total CO2 ABG O2 Saturation ABG O2 Content ABG Base Excess ABG Hemoglobin ABG Carboxyhemoglobin POC ABG HHb (Measured) ABG Methemoglobin ABG O2 Capacity Hgb O2 Saturation FiO2 Sodium 141 Potassium 3.5 L Chloride 106 Carbon Dioxide 26 Anion Gap 13 BUN 10 Creatinine 1.0 Est GFR ( Amer) > 60 Est GFR (Non-Af Amer) 56 POC Glucose (mg/dL) 153 H Random Glucose 116 H Calcium 8.9 Phosphorus 2.7 Magnesium 1.7 Total Bilirubin 0.6 AST 21 ALT 18 Alkaline Phosphatase 131 H Total Protein 6.9 Albumin 3.5 Globulin 3.4 Albumin/Globulin Ratio 1.0 L Attending/Attestation - Attestation I have personally seen and examined this patient.: Yes I have fully participated in the care of the patient.: Yes I have reviewed all pertinent clinical information: Yes Notes (Text): 07/28/18 15:00 63 yo female with multidrug overdose requiring intubation, subsequently extubated to BPAP. BPAP was weaned, acute respiratory acidosis resolved. Patient alert awake oriented. ok to downgrade to medsur ccm time 40 min
[2018-07-28] MEDS ORDERED: Metoprolol 1 mg/ml Inj IVP ONE (16:16)
--- NOTE | 2018-07-29 00:05 | PN ---
DATE: 07/28/2018 SUBJECTIVE: The patient is 63 years old, was extubated, still looks lethargic, not very communicative. PHYSICAL EXAMINATION: GENERAL: She is afebrile, pulse 94, respirations 20, blood pressure 157/89. LUNGS: Bilateral fair airflow. No rhonchi or crackle. HEART: S1, S2 audible. ABDOMEN: Soft, nontender. No rebound. No guarding. NEUROLOGICAL: She is sleepy but arousable. LABORATORY EXAM: WBC is 9.3, hemoglobin 10.3, hematocrit 33.1, platelet 224. Chemistry: Sodium 141, potassium 3.5, chloride 106, CO2 of 26, BUN 10, creatinine 1. Blood sugar of 127. Urine has gram-negative rods. Blood cultures are negative. X-ray of chest is unremarkable. ASSESSMENT: 1. Status post multidrug abuse. 2. Status post respiratory failure. 3. Chronic degenerative disc disease. 4. Narcotic dependence. PLAN: We will monitor her blood pressure. Get swallowing evaluation. Currently she is on IV fluid. We will give her IV fluid. Get Neurology consult, and physical therapy evaluation will be requested for the morning. We will reevaluate the patient in the a.m. Teri Le MD
[2018-07-29] MEDS: Sodium Chloride 0.9% 1,000 ML IV SCH ×2 (01:44→17:02)
[2018-07-29 05:48] LABS: ARTERIAL BLOOD GAS HCO3 25.1 mmol/L (21-28); ARTERIAL BLOOD GAS HEMOGLOBIN 9.6 g/dL (11.7-17.4); ARTERIAL BLOOD GAS O2 CAPACITY 13.1 mL/dl (16-24); ARTERIAL BLOOD GAS O2 CONTENT 12.7 ML/dl (15-23); ARTERIAL BLOOD GAS O2 SAT 96.8 % (95-98); ARTERIAL BLOOD GAS PCO2 37 mm/Hg (35-45); ARTERIAL BLOOD GAS PH 7.44 (7.35-7.45); ARTERIAL BLOOD GAS TCO2 26.2 mmol.L (22-28)
[2018-07-29 07:19] LABS: BASO # 0.01 K/mm3 (0.0-2.0); BASO % 0.1 % (0.0-3.0); EOS % 0.2 % (1.5-5.0); GRAN # 8.6 (1.4-6.5); GRAN % 81.1 % (50.0-68.0); HEMOGLOBIN 9.9 g/dL (12.0-16.0); LYMPH # 1.3 (1.2-3.4); LYMPH % 12.2 % (22.0-35.0); MEAN CELL VOLUME 88.9 fl (80.0-105.0); MEAN CORPUSCULAR HEMOGLOBIN 28.2 pg (25.0-35.0); MEAN CORPUSCULAR HGB CONC 31.7 g/dl (31.0-37.0); MEAN PLATELET VOLUME 9.5 fl (7.0-11.0); MONO # 0.7 (0.1-0.6); MONO % 6.4 % (1.0-6.0); RBC 3.51 10^6/uL (3.5-6.1); RED CELL DISTRIBUTION WIDTH 14.8 % (11.5-14.5); WHITE BLOOD COUNT 10.6 10^3/ul (4.5-11.0)
[2018-07-29 07:44] LABS: ALBUMIN 3.3 g/dL (3.0-4.8); ALT/SGPT 15 U/L (7-56); AST/SGOT 17 U/L (14-36); BLOOD UREA NITROGEN 13 mg/dL (7-21); CALCIUM 8.6 mg/dL (8.4-10.5); GFR NON-AFRICAN AMERICAN > 60
[2018-07-29 08:30] VITALS: RESP 20
[2018-07-29] MEDS: cefTRIAXone 1 gm 1 GM/100 ML BAG IVPB SCH (10:39)
[2018-07-29] MEDS: Enoxaparin 40 mg Syringe SC SCH (10:39)
[2018-07-29] MEDS: Naproxen 550 mg Tab PO SCH ×2 (10:43→17:01)
--- NOTE | 2018-07-29 16:12 | PN ---
DATE: 07/29/2018 SUBJECTIVE: The patient is 63 years old, seen and examined. Still lethargic. Able to communicate, answer simple question, but really not very communicative to carry our conversation. The patient's son recently , but she does not recall that. She thinks he is sick and he is in the hospital. Denies having overdose. No history of fever or chills, difficulty swallowing. PHYSICAL EXAMINATION: VITAL SIGNS: She is afebrile, pulse 94, respirations 20, blood pressure . LUNGS: Bilateral good airflow. No rhonchi or crackle. HEART: S1 and S2 audible. ABDOMEN: Soft. Nontender. No rebound. No guarding. NEUROLOGICAL: She is lethargic and sleepy, opens eye on verbal command and responds to painful stimuli. EXTREMITIES: Moves all extremity. LABORATORY EXAM: WBC is 10.6, hemoglobin 9.9, hematocrit 31.2, platelet 240. Chemistry: Sodium 140, potassium 3.2, chloride 105, CO2 of 26, BUN 13, creatinine 0.9, blood sugar of 122. Her urine has Citrobacter freundii. Blood cultures are negative. CT scan of the head was done on 07/26/2018, was unremarkable. ASSESSMENT: 1. Persistent lethargy. 2. Status post drug overdose. 3. Depression. 4. Chronic back pain. 5. Noninsulin-dependent diabetes. 6. Anxiety disorder. PLAN: The patient is currently on Rocephin. I will request neuro evaluation for possible spinal tap since her son with the similar situation to rule out meningitis and ID evaluation has been requested. I will increase her Rocephin to 2 g daily. Get MRI of the brain. We will reevaluate the patient in the a.m. Teri Le MD
--- NOTE | 2018-07-29 17:00 | CP.PCM.PCO ---
Physician Communication Note - Physician Communication Note Physician Communication Note: ams is more toxic/metabolic/medication overdose. not meningitis.
[2018-07-29] MEDS ORDERED: Gadodiamide 287 MG/ML VIAL (15ML) IV ONE (20:16)
--- NOTE | 2018-07-29 23:20 | CON ---
DATE: 07/29/2018 HISTORY OF PRESENT ILLNESS: This is a 63-year-old female with a past medical history of diabetes, hypertension, chronic back pain and found her confused, disoriented, became increasingly fatigued and lethargic. Now responding better, but able to follow some commands and called to evaluate the patient for change in mental status. PAST MEDICAL HISTORY: Diabetes, hypertension, hyperlipidemia, chronic back pain. ALLERGIES: NO DRUG ALLERGY. MEDICATIONS: Xanax, Janumet, oxycodone, MS Contin, glipizide. SOCIAL HISTORY: Lives with and smokes. Does not drink. PHYSICAL EXAMINATION: HEENT: Normocephalic, atraumatic. NECK: Supple. NEUROLOGIC: Awake, oriented to self and place. Cranial nerve II through XII are tested. Pupils reactive. Moves all the extremities spontaneously. Deep tendon reflexes 1+. Both plantars are downgoing. Sensory appears intact. Cerebellar, gait deferred. IMPRESSION: Altered mental status; encephalopathy, toxic metabolic; anxiety; hypertension; and diabetes. Workup in progress. CAT scan of the head was done, which was reported negative. Continue present management. We will follow up. Johny Desouza MD
[2018-07-30] MEDS: Sodium Chloride 0.9% 1,000 ML IV SCH (00:10)
--- NOTE | 2018-07-30 02:24 | CON ---
DATE: 07/29/2018 HISTORY OF PRESENT ILLNESS: Shortly, the patient is a 63-year-old female with not known previous psychiatric history. The patient was admitted for evaluation of altered mental status, most likely status post overdose on opioids. The patient also has chronic back pain and opioid abuse. As per history, the patient's son very recently. This investigative writer got involved into the patient care for possible depressive symptoms as well as possible suicidal attempt. This investigative writer attempted to speak to the patient. The patient presented to be lethargic, confused. When the patient opened her eyes, the patient keep repeating, "oh my God, oh my God if my son , if Yinka ?" The patient was not able to participate in interview in meaningful way. The patient presented to be apathetic flat affect. No eye contact. The patient seems to be in very deep depressed mold or status post overdose. This investigative writer reviewed notes. Reviewed vital signs. Temperature 97.7, pulse is 84, blood pressure 181/97, respiration 20, oxygen saturation is 96. Medications reviewed. The patient is on Rocephin, clonidine, Lovenox, Ativan 0.5 mg IV push every 6 hours p.r.n., naproxen, Zofran, potassium chloride, trazodone 100 mg at the nighttime, but it was held because the patient was lethargic. Labs reviewed. Most recent was from today. Toxicology was positive for opioids, methadone as well as benzodiazepines. Microbiology was positive for Citrobacter in urine. Reports reviewed. Neurologist saw the patient and does not have impression that the patient has meningitis. Most likely the patient is in delirium stage. MENTAL STATUS EXAMINATION: As this investigative writer described above. The patient presented to be delirious, apathetic, opening her eyes, flat affect. Speech was underproductive when the patient talks, the patient is keep mumbling, "oh my God, oh my God if Yinka ?" Thought process seems to be concrete. Thought content, this investigative writer was not able to evaluate suicidality, homicidality, hopelessness or psychotic symptoms. Insight and judgment seems to be impaired. Impulses are unpredictable. IMPRESSION: As per history, the patient has depression, opioid abuse, chronic back pain. The patient's son recently , rule out acute stress disorder, rule out grief. PLAN: Continue current management. Continue current medication. We will follow up and advise accordingly. The patient was not able to participate in interview in meaningful way, seems to be deeply depressed. Thank you very much for letting me participate in care of your patient. Should you have any questions, give me a call back. Reva Felder MD
[2018-07-30 07:08] LABS: BASO # 0.02 K/mm3 (0.0-2.0); BASO % 0.3 % (0.0-3.0); EOS # 0.1 (0.0-0.7); EOS % 1.3 % (1.5-5.0); GRAN # 5.21 (1.4-6.5); HEMOGLOBIN 9.3 g/dL (12.0-16.0); LYMPH # 1.7 (1.2-3.4); MEAN CELL VOLUME 88.8 fl (80.0-105.0); MEAN CORPUSCULAR HEMOGLOBIN 28.1 pg (25.0-35.0); MEAN CORPUSCULAR HGB CONC 31.6 g/dl (31.0-37.0); MEAN PLATELET VOLUME 8.8 fl (7.0-11.0); MONO # 0.5 (0.1-0.6); MONO % 6.4 % (1.0-6.0); RBC 3.31 10^6/uL (3.5-6.1); RED CELL DISTRIBUTION WIDTH 14.7 % (11.5-14.5); WHITE BLOOD COUNT 7.6 10^3/ul (4.5-11.0)
[2018-07-30 07:34] LABS: ALB/GLOB RATIO 0.9 (1.1-1.8); ALBUMIN 3.1 g/dL (3.0-4.8); ALT/SGPT 13 U/L (7-56); AST/SGOT 18 U/L (14-36); BLOOD UREA NITROGEN 18 mg/dL (7-21); CALCIUM 8.5 mg/dL (8.4-10.5); GFR NON-AFRICAN AMERICAN > 60
--- NOTE | 2018-07-30 10:01 | CP.PCM.CON ---
<Asia Claudio - Last Filed: 07/30/18 13:40> History of Present Illness - History of Present Illness History of Present Illness: PGY-3 Resident ID consult note for Dr. Zepeda Reason for consult: meningitis Patient is a 63 y/o female with PMHx of obesity, DM, htn, opioid abuse, chronic back pain who initially was bought in by ambulance on 07/26/18 due to AMS and lethargy suspicious for drug overdose, was giving rounds of narcan in the ED, then subsequently intubated for airway protection when the mental status didn't improve. Patient was subsequently admitted in the ICU, and eventually extubated the next day. Patient was transferred to med/surg floor, and ID is being consulted today to rule out meningitis. Saw patient this morning on the 3rd floor. Patient states she doesn't remember how she got to the hospital, however she was told she was drowsy and confused. Patient is in denial as to whether she overdosed on her meds. Denies fever, chills, no nausea, vomiting or diarrhea. PMHx: obesity, DM, htn, opioid abuse, chornic back pain PSHx: lumbar and cervical spine surgeries years ago FMHx: non contributory Social: current tobacco, deneis alcohol, deneis ilicit drug use, takes prescrbed opioid and benzo. Allergis: NKDA Home meds: as per chart Mutidrug overdose- Utox positive for benzo, opioids, and methadone Review of Systems - Constitutional Constitutional: absent: Chills, Fatigue, Fever, Headache, Night Sweats - EENT Eyes: absent: Blurred Vision, Change in Vision, Discharge Ears: absent: Disequilibrium, Dizziness Nose/Mouth/Throat: absent: Nasal Congestion - Cardiovascular Cardiovascular: absent: Chest Pain, Chest Pain at Rest, Dyspnea, Edema, Irregular Heart Rhythm, Palpitations - Respiratory Respiratory: absent: Dyspnea, Hemoptysis, Wheezing, Pain on Inspiration, Chest Congestion, Pain with Coughing - Gastrointestinal Gastrointestinal: absent: Abdominal Pain, Belching, Bloating, Diarrhea - Genitourinary Genitourinary: absent: Dysuria, Pyuria, Urinary Frequency, Freq UTI - Integumentary Integumentary: absent: Dry Skin - Neurological Neurological: absent: Dizziness, Numbness - Psychiatric Psychiatric: Depression. absent: Confusion Past Patient History - Past Social History Smoking Status: Former Smoker Alcohol: None Home Situation {Lives}: With Family - CARDIAC Hx Hypertension: Yes - PULMONARY Hx Respiratory Disorders: No - NEUROLOGICAL Hx Neurological Disorder: No - HEENT Hx HEENT Problems: Yes Hx Cataracts: Yes (with surgery) - RENAL Hx Chronic Kidney Disease: No - ENDOCRINE/METABOLIC Hx Diabetes Mellitus Type 2: Yes - HEMATOLOGICAL/ONCOLOGICAL Hx Blood Disorders: No - INTEGUMENTARY Hx Dermatological Problems: Yes (L great toe bullae) - MUSCULOSKELETAL/RHEUMATOLOGICAL Hx Arthritis: Yes - GASTROINTESTINAL Hx Gastrointestinal Disorders: No - GENITOURINARY/GYNECOLOGICAL Hx Genitourinary Disorders: No - PSYCHIATRIC Hx Anxiety: Yes Hx Depression: No Hx Emotional Abuse: No Hx Physical Abuse: No - SURGICAL HISTORY Other/Comment: neck surgery - ANESTHESIA Hx Anesthesia: Yes Hx Anesthesia Reactions: No Hx Malignant Hyperthermia: No Meds Allergies/Adverse Reactions: Allergies Allergy/AdvReac Type Severity Reaction Status Date / Time No Known Allergies Allergy Verified 05/22/18 22:41 - Medications Medications: Current Medications Clonidine HCl (Catapres-Tts2 0.2 Mg/24 Hr) 1 patch TD Q7D@1000 TOM[facility]E Last Admin: 07/28/18 18:34 Dose: 1 patch Enoxaparin Sodium (Lovenox) 40 mg SC DAILY [facility]; Protocol Last Admin: 07/29/18 10:39 Dose: 40 mg Ceftriaxone Sodium (Rocephin 1 Gram Ivpb) 1 gm in 100 mls @ 100 mls/hr IVPB DAILY [facility]; Protocol Last Admin: 07/29/18 10:39 Dose: 100 mls/hr Sodium Chloride (Sodium Chloride 0.9%) 1,000 mls @ 100 mls/hr IV .Q10H TOMMIE Last Admin: 07/30/18 00:10 Dose: 100 mls/hr Lorazepam (Ativan) 0.5 mg IVP Q6H PRN; Protocol PRN Reason: Anxiety Last Admin: 07/29/18 22:24 Dose: 0.5 mg Naproxen (Anaprox Ds) 550 mg PO BID TOMMIE Last Admin: 07/29/18 17:01 Dose: 550 mg Ondansetron HCl (Zofran Inj) 4 mg IVP Q6H PRN PRN Reason: Nausea/Vomiting Last Admin: 07/28/18 18:33 Dose: 4 mg Trazodone HCl (Desyrel) 100 mg PO HS [facility]OM[facility] Last Admin: 07/29/18 22:23 Dose: 100 mg Physical Exam - Constitutional Appears: No Acute Distress, Older Than Stated Age, Chronically Ill - Head Exam Head Exam: ATRAUMATIC, NORMAL INSPECTION, NORMOCEPHALIC - Eye Exam Eye Exam: EOMI, Normal appearance, PERRL. absent: Scleral icterus - ENT Exam ENT Exam: Mucous Membranes Moist - Neck Exam Neck exam: Positive for: Normal Inspection. Negative for: Lymphadenopathy, Men ingismus, Tenderness, Thyromegaly - Respiratory Exam Respiratory Exam: Clear to Auscultation Bilateral, NORMAL BREATHING PATTERN. absent: Rales, Rhonchi, Wheezes, Respiratory Distress, Stridor - Cardiovascular Exam Cardiovascular Exam: REGULAR RHYTHM, +S1, +S2 - GI/Abdominal Exam GI & Abdominal Exam: Normal Bowel Sounds, Soft. absent: Distended, Firm, Guarding, Rebound, Rigid, Tenderness - Extremities Exam Extremities exam: Positive for: normal inspection. Negative for: pedal edema - Back Exam Back exam: NORMAL INSPECTION - Neurological Exam Neurological exam: Alert, Oriented x3 - Psychiatric Exam Psychiatric exam: Depressed - Skin Skin Exam: Dry, Warm Additional comments: Arauz catheter in place. Results - Vital Signs Recent Vital Signs: Last Vital Signs Temp 97.5 F L 07/30/18 09:03 Pulse 69 07/30/18 09:03 Resp 20 07/30/18 09:03 BP 139/93 H 07/30/18 09:03 Pulse Ox 97 07/30/18 09:03 - Labs Result Diagrams: 07/30/18 07:00 07/30/18 07:00 Labs: Laboratory Results - last 24 hr 07/29/18 07/29/18 07/29/18 07:12 11:10 15:59 WBC RBC Hgb Hct MCV MCH MCHC RDW Plt Count MPV Gran % Lymph % (Auto) Benzie % (Auto) Eos % (Auto) Baso % (Auto) Gran # Lymph # (Auto) Benzie # (Auto) Eos # (Auto) Baso # (Auto) Sodium Potassium Chloride Carbon Dioxide Anion Gap BUN Creatinine Est GFR ( Amer) Est GFR (Non-Af Amer) POC Glucose (mg/dL) 107 128 H 132 H Random Glucose Calcium Phosphorus Magnesium Total Bilirubin AST ALT Alkaline Phosphatase Total Protein Albumin Globulin Albumin/Globulin Ratio 07/29/18 07/30/18 07/30/18 21:15 07:00 07:00 WBC 7.6 D RBC 3.31 L Hgb 9.3 L Hct 29.4 L MCV 88.8 MCH 28.1 MCHC 31.6 RDW 14.7 H Plt Count 229 MPV 8.8 Gran % 69.0 H Lymph % (Auto) 23.0 Benzie % (Auto) 6.4 H Eos % (Auto) 1.3 L Baso % (Auto) 0.3 Gran # 5.21 Lymph # (Auto) 1.7 Benzie # (Auto) 0.5 Eos # (Auto) 0.1 Baso # (Auto) 0.02 Sodium 142 Potassium 3.4 L Chloride 107 Carbon Dioxide 27 Anion Gap 12 BUN 18 Creatinine 0.8 Est GFR ( Amer) > 60 Est GFR (Non-Af Amer) > 60 POC Glucose (mg/dL) 103 Random Glucose 99 Calcium 8.5 Phosphorus 3.3 Magnesium 2.0 Total Bilirubin 0.4 AST 18 ALT 13 Alkaline Phosphatase 89 Total Protein 6.5 Albumin 3.1 Globulin 3.4 Albumin/Globulin Ratio 0.9 L Assessment & Plan - Assessment and Plan (Free Text) Assessment: 63 y/o female admitted with AMS likely due to multudrug overdose. R/o meningitis- which is less likely to due physical finding, no fever, and mental status has improved. Likely toxic metabolic due to drugs. UTI Opioid dependency DM Chronic back pain Plan: Patient has been afebrile throughout her admissions. WBC of 12.6 on presentation which has since resolved. Npo growth on blood cultures. Citrobacter UTI, con continue with Rocephin. Follow up with neuro and psych recommendations. Remove Arauz catheter. Patient seen, examined and case discussed with Dr. Zepeda. - Date & Time Date: 07/30/18 Time: 12:20 <Elan Zepeda - Last Filed: 07/30/18 20:54> Meds - Medications Medications: Current Medications Clonidine HCl (Catapres-Tts2 0.2 Mg/24 Hr) 1 patch TD Q7D@1000 TOMMIE Last Admin: 07/28/18 18:34 Dose: 1 patch Enoxaparin Sodium (Lovenox) 40 mg SC DAILY [facility]; Protocol Last Admin: 07/30/18 10:54 Dose: 40 mg Ceftriaxone Sodium (Rocephin 1 Gram Ivpb) 1 gm in 100 mls @ 100 mls/hr IVPB DAILY [facility]; Protocol Last Admin: 07/30/18 10:55 Dose: 100 mls/hr Ibuprofen (Motrin Tab) 600 mg PO Q6H PRN PRN Reason: Pain, moderate (4-7) Lorazepam (Ativan) 0.5 mg IVP Q6H PRN; Protocol PRN Reason: Anxiety Last Admin: 07/30/18 15:30 Dose: 0.5 mg Naproxen (Anaprox Ds) 550 mg PO BID TOMMIE Last Admin: 07/30/18 18:05 Dose: 550 mg Ondansetron HCl (Zofran Inj) 4 mg IVP Q6H PRN PRN Reason: Nausea/Vomiting Last Admin: 07/28/18 18:33 Dose: 4 mg Potassium Chloride (K-Dur 20 Meq Er Tab) 20 meq PO BRK TOMMIE Last Admin: 07/30/18 15:18 Dose: 20 meq Trazodone HCl (Desyrel) 100 mg PO HS [facility] Last Admin: 07/29/18 22:23 Dose: 100 mg Results - Vital Signs Recent Vital Signs: Last Vital Signs Temp 98.2 F 07/30/18 16:47 Pulse 60 07/30/18 18:00 Resp 20 07/30/18 16:47 BP 171/95 H 07/30/18 16:47 Pulse Ox 98 07/30/18 16:47 - Labs Result Diagrams: 07/30/18 07:00 07/30/18 07:00 Labs: Laboratory Results - last 24 hr 07/29/18 07/29/18 07/29/18 07:12 11:10 15:59 WBC RBC Hgb Hct MCV MCH MCHC RDW Plt Count MPV Gran % Lymph % (Auto) Benzie % (Auto) Eos % (Auto) Baso % (Auto) Gran # Lymph # (Auto) Benzie # (Auto) Eos # (Auto) Baso # (Auto) Sodium Potassium Chloride Carbon Dioxide Anion Gap BUN Creatinine Est GFR ( Amer) Est GFR (Non-Af Amer) POC Glucose (mg/dL) 107 128 H 132 H Random Glucose Calcium Phosphorus Magnesium Total Bilirubin AST ALT Alkaline Phosphatase Total Protein Albumin Globulin Albumin/Globulin Ratio 10/08/0607/30/18 07/30/18 21:15 07:00 07:00 WBC 7.6 D RBC 3.31 L Hgb 9.3 L Hct 29.4 L MCV 88.8 MCH 28.1 MCHC 31.6 RDW 14.7 H Plt Count 229 MPV 8.8 Gran % 69.0 H Lymph % (Auto) 23.0 Benzie % (Auto) 6.4 H Eos % (Auto) 1.3 L Baso % (Auto) 0.3 Gran # 5.21 Lymph # (Auto) 1.7 Benzie # (Auto) 0.5 Eos # (Auto) 0.1 Baso # (Auto) 0.02 Sodium 142 Potassium 3.4 L Chloride 107 Carbon Dioxide 27 Anion Gap 12 BUN 18 Creatinine 0.8 Est GFR ( Amer) > 60 Est GFR (Non-Af Amer) > 60 POC Glucose (mg/dL) 103 Random Glucose 99 Calcium 8.5 Phosphorus 3.3 Magnesium 2.0 Total Bilirubin 0.4 AST 18 ALT 13 Alkaline Phosphatase 89 Total Protein 6.5 Albumin 3.1 Globulin 3.4 Albumin/Globulin Ratio 0.9 L 07/30/18 07/30/18 07:05 11:20 WBC RBC Hgb Hct MCV MCH MCHC RDW Plt Count MPV Gran % Lymph % (Auto) Benzie % (Auto) Eos % (Auto) Baso % (Auto) Gran # Lymph # (Auto) Benzie # (Auto) Eos # (Auto) Baso # (Auto) Sodium Potassium Chloride Carbon Dioxide Anion Gap BUN Creatinine Est GFR ( Amer) Est GFR (Non-Af Amer) POC Glucose (mg/dL) 95 134 H Random Glucose Calcium Phosphorus Magnesium Total Bilirubin AST ALT Alkaline Phosphatase Total Protein Albumin Globulin Albumin/Globulin Ratio Assessment & Plan - Assessment and Plan (Free Text) Plan: Infectious Diseases Attending Physician Attestation Patient discussed with medical pathologist. I have the pertinent clinical findings, history of present illness, medical histories, physical exam and pertinent labs and imaging. I agree with the above findings, assessment and plan. In addition, continue Rocephin for possible UTI with Citrobacter. Complete 5-7 days total. Patient has no fever, no meningeal signs, brain MRI does not show meningeal enhancement and WBC count is normal - unlikely meningitis.
[2018-07-30] MEDS: Enoxaparin 40 mg Syringe SC SCH (10:54)
[2018-07-30] MEDS: cefTRIAXone 1 gm 1 GM/100 ML BAG IVPB SCH (10:55)
[2018-07-30] MEDS: Naproxen 550 mg Tab PO SCH ×2 (10:55→18:05)
--- NOTE | 2018-07-30 11:08 | MRI ---
Date of service: 07/29/2018 PROCEDURE: MRI BRAIN WITHOUT CONTRAST HISTORY: encephalopathy COMPARISON: None available. TECHNIQUE: Multiplanar, multisequence MR images of the brain were obtained without intravenous contrast enhancement. FINDINGS: HEMORRHAGE: None DWI: No evidence of an acute or early subacute infarction. BRAIN PARENCHYMA: No mass effect or edema. Minimal chronic microvascular changes are seen in the prem. No acute findings VENTRICLES: Unremarkable. No hydrocephalus. CRANIUM: Unremarkable. ORBITS: Grossly unremarkable. PARANASAL SINUSES/MASTOIDS: There is complete opacification of the sphenoid sinus VASCULAR SYSTEM: Skull base flow voids intact. OTHER FINDINGS: None. IMPRESSION: No acute intracranial findings
--- NOTE | 2018-07-30 14:56 | PN ---
DATE: 07/30/2018 SUBJECTIVE: The patient is 63 years old, seen and examined, looks much more awake, alert, communicative, makes sense what she is saying. Does not eat because she does not like food. PHYSICAL EXAMINATION: VITAL SIGNS: She is afebrile, pulse 69, respirations 20, blood pressure 139/93. LUNGS: Bilateral fair airflow. No rhonchi or crackle. HEART: S1 and S2 audible. ABDOMEN: Soft. Nontender. No rebound. No guarding. NEUROLOGICAL: She is awake, alert, oriented, able to communicate. LABORATORY EXAM: WBC 7.6, ,hemoglobin 9.3, hematocrit 29.4, platelet 229. Chemistry: Sodium 142, potassium 3.4, chloride 107, CO2 of 27, BUN 18, creatinine 0.8, blood sugar of 99. Blood culture, urine cultures were negative. The patient went to have MRI done. There is no acute intracranial finding noted. ASSESSMENT: 1. Status post drug overdose, but the patient does not admit that she overdosed herself. Status post respiratory failure and now successfully extubated. 2. Status post altered mental status. She seems to be doing well. MRI is negative. 3. History of chronic back pain. 4. [id number] diabetes. PLAN: We will discontinue telemetry, discontinue her Arauz catheter. Advance diet. Discontinue IV fluids. Physical therapy evaluation has been ordered. Will be evaluated by the psychiatrist and if cleared from psychiatric point of view. Once the patient to ambulate and if stable to walk, will be discharged in the a.m. Teri Le MD
[2018-07-30] MEDS: Potassium Chloride 20 mEq ER Tab PO SCH (15:18)
--- NOTE | 2018-07-30 16:40 | PN ---
DATE: 07/30/2018 SUBJECTIVE: In short, the patient is 63-year-old female with not known previous psychiatric history. The patient has chronic back pain and is on pain management for at least 9 years. The patient was admitted on the ICU for evaluation of possible overdose on opioids. Of note, the patient's son last week and medical team had concerns about possible suicidal attempt for the patient. This marketing writer attempted to speak to the patient yesterday, but the patient was in catatonic stage, was keep repeating "is that true that my son , is that true that my son ," was not able to participate in interview. The patient was reevaluated today with medical student. The patient presented much better to compare with yesterday, was alert and oriented. The patient said that she is not sure how she ended up in the hospital, adamantly denied taking excessive amount of medication in order to kill herself or in order to help herself. The patient reported that she was very stressed out with the fact that her son which is expected. The patient reported that she had long talk with her after the patient's son "and we decided to be stronger for our grand kids, you know, we have four grand kids as well as I still has two daughters." The patient reported that she never thought about ending up her life. The patient reported that she has future oriented plans. The patient said that her younger grand child is [id number]. The patient adamantly denied thoughts of harming herself or others. Reported to feel very depressed at present moment, but the patient said "everybody would feel the same way as I'm." The patient has affect to be more reactive. The patient was able to smile couple of times during the interview. The patient was provided with emotional support and empathic listening. The patient was provided with outpatient services as well as grieve counseling at [facility], phone number was provided. The patient seems to be very appreciative. VITAL SIGNS: Reviewed. Temperature 97.5, pulse is 69, blood pressure 139/93, respirations 20, oxygen saturation is 97. MEDICATIONS: Reviewed. Rocephin, Catapres, Lovenox, Motrin, Ativan, naproxen, Zofran, K-Dur, and trazodone 100 mg started. LABORATORY DATA: Reviewed. Hemoglobin and hematocrit 9.3 and 29.4. Microbiology reviewed. Urine, Arauz catheter shows Citrobacter. MENTAL STATUS EXAMINATION: The patient presented to be alert and oriented, pleasant, cooperative, fair eye contact. The patient remembered this marketing writer from yesterday. Mood described as depressed. Affect was constricted but more reactive and mood congruent. Thought process was coherent and goal directed. Thought content, the patient denied visual, auditory, or tactile hallucinations. Denied paranoid ideation. The patient denied thoughts of harming herself or others. Denied intent or plan. The patient has future oriented plans. The patient seems to be having good impulse control. IMPRESSION: Most likely, the patient was in acute distress because loss of her son which is expected. Rule out acute stress disorder, rule out adjustment disorder with depressed and anxious mood. PLAN: This marketing writer would not initiate anything else besides the patient is currently on. Emotional support and empathic listening provided. The patient adamantly denied thoughts of harming herself or others. The patient's family seems to be very supportive. The patient was provided with information about outpatient programs. The patient was appreciative. The patient contracted for safety. The patient is not on any imminent danger to self or others. If the patient will be here in the hospital tomorrow, we will follow up. If not, there is no contraindication for discharge because ceremony will be scheduled over the weekend. Thank you very much for letting me to participate in the care of your patient. Should you have any questions, give me a call back. Reva Felder MD
[2018-07-31 07:17] LABS: BASO # 0.03 K/mm3 (0.0-2.0); BASO % 0.3 % (0.0-3.0); EOS # 0.2 (0.0-0.7); EOS % 2.8 % (1.5-5.0); GRAN # 5.17 (1.4-6.5); GRAN % 60.3 % (50.0-68.0); HEMOGLOBIN 9.3 g/dL (12.0-16.0); LYMPH # 2.5 (1.2-3.4); LYMPH % 29.6 % (22.0-35.0); MEAN CELL VOLUME 88.4 fl (80.0-105.0); MEAN CORPUSCULAR HEMOGLOBIN 28.4 pg (25.0-35.0); MEAN CORPUSCULAR HGB CONC 32.1 g/dl (31.0-37.0); MEAN PLATELET VOLUME 9.2 fl (7.0-11.0); MONO # 0.6 (0.1-0.6); RBC 3.28 10^6/uL (3.5-6.1); RED CELL DISTRIBUTION WIDTH 14.9 % (11.5-14.5); WHITE BLOOD COUNT 8.6 10^3/ul (4.5-11.0)
[2018-07-31 07:43] LABS: ALBUMIN 3.2 g/dL (3.0-4.8); ALT/SGPT 17 U/L (7-56); AST/SGOT 18 U/L (14-36); BLOOD UREA NITROGEN 21 mg/dL (7-21); CALCIUM 8.5 mg/dL (8.4-10.5); GFR NON-AFRICAN AMERICAN 56
[2018-07-31 08:36] VITALS: BP 153/79; PULSE 60; TEMP 98; O2SAT 94
[2018-07-31] MEDS: Potassium Chloride 20 mEq ER Tab PO SCH (09:00)
[2018-07-31] MEDS: Naproxen 550 mg Tab PO SCH (09:44)
[2018-07-31] MEDS: cefTRIAXone 1 gm 1 GM/100 ML BAG IVPB SCH (09:45)
[2018-07-31] MEDS: Enoxaparin 40 mg Syringe SC SCH (09:45)
--- NOTE | 2018-07-31 10:54 | PN ---
DATE: 07/31/2018 FOLLOWUP NOTE: SUBJECTIVE: In short, the patient is a 63-year-old female with history of obesity, diabetes, hypertension, opioid abuse, chronic back pain. The patient was brought in to the hospital on July 26, altered mental status and lethargy, suspicious for drug overdose. The patient was given Narcan. The patient was not improving on Narcan. The patient was intubated and admitted into ICU and eventually extubated. Next day, the patient's son recently and medical team was concerned about possible overdose on medication. This conventional mortgage underwriter evaluated the patient for past 2 days. The patient is improving significantly. The patient adamantly denied that she wanted to end up her life. The patient denied that she ever tried to kill herself. The patient reported that she was stressed out about of her son, which is expected. The patient reported that she does not remember the details of her admission to the medical site. For past 2 days, the patient is improving significantly. The patient presented well. Affect is bright, at times tearful, mood congruent. Thought process was coherent and goal directed. The patient reported to be upset, but not depressed. The patient reported that she has 4 grandchildren to raise. The patient also has two other daughters. The patient has supportive . This conventional mortgage underwriter had prolonged conversation with the nursing staff. The patient does not have any agitation or aggression. The patient does not present to be in any imminent danger. The patient eats well. Does not express any thoughts of harming herself. Vital signs are stable. Temperature 98, pulse is 60, blood pressure 153/79, respiration 20, oxygen saturation is 94. Medications reviewed. The patient is on Rocephin, clonidine, Lovenox, Motrin, Ativan, Zofran, K-Dur, trazodone 100 mg at the nighttime. Labs reviewed. Hemoglobin and hematocrit 9.3 and 29. Blood gas reviewed. Chemistry reviewed. Urinalysis reviewed and toxicology reviewed. Opioids positive, methadone positive and benzodiazepines positive. The patient claimed that she was prescribed those medications. MENTAL STATUS EXAMINATION: The patient presented to be alert, oriented, pleasant, cooperative. The patient remembered this conventional mortgage underwriter by name. Mood described, I need to go home, I have a lot of things to do. Affect was reactive, mood congruent. Thought process was coherent and goal directed. Thought content, the patient denied visual, auditory or tactile hallucinations. Denied paranoid ideation. The patient denied any thoughts of harming herself or others. Denied intent or plan. Insight and judgment seems to be improving. Impulses are well controlled. IMPRESSION: Grieving. The patient also has mood disorder due to general medical condition, rule out opioid misuse and abuse because the patient is on pain management for her back pain. PLAN: The patient was provided with all possible referrals yesterday, grieving counseling in [facility], also information about local providers also was given to the patient. The patient was appreciative. This conventional mortgage underwriter wanted to speak to the patient's , but the patient did not give permission to talk to him saying "this is not good day for our family." The patient contracted for safety. The patient pose no imminent danger to self or others. This conventional mortgage underwriter will sign off. Should you have any questions, give me a call back. Reva Felder MD [facility]
--- NOTE | 2018-08-01 07:48 | DS ---
HISTORY OF PRESENT ILLNESS: The patient is 63 years old, seen and examined, doing well, awake alert, oriented, able to tolerate food. The patient is very much awake and alert, yet cannot recall what happened and why she was confused or disoriented. She denies she has been overdosed on her medication; although, she does admit taking narcotics and anxiety medications that she took as usual. The patient states she was in shock because of her son's and probably she had some psychological issue that is why she became confused and disoriented. However, all the workup is negative. She had MRI of the brain done, that was unremarkable. PHYSICAL EXAMINATION: GENERAL: However, on examination today, she is awake, alert, oriented and communicative. VITAL SIGNS: She is afebrile, pulse 60, respirations 20 and blood pressure 153/79. LUNGS: Bilateral good airflow. No rhonchi or crackle. HEART: S1, S2 audible. ABDOMEN: Soft, nontender. No rebound, no guarding. NEUROLOGIC: The patient is awake, alert, oriented and communicative. ASSESSMENT: 1. Status post altered mental status, etiology still unclear. 2. Chronic degenerative disk disease. 3. Non-insulin dependent diabetes. PLAN: The patient is going to be discharged today. She is given prescription of Vantin 100 mg twice a day for another week. She is given five days of her narcotics since she missed her appointment last Friday, so it will cover her for five days until she has pain management next Friday and she will resume her medication for diabetes and she will follow with her PMD. Teri Le MD
--- NOTE | 2018-08-01 14:32 | CP.PCM.PCO ---
Physician Communication Note - Physician Communication Note Physician Communication Note: pt was d/c
== END 2018-07-31 12:29 | disposition home or self-care (01) | DRG 917 ==
LOC: ED 10:39 → ERH 14:49 → CCU 18:07 → 3RSO 07-28 13:01
PROVIDERS: ADMIT Internal Medicine; ATTEND Internal Medicine
PROC: 5A1935Z Respiratory Ventilation, Less than 24 Consecutive Hours (ICD-10-PCS; principal; 2018-07-26)
PROC: 0BH17EZ Insertion of Endotracheal Airway into Trachea, Via Natural or Artificial Opening (ICD-10-PCS; 2018-07-26)
PROC: 5A09357 Assistance with Respiratory Ventilation, Less than 24 Consecutive Hours, Continuous Positive Airway Pressure (ICD-10-PCS; 2018-07-27)
DX: T40.2X1A Poisoning by other opioids, accidental (unintentional), initial encounter (principal); J96.92 Respiratory failure, unspecified with hypercapnia; J96.91 Respiratory failure, unspecified with hypoxia; G92 Toxic encephalopathy; F11.20 Opioid dependence, uncomplicated; N39.0 Urinary tract infection, site not specified; E87.2 Acidosis; T40.3X1A Poisoning by methadone, accidental (unintentional), initial encounter; T42.4X1A Poisoning by benzodiazepines, accidental (unintentional), initial encounter; I10 Essential (primary) hypertension; M54.9 Dorsalgia, unspecified; G89.29 Other chronic pain; E66.9 Obesity, unspecified; Z68.31 Body mass index [BMI] 31.0-31.9, adult; F41.9 Anxiety disorder, unspecified; F32.9 Major depressive disorder, single episode, unspecified; E11.9 Type 2 diabetes mellitus without complications; E78.5 Hyperlipidemia, unspecified; F06.30 Mood disorder due to known physiological condition, unspecified; Z87.891 Personal history of nicotine dependence

== ENCOUNTER 2018-10-12 05:43 | Inpatient (IN) | payer MEDICARE, OTHER ==
[2018-10-12] MEDS ORDERED: Naloxone 0.4 mg/ml Inj (Adult) ONE (05:54)
--- NOTE | 2018-10-12 05:58 | ED PDOC ---
Arrival/HPI - General Historian: Patient, EMS - History of Present Illness Narrative History of Present Illness (Text): 10/12/18 05:55 A 63 year old female, whose past medical history includes Obesity, DM, HTN, opiod abuse, chronic back pain, is brought into the emergency department via EMS for further evaluation. As per EMS, patent's family called because patient was not responding appropriately. They report that the family stated the patient has been sick throughout the past days (1 week) and has not been seen by her PMD. Per EMS there was no slurred speech or unilateral weakness. EMS reports narcotics and opioids in the house. The patient denies any fever, chills, chest pain, shortness of breath, abdominal pain, nausea, vomiting, diarrhea, urinary symptoms, back pain, neck pain, headache, dizziness, or any other complaints. HPI/ ROS limited due to patient's condition. Time/Duration: Prior to Arrival Symptom Onset: Sudden Symptom Course: Unchanged Activities at Onset: Rest, Light Context: Home Past Medical History - Provider Review Nursing Documentation Reviewed: Yes - Cardiac Hx Hypertension: Yes - Pulmonary Hx Respiratory Disorders: No - Neurological Hx Neurological Disorder: No - HEENT Hx HEENT Disorder: Yes Hx Cataracts: Yes (with surgery) - Renal Hx Renal Disorder: No - Endocrine/Metabolic Hx Diabetes Mellitus Type 2: Yes - Hematological/Oncological Hx Blood Disorders: No - Integumentary Hx Dermatological Disorder: Yes (L great toe bullae) - Musculoskeletal/Rheumatological Hx Arthritis: Yes - Gastrointestinal Hx Gastrointestinal Disorders: No - Genitourinary/Gynecological Hx Genitourinary Disorders: No - Psychiatric Hx Anxiety: Yes Hx Depression: No Hx Emotional Abuse: No Hx Physical Abuse: No Hx Substance Use: No - Surgical History Other/Comment: neck surgery - Anesthesia Hx Anesthesia: Yes Hx Anesthesia Reactions: No Hx Malignant Hyperthermia: No - Suicidal Assessment Feels Threatened In Home Enviroment: No Family/Social History - Physician Review Nursing Documentation Reviewed: Yes Family/Social History: No Known Family HX Smoking Status: Former Smoker Hx Alcohol Use: No Hx Substance Use: No Allergies/Home Meds Allergies/Adverse Reactions: Allergies No Known Allergies Allergy (Verified 05/22/18 22:41) Home Medications: Home Meds Medication Instructions Recorded Confirmed RX: GlipiZIDE [Glucotrol] 5 mg PO BID 05/23/18 07/26/18 RX: Sitagliptin Phos/Metformin HCl 100 mg PO DAILY 05/23/18 07/26/18 [Janumet Xr 100-1,000 mg Tablet] Review of Systems - Physician Review All systems were reviewed & negative as marked: Yes - Review of Systems Constitutional: Other (Not responding appropriately). absent: Fevers Respiratory: absent: SOB Cardiovascular: absent: Chest Pain Gastrointestinal: absent: Abdominal Pain, Diarrhea, Nausea, Vomiting Genitourinary Female: absent: Urine Output Changes Musculoskeletal: absent: Back Pain, Neck Pain Neurological: absent: Headache, Dizziness Physical Exam Vital Signs Reviewed: Yes Vital Signs Temp Pulse Resp BP 10/12/18 05:52 98.0 F 128 H 22 102/57 L Temperature: Afebrile Blood Pressure: Hypotensive Pulse: Tachycardic Respiratory Rate: Normal Appearance: Positive for: Well-Appearing, Non-Toxic, Comfortable Pain Distress: None Finger Stick Blood Glucose: 112 - Systems Exam Head: Present: Atraumatic, Normocephalic Pupils: Present: PERRL Extroacular Muscles: Present: EOMI Conjunctiva: Present: Normal Mouth: Present: Other (coughing up yellowish discharge, foul smelling) Pharnyx: No: ERYTHEMA, TONSILS ENLARGED, Uvular Deviation Nose (External): Present: Atraumatic. No: Abrasion Nose (Internal): Present: Normal Inspection Neck: Present: Normal Range of Motion. No: Meningeal Signs Respiratory/Chest: Present: Rhonchi (b/l). No: Accessory Muscle Use Cardiovascular: Present: Normal S1, S2, Tachycardic. No: Murmurs Abdomen: No: Tenderness, Distention, Peritoneal Signs Back: Present: Normal Inspection. No: CVA Tenderness Upper Extremity: Present: Normal Inspection. No: Cyanosis, Edema Lower Extremity: Present: Normal Inspection. No: Edema Neurological: Present: Speech Normal, Motor Func Grossly Intact. No: GCS=15 (GCS= 13) Skin: Present: Dry, Normal Color. No: Rashes Psychiatric: Present: Oriented x 3 (when aroused) Medical Decision Making ED Course and Treatment: 10/12/18 05:58 Impression: A 63 year old female is brought into the emergency department via EMS for further evaluation after family stated she was not responding appropriately. No slurred speech or unilateral weakness per EMS. On Exam pt withdrawals all 4 extremities w/ pain stimuli. Pt arousable, and oriented when arousable however with mucus cough and tired. No signs of accessory muscle usage. Likely Sepsis w/ PNA. No meningeal signs. Abd non-TTP. No CVAT. No spinal tenderness. Plan: -- labs, imaging, admission Prior Visits: Notes and results from previous visits were reviewed. Progress Notes: 10/12/18 06:13 Pt on Non-rebreather w/ o2, and aggresively suctioning secreations. Pupils 2mm- 0.4 mg narcan given without much effect Worsening cough, sat mid 90's. 10/12/18 06:20 Given narcan previously without much effect: Pt was noted to be increasingly cou ghing more secretions, yellowish phlegm as well as desatting into the 90s. Despite aggressive suction as well as Non-Rebreather Face mask w/ o2 pt was noted to satting at best in the low 90s. Given non-protecting airway, sepsis and worsening secretions, pt was intubated. 10/12/18 06:30 Appreciate consult w/ Dr. Coppola: accepts to ICU Appreciate consult w/ Dr. Otto covering to Dr. Le: To Admit to Dr. Le's service 10/12/18 06:40 hemodynamic stable, no need for sepsis bolus of 30cc/kg at this time. abx ordered Vanc, Zosyn, as well as aspiration coverage- clinda. - Lab Interpretations I have reviewed the lab results: Yes - EKG Interpretation Interpreted by ED Physician: Yes Type: 12 lead EKG Procedures - Intubation Time of Intubation: 06:20 Intubation Method: orotracheal Tube Size (cm): 7.5 Medications: Succinylcholine (Etomidagte followed by Succinylcholine) Breath Sounds after Intubation: equal Intubation Complications: no complications Post Intubation Xray: Yes (Within trachea) Progress/Xray Impression: ett within trachea - Scribe Statement The provider has reviewed the documentation as recorded by the Gueroibe Tasneem Sauceda Provider Scribe Attestation: All medical record entries made by the Scribe were at my direction and personally dictated by me. I have reviewed the chart and agree that the record accurately reflects my personal performance of the history, physical exam, medical decision making, and the department course for this patient. I have also personally directed, reviewed, and agree with the discharge instructions and disposition. Disposition/Present on Arrival - Present on Arrival Any Indicators Present on Arrival: No History of DVT/PE: No History of Uncontrolled Diabetes: No Urinary Catheter: Yes History Surgical Site Infection Following: None - Disposition Have Diagnosis and Disposition been Completed?: Yes Diagnosis: Sepsis, Pneumonia Disposition: HOSPITALIZED Disposition Time: 06:40 Condition: SERIOUS
[2018-10-12 06:01] VITALS: BMI 31.7
[2018-10-12] MEDS ORDERED: Succinylcholine 200 mg/10 ml Inj IV ONE (06:10)
[2018-10-12] MEDS ORDERED: Etomidate 20 mg/10ml Inj IV ONE (06:10)
[2018-10-12] MEDS ORDERED: Fentanyl 1000mcg/100ml NS 1,000 MCG/100 ML BAG IV PRN (06:27)
[2018-10-12] MEDS ORDERED: Vancomycin 1gm in NS 250ml 1 GM/250 ML BAG IVPB STA (06:28)
[2018-10-12] MEDS ORDERED: Piperacillin/Tazobact 3.375 gm 100 ML IVPB STA (06:28)
[2018-10-12] MEDS ORDERED: Sodium Chloride 0.9% 1,000 ML IV STA ×2 (06:29→06:40)
[2018-10-12] MEDS: Midazolam 2 MG/2 ML VIAL IVP STA (06:30)
[2018-10-12 06:33] LABS: VENOUS BLOOD GAS BASE EXCESS -5.4 mmol/L (0.0-2.0); VENOUS BLOOD GAS PO2 30 mm/Hg (30-55)
[2018-10-12] MEDS ORDERED: Clindamycin 600mg/50ml D5W 600 MG/50 ML VIAL IVPB STA (06:34)
[2018-10-12 06:37] LABS: ARTERIAL BLOOD GAS HCO3 22.4 mmol/L (21-28); ARTERIAL BLOOD GAS HEMOGLOBIN 11.9 g/dL (11.7-17.4); ARTERIAL BLOOD GAS O2 CAPACITY 16.1 mL/dl (16-24); ARTERIAL BLOOD GAS O2 CONTENT 15.8 ML/dl (15-23); ARTERIAL BLOOD GAS O2 SAT 98.4 % (95-98); ARTERIAL BLOOD GAS PCO2 56 mm/Hg (35-45); ARTERIAL BLOOD GAS TCO2 24.1 mmol.L (22-28)
[2018-10-12 06:37] LABS: VENOUS BLOOD PH 7.12 (7.32-7.43)
[2018-10-12 06:40] LABS: BASO # 0.02 K/mm3 (0.0-2.0); BASO % 0.2 % (0.0-3.0); EOS % 0.1 % (1.5-5.0); GRAN # 6.9 (1.4-6.5); GRAN % 77.3 % (50.0-68.0); LYMPH % 10.7 % (22.0-35.0); MEAN CELL VOLUME 90.8 fl (80.0-105.0); MEAN CORPUSCULAR HEMOGLOBIN 27.2 pg (25.0-35.0); MEAN PLATELET VOLUME 9.6 fl (7.0-11.0); MONO % 11.7 % (1.0-6.0); RBC 4.37 10^6/uL (3.5-6.1); RED CELL DISTRIBUTION WIDTH 16.6 % (11.5-14.5); WHITE BLOOD COUNT 8.9 10^3/uL (4.5-11.0)
[2018-10-12 06:47] LABS: ALBUMIN 3.9 g/dL (3.0-4.8); ALT/SGPT 17 U/L (7-56); AST/SGOT 26 U/L (14-36); BLOOD UREA NITROGEN 23 mg/dL (7-21); CALCIUM 9.1 mg/dL (8.4-10.5); GFR NON-AFRICAN AMERICAN 24
[2018-10-12 06:58] LABS: ARTERIAL BLOOD GAS PH 7.21 (7.35-7.45)
[2018-10-12 06:58] LABS: URINE BILIRUBIN NEGATIVE (NEGATIVE); URINE BLOOD SMALL (NEGATIVE); URINE GLUCOSE (UA) NEGATIVE (NEGATIVE); URINE LEUKOCYTE ESTERASE SMALL Leu/uL (NEGATIVE); URINE PROTEIN 30 mg/dL (<30 mg/dL); URINE UROBILINOGEN 0.2 E.U./dL (<1 E.U./dL)
[2018-10-12 06:59] LABS: TROPONIN I < 0.01 ng/mL
[2018-10-12 07:00] LABS: URINE APPEARANCE SL CLOUDY (CLEAR)
[2018-10-12 07:01] LABS: URINE COLOR YELLOW (YELLOW)
[2018-10-12 07:01] LABS: HEMOGLOBIN 11.9 g/dL (12.0-16.0)
[2018-10-12 07:06] LABS: URINE BACTERIA MANY /hpf; URINE EPITHELIAL CELLS 0 - 2 /hpf (0-5); URINE RBC 0 - 2 /hpf (0-2)
--- NOTE | 2018-10-12 07:34 | CP.PCM.CON ---
<Saavedra,Homero - Last Filed: 10/12/18 11:37> History of Present Illness - History of Present Illness History of Present Illness: Homero Saavedra Internal Medicine Resident- Consult Note on Behalf of Critical Care Team Subjective: Patient is a 63 y/o female with PMHx of obesity, DM, htn, opioid abuse, chronic back pain who was admitted for evaluation and treatment of altered mental status suspicious of drug overdose. As per records the patient's family noted that she was not behaving at baseline and activated EMS. Patient was found to be septic and in respiratory distress. Patient was intubated in the ED for airway protection. ICU team was consulted for vent management. Patient seen and examined at bedside. No acute events since admission. Further subjective data cannot be ascertained at this time. 12 point ROS cannot be ascertained at this time due to altered mental status PMHx: obesity, DM, htn, opioid abuse, chornic back pain PSHx: lumbar and cervical spine surgeries years ago FMHx: unknown Social: current tobacco, deneis alcohol, deneis ilicit drug use, takes prescrbed opioid and benzo. Allergis: NKDA Home meds: please see MAR Physical Examination: - Constitutional Appears: No Acute Distress - Head Exam Head Exam: ATRAUMATIC, NORMAL INSPECTION, NORMOCEPHALIC - Eye Exam Eye Exam: sluggish pupillary reflex bilaterally - ENT Exam ENT Exam: Mucous Membranes Dry, ETT in secure position - Neck Exam Neck exam: Positive for: Normal Inspection - Respiratory Exam Respiratory Exam: Clear to Auscultation Bilateral, NORMAL BREATHING PATTERN - Cardiovascular Exam Cardiovascular Exam: Tachycardic, regular rhythm, +S1, +S2. absent: Gallop, JVD, Rubs - GI/Abdominal Exam GI & Abdominal Exam: Normal Bowel Sounds, Soft. absent: Tenderness - Neurological Exam Neurological exam: Altered mental status, GCS 3T, grimaces to sternal rub - Skin Skin Exam: lace like erythematous rash bilateral lower extremities Assessment and Plan: Patient is a 63 y/o female with PMHx of obesity, DM, htn, opoid abuse, chronic back pain who was admitted for evaluation and treatment of altered mental status suspicious of drug overdose. Patient is admitted to ICU for management of respiratory failure on vent. Neuro Acute Encephalopathy, AMS - rule out metabolic vs toxic etiology - GCS3T - 10/12/2018 CT head without contrast- No acute intracranial findings - UDS ordered and pending Cardiovascular: Hx of HTN - hold home antihypertensives - maintain MAP> 65mmHg Respiratory: Hypercapnic Respiratory Failure - intubated - continue ventilation support- PRVC TV400 RR20 FiO50 PEEP5 - sedated- continue fentanyl drip @ 20mcg/hr for sedation - weaning trial and sedation vacation daily - abg- respiratory acidosis without compensation - repeat abg in AM Suspected COPD - started on solumedrol 40mg q8h ID Sepsis, Aspiration Pneumonia - given vancomycin, zosyn, and clindamycin in ED - continue vancomycin - started on meropenem - lactate cleared - procalcitonin ordered and pending - continue IVF NS@ 100cc/hr - ID consulted- appreciate recommendations UTI - started on meropenem - ID consulted- appreciate recommendations GI PPX - protonix 40mg IV daily Heme Anemia - normocytic - stable 11.9 - monitor closely via daily cbc DVT Ppx - SCD Patient case discussed with and plan approved by attending physician, Dr. Stroud. Past Patient History - Past Social History Smoking Status: Former Smoker - CARDIAC Hx Hypertension: Yes - PULMONARY Hx Respiratory Disorders: No - NEUROLOGICAL Hx Neurological Disorder: No - HEENT Hx HEENT Problems: Yes Hx Cataracts: Yes (with surgery) - RENAL Hx Chronic Kidney Disease: No - ENDOCRINE/METABOLIC Hx Diabetes Mellitus Type 2: Yes - HEMATOLOGICAL/ONCOLOGICAL Hx Blood Disorders: No - INTEGUMENTARY Hx Dermatological Problems: Yes (L great toe bullae) - MUSCULOSKELETAL/RHEUMATOLOGICAL Hx Arthritis: Yes - GASTROINTESTINAL Hx Gastrointestinal Disorders: No - GENITOURINARY/GYNECOLOGICAL Hx Genitourinary Disorders: No - PSYCHIATRIC Hx Anxiety: Yes Hx Depression: No Hx Emotional Abuse: No Hx Physical Abuse: No Hx Substance Use: No - SURGICAL HISTORY Other/Comment: neck surgery - ANESTHESIA Hx Anesthesia: Yes Hx Anesthesia Reactions: No Hx Malignant Hyperthermia: No Meds Allergies/Adverse Reactions: Allergies Allergy/AdvReac Type Severity Reaction Status Date / Time No Known Allergies Allergy Verified 05/22/18 22:41 - Medications Medications: Current Medications Fentanyl Citrate (Fentanyl Citrate/Sodium Chloride 1 Mg/100 Ml) 1,000 mcg in 100 mls @ 2 mls/hr IV .Q24H PRN; Protocol PRN Reason: TITRATE PER MD ORDER Last Admin: 10/12/18 06:58 Dose: 2 mls/hr Vancomycin HCl (Vancomycin 1gm) 1 gm in 250 mls @ 167 mls/hr IVPB STAT STA; Protocol Stop: 10/12/18 07:57 Sodium Chloride (Sodium Chloride 0.9%) 1,000 mls @ 999 mls/hr IV .Q1H1M STA Stop: 10/12/18 07:40 Last Admin: 10/12/18 06:58 Dose: 999 mls/hr Meropenem/Sodium Chloride (Merrem Iv 500 Mg/Ns 50 Ml) 500 mg in 50 mls @ 100 mls/hr IVPB Q12 TOMMIE; Protocol Vancomycin HCl (Vancomycin 1gm) 1 gm in 250 mls @ 167 mls/hr IVPB Q12H TOMMEI; Protocol Results - Vital Signs Recent Vital Signs: Last Vital Signs Temp 100 F H 10/12/18 06:38 Pulse 121 H 10/12/18 06:38 Resp 25 H 10/12/18 06:38 BP 139/99 H 10/12/18 06:38 Pulse Ox 100 10/12/18 06:38 - Labs Result Diagrams: 10/12/18 05:50 10/12/18 05:50 Labs: Laboratory Results - last 24 hr 10/12/18 10/12/18 10/12/18 05:49 05:50 05:50 WBC 8.9 RBC 4.37 Hgb 11.9 L D Hct 39.7 MCV 90.8 MCH 27.2 MCHC 30.0 L RDW 16.6 H Plt Count 327 MPV 9.6 Gran % 77.3 H Lymph % (Auto) 10.7 L [place] % (Auto) 11.7 H Eos % (Auto) 0.1 L Baso % (Auto) 0.2 Gran # 6.90 H Lymph # (Auto) 1.0 L [place] # (Auto) 1.0 H Eos # (Auto) 0.0 Baso # (Auto) 0.02 pCO2 pO2 HCO3 ABG pH ABG Total CO2 ABG O2 Saturation ABG O2 Content ABG Base Excess ABG Hemoglobin ABG Carboxyhemoglobin POC ABG HHb (Measured) ABG Methemoglobin ABG O2 Capacity VBG pH VBG pCO2 VBG HCO3 VBG Total CO2 VBG O2 Sat (Calc) VBG Base Excess VBG Potassium Hgb O2 Saturation Sodium 143 Chloride 105 Glucose Lactate FiO2 Potassium 4.3 Carbon Dioxide 26 Anion Gap 16 BUN 23 H Creatinine 2.1 H Est GFR ( Amer) 29 Est GFR (Non-Af Amer) 24 POC Glucose (mg/dL) 112 H Random Glucose 122 H Calcium 9.1 Magnesium 2.2 Total Bilirubin 0.8 AST 26 ALT 17 Alkaline Phosphatase 134 H D Troponin I < 0.01 Total Protein 7.9 Albumin 3.9 Globulin 4.0 Albumin/Globulin Ratio 1.0 L Venous Blood Potassium Urine Color Urine Appearance Urine pH Ur Specific [place] Urine Protein Urine Glucose (UA) Urine Ketones Urine Blood Urine Nitrate Urine Bilirubin Urine Urobilinogen Ur Leukocyte Esterase Urine RBC Urine WBC Ur Epithelial Cells Urine Bacteria 10/12/18 10/12/18 10/12/18 05:50 06:20 06:30 WBC RBC Hgb Hct MCV MCH MCHC RDW Plt Count MPV Gran % Lymph % (Auto) [place] % (Auto) Eos % (Auto) Baso % (Auto) Gran # Lymph # (Auto) [place] # (Auto) Eos # (Auto) Baso # (Auto) pCO2 56 H pO2 30 103.0 H HCO3 22.4 ABG pH 7.21 L ABG Total CO2 24.1 ABG O2 Saturation 98.4 H ABG O2 Content 15.8 ABG Base Excess -5.9 L ABG Hemoglobin 11.9 ABG Carboxyhemoglobin 3.9 H POC ABG HHb (Measured) 1.5 ABG Methemoglobin 1.0 ABG O2 Capacity 16.1 VBG pH 7.12 L* VBG pCO2 79.0 H* VBG HCO3 25.7 VBG Total CO2 28.1 H VBG O2 Sat (Calc) 54.5 VBG Base Excess -5.4 L VBG Potassium 4.3 Hgb O2 Saturation 93.6 L Sodium 142.0 Chloride 104.0 Glucose 117 H Lactate 3.0 H FiO2 21.0 100.0 Potassium Carbon Dioxide Anion Gap BUN Creatinine Est GFR ( Amer) Est GFR (Non-Af Amer) POC Glucose (mg/dL) Random Glucose Calcium Magnesium Total Bilirubin AST ALT Alkaline Phosphatase Troponin I Total Protein Albumin Globulin Albumin/Globulin Ratio Venous Blood Potassium 4.3 Urine Color Yellow Urine Appearance Sl cloudy Urine pH 6.0 Ur Specific [place] 1.025 Urine Protein 30 H Urine Glucose (UA) Negative Urine Ketones Negative Urine Blood Small H Urine Nitrate Positive H Urine Bilirubin Negative Urine Urobilinogen 0.2 Ur Leukocyte Esterase Small H Urine RBC 0 - 2 Urine WBC 2 - 5 Ur Epithelial Cells 0 - 2 Urine Bacteria Many <Lance Stroud - Last Filed: 10/12/18 12:55> Meds - Medications Medications: Current Medications Fentanyl Citrate (Fentanyl Citrate/Sodium Chloride 1 Mg/100 Ml) 1,000 mcg in 100 mls @ 2 mls/hr IV .Q24H PRN; Protocol PRN Reason: TITRATE PER MD ORDER Last Admin: 10/12/18 06:58 Dose: 2 mls/hr Meropenem/Sodium Chloride (Merrem Iv 500 Mg/Ns 50 Ml) 500 mg in 50 mls @ 100 mls/hr IVPB Q12 TOMMIE; Protocol Vancomycin HCl (Vancomycin 1gm) 1 gm in 250 mls @ 167 mls/hr IVPB Q12H TOMMIE; Protocol Sodium Chloride (Sodium Chloride 0.9%) 1,000 mls @ 100 mls/hr IV .Q10H TOMMIE Insulin Human Lispro (Humalog Med) 0 units SC ACHS TOMMIE; Protocol Methylprednisolone (Solu-Medrol) 40 mg IVP Q8H TOMMIE Pantoprazole Sodium (Protonix Inj) 40 mg IVP DAILY TOMMIE Results - Vital Signs Recent Vital Signs: Last Vital Signs Temp 100.7 F H 10/12/18 08:15 Pulse 119 H 10/12/18 11:47 Resp 25 H 10/12/18 11:47 BP 130/79 10/12/18 11:00 Pulse Ox 96 10/12/18 11:47 - Labs Result Diagrams: 10/12/18 05:50 10/12/18 05:50 Labs: Laboratory Results - last 24 hr 10/12/18 10/12/18 10/12/18 05:49 05:50 05:50 WBC 8.9 RBC 4.37 Hgb 11.9 L D Hct 39.7 MCV 90.8 MCH 27.2 MCHC 30.0 L RDW 16.6 H Plt Count 327 MPV 9.6 Gran % 77.3 H Lymph % (Auto) 10.7 L [place] % (Auto) 11.7 H Eos % (Auto) 0.1 L Baso % (Auto) 0.2 Gran # 6.90 H Lymph # (Auto) 1.0 L [place] # (Auto) 1.0 H Eos # (Auto) 0.0 Baso # (Auto) 0.02 pCO2 pO2 HCO3 ABG pH ABG Total CO2 ABG O2 Saturation ABG O2 Content ABG Base Excess ABG Hemoglobin ABG Carboxyhemoglobin POC ABG HHb (Measured) ABG Methemoglobin ABG O2 Capacity ABG Potassium VBG pH VBG pCO2 VBG HCO3 VBG Total CO2 VBG O2 Sat (Calc) VBG Base Excess VBG Potassium Hgb O2 Saturation Sodium 143 Chloride 105 Glucose Lactate Mechanical Rate FiO2 Tidal Volume PEEP Potassium 4.3 Carbon Dioxide 26 Anion Gap 16 BUN 23 H Creatinine 2.1 H Est GFR ( Amer) 29 Est GFR (Non-Af Amer) 24 POC Glucose (mg/dL) 112 H Random Glucose 122 H Calcium 9.1 Magnesium 2.2 Total Bilirubin 0.8 AST 26 ALT 17 Alkaline Phosphatase 134 H D Troponin I < 0.01 Total Protein 7.9 Albumin 3.9 Globulin 4.0 Albumin/Globulin Ratio 1.0 L Arterial Blood Potassium Venous Blood Potassium Urine Color Urine Appearance Urine pH Ur Specific [place] Urine Protein Urine Glucose (UA) Urine Ketones Urine Blood Urine Nitrate Urine Bilirubin Urine Urobilinogen Ur Leukocyte Esterase Urine RBC Urine WBC Ur Epithelial Cells Urine Bacteria Urine Opiates Screen Urine Methadone Screen Ur Barbiturates Screen Ur Phencyclidine Scrn Ur Amphetamines Screen U Benzodiazepines Scrn U Oth Cocaine Metabols U Cannabinoids Screen 10/12/18 10/12/18 10/12/18 05:50 06:20 06:30 WBC RBC Hgb Hct MCV MCH MCHC RDW Plt Count MPV Gran % Lymph % (Auto) [place] % (Auto) Eos % (Auto) Baso % (Auto) Gran # Lymph # (Auto) [place] # (Auto) Eos # (Auto) Baso # (Auto) pCO2 56 H pO2 30 103.0 H HCO3 22.4 ABG pH 7.21 L ABG Total CO2 24.1 ABG O2 Saturation 98.4 H ABG O2 Content 15.8 ABG Base Excess -5.9 L ABG Hemoglobin 11.9 ABG Carboxyhemoglobin 3.9 H POC ABG HHb (Measured) 1.5 ABG Methemoglobin 1.0 ABG O2 Capacity 16.1 ABG Potassium VBG pH 7.12 L* VBG pCO2 79.0 H* VBG HCO3 25.7 VBG Total CO2 28.1 H VBG O2 Sat (Calc) 54.5 VBG Base Excess -5.4 L VBG Potassium 4.3 Hgb O2 Saturation 93.6 L Sodium 142.0 Chloride 104.0 Glucose 117 H Lactate 3.0 H Mechanical Rate FiO2 21.0 100.0 Tidal Volume PEEP Potassium Carbon Dioxide Anion Gap BUN Creatinine Est GFR ( Amer) Est GFR (Non-Af Amer) POC Glucose (mg/dL) Random Glucose Calcium Magnesium Total Bilirubin AST ALT Alkaline Phosphatase Troponin I Total Protein Albumin Globulin Albumin/Globulin Ratio Arterial Blood Potassium Venous Blood Potassium 4.3 Urine Color Yellow Urine Appearance Sl cloudy Urine pH 6.0 Ur Specific [place] 1.025 Urine Protein 30 H Urine Glucose (UA) Negative Urine Ketones Negative Urine Blood Small H Urine Nitrate Positive H Urine Bilirubin Negative Urine Urobilinogen 0.2 Ur Leukocyte Esterase Small H Urine RBC 0 - 2 Urine WBC 2 - 5 Ur Epithelial Cells 0 - 2 Urine Bacteria Many Urine Opiates Screen Urine Methadone Screen Ur Barbiturates Screen Ur Phencyclidine Scrn Ur Amphetamines Screen U Benzodiazepines Scrn U Oth Cocaine Metabols U Cannabinoids Screen 10/12/18 10/12/18 07:45 11:46 WBC RBC Hgb Hct MCV MCH MCHC RDW Plt Count MPV Gran % Lymph % (Auto) [place] % (Auto) Eos % (Auto) Baso % (Auto) Gran # Lymph # (Auto) [place] # (Auto) Eos # (Auto) Baso # (Auto) pCO2 56 H pO2 252.0 H HCO3 20.4 L ABG pH 7.17 L* ABG Total CO2 22.1 ABG O2 Saturation 99.7 H ABG O2 Content ABG Base Excess -8.6 L ABG Hemoglobin ABG Carboxyhemoglobin POC ABG HHb (Measured) ABG Methemoglobin ABG O2 Capacity ABG Potassium 3.5 L VBG pH VBG pCO2 VBG HCO3 VBG Total CO2 VBG O2 Sat (Calc) VBG Base Excess VBG Potassium Hgb O2 Saturation Sodium 142.0 Chloride 112.0 H Glucose 116 H Lactate 1.3 Mechanical Rate 18 FiO2 100.0 Tidal Volume 400 PEEP 10 Potassium Carbon Dioxide Anion Gap BUN Creatinine Est GFR ( Amer) Est GFR (Non-Af Amer) POC Glucose (mg/dL) Random Glucose Calcium Magnesium Total Bilirubin AST ALT Alkaline Phosphatase Troponin I Total Protein Albumin Globulin Albumin/Globulin Ratio Arterial Blood Potassium 3.5 L Venous Blood Potassium Urine Color Urine Appearance Urine pH Ur Specific [place] Urine Protein Urine Glucose (UA) Urine Ketones Urine Blood Urine Nitrate Urine Bilirubin Urine Urobilinogen Ur Leukocyte Esterase Urine RBC Urine WBC Ur Epithelial Cells Urine Bacteria Urine Opiates Screen Positive H Urine Methadone Screen Negative Ur Barbiturates Screen Negative Ur Phencyclidine Scrn Negative Ur Amphetamines Screen Negative U Benzodiazepines Scrn Positive H U Oth Cocaine Metabols Negative U Cannabinoids Screen Negative Assessment & Plan - Assessment and Plan (Free Text) Assessment: Patient seen and examined on rounds, with resident, agree with note with following additions/exceptions: Patient is 63yo female with PMHx of obesity, DM, htn, opioid abuse, chronic back pain who was admitted for altered mental status suspicious of opioid drug overdose. Patient was unable to protect airway in the ER, copious amount of thick secretions, subsequently intubated. Currently afebrile, BP stable, comfortable on sedation, in NAD, ABG with resp acidosis, adaquate oxygenation, CT head pending CXR with RLL infiltrate Obesity DM HTN Chronic Opioid abuse rule out CVA Hypercapnic resp failure Recommend: - cont with vent support, low tidal vol ventilation, titrate down FiO2 - panculture, UCx, BCx, check Procal, sputum culture, Urine Lg, Strep, obtain ID consult - Chris Tee - BP control - FS control - obtain CT head out contrast - monitor LFTs - NPO - GI ppx - DVT ppx - Admit to MICU Critical care time 35 minutes
[2018-10-12 07:53] LABS: ARTERIAL BLOOD GAS HCO3 20.4 mmol/L (21-28); ARTERIAL BLOOD GAS O2 SAT 99.7 % (95-98); ARTERIAL BLOOD GAS PCO2 56 mm/Hg (35-45); ARTERIAL BLOOD GAS TCO2 22.1 mmol.L (22-28)
[2018-10-12 07:55] LABS: ARTERIAL BLOOD GAS PH 7.17 (7.35-7.45)
[2018-10-12] MEDS: Sodium Chloride 0.9% 1,000 ML IV SCH ×2 (08:30→21:34)
--- NOTE | 2018-10-12 09:01 | RAD ---
Date of service: 10/12/2018 HISTORY: weak COMPARISON: 07/28/2018 FINDINGS: LUNGS: There is an infiltrate at the right lung base. The patient is rotated to the right PLEURA: No significant pleural effusion identified, no pneumothorax apparent. CARDIOVASCULAR: No aortic atherosclerotic calcification present. Normal cardiac size. No pulmonary vascular congestion. OSSEOUS STRUCTURES: No significant abnormalities. VISUALIZED UPPER ABDOMEN: Normal. OTHER FINDINGS: None. IMPRESSION: Right lower lobe infiltrate
--- NOTE | 2018-10-12 10:00 | CT ---
Date of service: 10/12/2018 PROCEDURE: CT HEAD WITHOUT CONTRAST. HISTORY: weak COMPARISON: 07/26/2018 TECHNIQUE: Axial computed tomography images were obtained through the head/brain without intravenous contrast. Radiation dose: Total exam DLP = 1028.82 mGy-cm. This CT exam was performed using one or more of the following dose reduction techniques: Automated exposure control, adjustment of the mA and/or kV according to patient size, and/or use of iterative reconstruction technique. FINDINGS: HEMORRHAGE: No intracranial hemorrhage. BRAIN: No mass effect or edema. No atrophy or chronic microvascular ischemic changes. VENTRICLES: Unremarkable. No hydrocephalus. CALVARIUM: Unremarkable. PARANASAL SINUSES: Unremarkable as visualized. No significant inflammatory changes. MASTOID AIR CELLS: Unremarkable as visualized. No inflammatory changes. OTHER FINDINGS: None. IMPRESSION: No acute intracranial findings
[2018-10-12 12:48] LABS: BARBITURATES, UR NEGATIVE (NEGATIVE); BENZODIAZEPINES, UR POSITIVE (NEGATIVE); OPIATES, UR POSITIVE (NEGATIVE); PHENCYCLIDINE, UR NEGATIVE (NEGATIVE)
--- NOTE | 2018-10-12 13:43 | PCM.SEPTIC ---
Sepsis Progress Note - Reassessment Type Date of Evaluation: 10/12/18 Time of Evaluation: 13:00 Reassessment Type: Non-invasive reassessment - Non Invasive Reassessment Were the most recent vital sign reviewed: Yes Vital Sign (Latest): Temp Pulse Resp BP Pulse Ox 100.7 F H 119 H 25 H 130/79 96 10/12/18 08:15 10/12/18 11:47 10/12/18 11:47 10/12/18 11:00 10/12/18 11:47 Cardiovascular: Yes: Regular Rate, Rhythm, Chest Non Tender. No: JVD, Murmur Respiratory: Yes: Normal Breath Sounds Capillary Refill: Delayed Pulses: Decreased Dorsalis Pedis, Decreased Posterior Tibialis Skin: Pale
[2018-10-12] MEDS: Meropenem IV 1 gm in NS 1 GM/50 ML BAG IVPB SCH ×2 (15:10→21:34)
[2018-10-12] MEDS: MethylPREDNISolone 40 mg Vial IVP SCH ×2 (15:10→21:37)
[2018-10-12] MEDS: Linezolid 600 mg in D5W 300 ml 600 MG/300 ML BAG IVPB SCH (15:10)
[2018-10-12] MEDS: Insulin Lispro (humaLOG) MEDIUM Coverage SC SCH (17:41)
[2018-10-12] MEDS ORDERED: MEROPENEM 500 MG in NS 500 MG/50 ML BAG IVPB SCH (19:00)
[2018-10-12] MEDS ORDERED: Vancomycin 1gm in NS 250ml 1 GM/250 ML BAG IVPB SCH (19:00)
--- NOTE | 2018-10-12 20:01 | CON ---
DATE OF CONSULTATION: 10/12/2018 The patient is in bed, was seen earlier today in Room 128, Bed 2. CHIEF COMPLAINT: Change in mental status x1 day. 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 Infectious Disease consultation called because she had a temperature of 100.7. The patient does have opioid abuse in the past for chronic back pain. PAST MEDICAL HISTORY: Significant for obesity, BMI of 31, hypertension, Graves' disease, diabetes, chronic back pain and anxiety. PAST SURGICAL HISTORY: Significant for back surgery, tonsillectomy, , neck surgery and cataract surgery. MEDICATIONS AT HOME: Metformin, oxycodone, MS Contin, glipizide and Xanax. ALLERGIES: THE PATIENT HAS NO KNOWN ALLERGIES TO ANY ANTIBIOTICS. REVIEW OF SYSTEMS: The patient had a 14-point review of systems performed. There has been fevers with change in mental status. The patient is intubated. There has been no abdominal pain reported and the patient was fine until this acute event. PHYSICAL EXAMINATION: GENERAL: The patient is in bed, intubated on a ventilator. VITAL SIGNS: Temperature of 100.7, heart rate of 120, respiratory rate of 26, and the patient is on mechanical ventilation with a blood pressure of 130/70. HEENT: ET tube in place. NECK: Supple. LUNGS: Decreased breath sounds. HEART: Normal S1 and S2. ABDOMEN: Soft, nontender. No organomegaly. No rebound or guarding. No masses. LABORATORY EXAMINATION: Reveals the patient's white count to be 8.9 and hemoglobin 11. Chemistries reveal a BUN of 23 and creatinine of 2.1. The patient's creatinine was 1. Urinalysis is 2-5 wbc's, many bacteria. Toxicology reveals positive opiates and positive benzodiazepines. Microbiology is pending. Chest x-ray reveals the patient had an infiltrate in the right lung base. The patient also had a CAT scan of the head, which has reported no acute changes. 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 The creatinine has changed from 1.0 to 2.1. Discontinue the vancomycin. We will discontinue the clindamycin and use Zyvox and meropenem, pending blood culture, urine culture, sputum culture, MRSA screen, procalcitonin and initial workup results. We will follow closely with you. Case discussed with staff. Doug Pollard MD
--- NOTE | 2018-10-12 20:57 | CARD ---
APPROVED REPORT Date of service: 10/12/2018 EKG Measurement Heart [id number] <Conclusion> Sinus tachycardia Incomplete right bundle branch block Borderline ECG
--- NOTE | 2018-10-12 23:03 | HP ---
DATE OF EXAM: 10/12/2018 HISTORY OF PRESENT ILLNESS: The patient is 63 years old. The patient is intubated, unable to get any history; however, ER notes and Critical Care notes reviewed and appreciated. Family called ambulance when they noted that her mental status is altered and there was a suspicion that she might have overdosed on her pain medication and she was found to be short of breath. When she was brought to emergency room, she was sound to be septic and so she was intubated in the emergency room for airway protection. PAST MEDICAL HISTORY: Significant for; 1. Being overweight. 2. Chronic back pain. 3. Opiate dependence. 4. Hypertension. 5. Ocu-cqqouaw-tltawnoga diabetes. PAST SURGICAL HISTORY: Significant for lumbar and cervical spine. SOCIAL HISTORY: She actively smokes and does not drink alcohol. However, she does take prescription of opioid and benzodiazepines. ALLERGIES: SHE IS NOT ALLERGIC TO ANY MEDICATIONS. HOME MEDICATION: She is on Janumet, oxycodone 30 mg q.i.d., morphine sulfate 60 mg three times a day, Glucotrol 5 mg twice a day, Vantin 100 mg twice a day, and Xanax 1 mg twice a day. PHYSICAL EXAMINATION: GENERAL: The patient is on vent, sedated. VITAL SIGNS: The patient is afebrile. Pulse 119, respirations 25 and blood pressure 160/79. She had temperature of 100.7 earlier this morning. LUNGS: Bilateral fair airflow. No rhonchi or crackle. HEART: S1 and S2, audible. ABDOMEN: Soft, obese and nontender. No rebound. No guarding. NEUROLOGICAL: The patient is awake, alert, oriented and communicative. LABORATORY EXAM: WBC 8.9, hemoglobin 11.9, hematocrit 39.7 and platelet 327. Chemistry; sodium 143, potassium 4.3, chloride 105, CO2 of 26, BUN , creatinine 2 and blood sugar of 122. Urine shows positive nitrites and small leukocyte. Urine tox is pending. ASSESSMENT: 1. Altered mental status secondary to narcotic overuse and abuse. 2. Chronic back pain. 3. Hypertension. 4. Syb-jxgjzog-kbbzwqvvh diabetes. 5. Degenerative disk disease. PLAN: Currently, the patient is on vent support. We will monitor blood sugar with insulin coverage as needed, and currently, she is on meropenem, she is on Protonix, she is on vancomycin. We will follow up CBC and CMP in a.m. We will reevaluate the patient in a.m. Teri Le MD
[2018-10-13] MEDS: MethylPREDNISolone 40 mg Vial IVP SCH ×3 (02:00→21:23)
[2018-10-13] MEDS: Insulin Lispro (humaLOG) MEDIUM Coverage SC SCH ×5 (03:39→22:00)
[2018-10-13 04:43] LABS: ARTERIAL BLOOD GAS HCO3 14.1 mmol/L (21-28); ARTERIAL BLOOD GAS HEMOGLOBIN 7.2 g/dL (11.7-17.4); ARTERIAL BLOOD GAS O2 CAPACITY 10.3 mL/dl (16-24); ARTERIAL BLOOD GAS O2 CONTENT 10.2 ML/dl (15-23); ARTERIAL BLOOD GAS O2 SAT 99.4 % (95-98); ARTERIAL BLOOD GAS PCO2 33 mm/Hg (35-45); ARTERIAL BLOOD GAS PH 7.24 (7.35-7.45); ARTERIAL BLOOD GAS TCO2 15.1 mmol.L (22-28)
[2018-10-13] MEDS ORDERED: Sodium Bicarbonate (8.4%) 50 Meq Syringe IVP ONE (05:28)
[2018-10-13 06:57] LABS: BASO # 0.01 K/mm3 (0.0-2.0); BASO % 0.1 % (0.0-3.0); GRAN # 10.73 (1.4-6.5); GRAN % 87.2 % (50.0-68.0); HEMOGLOBIN 9.9 g/dL (12.0-16.0); LYMPH # 0.8 (1.2-3.4); LYMPH % 6.8 % (22.0-35.0); MEAN CELL VOLUME 88.9 fl (80.0-105.0); MEAN CORPUSCULAR HEMOGLOBIN 26.9 pg (25.0-35.0); MEAN CORPUSCULAR HGB CONC 30.3 g/dl (31.0-37.0); MEAN PLATELET VOLUME 9.6 fl (7.0-11.0); MONO # 0.7 (0.1-0.6); MONO % 5.9 % (1.0-6.0); RBC 3.68 10^6/uL (3.5-6.1); RED CELL DISTRIBUTION WIDTH 16.4 % (11.5-14.5); WHITE BLOOD COUNT 12.3 10^3/uL (4.5-11.0)
[2018-10-13 07:31] LABS: ALB/GLOB RATIO 0.9 (1.1-1.8); ALBUMIN 2.9 g/dL (3.0-4.8); CALCIUM 8.4 mg/dL (8.4-10.5)
--- NOTE | 2018-10-13 09:39 | CP.CCUPN ---
<Homero Saavedra - Last Filed: 10/13/18 10:54> CCU Subjective - Physician Review Subjective (Free Text): Homero Saavedra Internal Medicine Resident- Progress Note on Behalf of Critical Care Team Subjective: Patient seen and examined. Patient self extubated overnight. Remained stable on NC. States she recalls events prior to arriving to hospital. Offers no new complaints at this time. Denies fever, chills, chest pain, SOB, abdominal pain, N/V, diarrhea, constipation, and urinary symptoms. 12 point ROS negative except as indicated in HPI Physical Examination: - Constitutional Appears: No Acute Distress - Head Exam Head Exam: ATRAUMATIC, NORMAL INSPECTION, NORMOCEPHALIC - Eye Exam Eye Exam: SIERRA, EOMI - ENT Exam ENT Exam: Mucous Membranes Moist - Neck Exam Neck exam: Positive for: Normal Inspection - Respiratory Exam Respiratory Exam: Clear to Auscultation Bilateral, NORMAL BREATHING PATTERN - Cardiovascular Exam Cardiovascular Exam: Tachycardic, regular rhythm, +S1, +S2. absent: Gallop, JVD, Rubs - GI/Abdominal Exam GI & Abdominal Exam: Normal Bowel Sounds, Soft. absent: Tenderness - Neurological Exam Neurological exam: Altered mental status, GCS 3T, grimaces to sternal rub - Skin Skin Exam: lace like erythematous rash bilateral lower extremities Assessment and Plan: Patient is a 63 y/o female with PMHx of obesity, DM, htn, opoid abuse, chronic back pain who was admitted for evaluation and treatment of altered mental status suspicious of drug overdose. Patient is admitted to ICU for management of respiratory failure on vent. Neuro Acute Encephalopathy, AMS - resolved GCS [id number] - 10/12/2018 CT head without contrast- No acute intracranial findings Cardiovascular: Hx of HTN - hold home antihypertensives - maintain MAP> 65mmHg Respiratory: Hypercapnic Respiratory Failure - abg in AM improved pH 7.24 from 7.17 Suspected COPD - changed solumedrol 40mg q8h to solumedrol q12h ID Sepsis, Aspiration Pneumonia - given vancomycin, zosyn, and clindamycin in ED - continue meropenem day 2 - started on linezolid day 2 - lactate cleared - procalcitonin- elevated - discontinue IVF NS@ 100cc/hr, start half NS @ 75cc/hr - ID consulted- appreciate recommendations UTI - continue meropenem day 2 - started on linezolid day 2 - ID consulted- appreciate recommendations GI PPX - protonix 40mg IV daily Heme Anemia - normocytic - stable 9.9 at baseline - monitor closely via daily cbc DVT Ppx - SCD Patient case discussed with and plan approved by attending physician, Dr. Stroud. CCU Objective - Vital Signs / Intake & Output Vital Signs (Last 4 hours): Vital Signs Pulse BP Pulse Ox 10/13/18 07:47 103 H 100 10/13/18 07:46 98 H 100 10/13/18 07:45 103 H 100 10/13/18 07:44 104 H 100 10/13/18 07:43 104 H 100 10/13/18 07:42 104 H 100 10/13/18 07:41 103 H 100 10/13/18 07:40 104 H 100 10/13/18 07:39 100 H 100 10/13/18 07:38 104 H 100 10/13/18 07:37 102 H 100 10/13/18 07:36 103 H 100 10/13/18 07:35 104 H 100 10/13/18 07:34 104 H 100 10/13/18 07:33 104 H 100 10/13/18 07:32 106 H 100 10/13/18 07:31 106 H 100 10/13/18 07:30 106 H 100 10/13/18 07:29 105 H 100 10/13/18 07:28 103 H 100 10/13/18 07:27 106 H 100 10/13/18 07:26 104 H 100 10/13/18 07:25 102 H 100 10/13/18 07:24 104 H 100 10/13/18 07:23 105 H 100 10/13/18 07:22 103 H 100 10/13/18 07:21 105 H 100 10/13/18 07:20 105 H 100 10/13/18 07:19 104 H 100 10/13/18 07:18 102 H 100 10/13/18 07:17 105 H 100 10/13/18 07:16 105 H 100 10/13/18 07:15 106 H 100 10/13/18 07:14 107 H 100 10/13/18 07:13 104 H 100 10/13/18 07:12 105 H 100 10/13/18 07:11 106 H 100 10/13/18 07:10 108 H 100 10/13/18 07:09 106 H 100 10/13/18 07:08 106 H 100 10/13/18 07:07 107 H 100 10/13/18 07:06 106 H 100 10/13/18 07:05 105 H 100 10/13/18 07:04 106 H 100 10/13/18 07:03 106 H 100 10/13/18 07:02 106 H 100 10/13/18 07:01 107 H 100 10/13/18 07:00 135/85 10/13/18 06:59 107 H 100 10/13/18 06:58 108 H 100 10/13/18 06:00 106 H Intake and Output (Last 8hrs): Intake & Output 10/12/18 10/13/18 10/13/18 22:59 06:59 14:59 Intake Total 1000 120 Output Total 900 600 Balance 100 -480 Weight 185 lb Intake: IV 1000 120 Right Antecubital 1000 120 Output: Urine 900 600 Urethral (Arauz) 900 600 Other: # Bowel Movements 0 0 - Physical Exam Head: Positive for: Atraumatic, Normocephalic Pupils: Positive for: PERRL Extroacular Muscles: Positive for: EOMI Conjunctiva: Positive for: Normal Mouth: Positive for: Moist Mucous Membranes Neck: Positive for: Normal Range of Motion Respiratory/Chest: Positive for: Clear to Auscultation, Good Air Exchange. Negative for: Respiratory Distress, Accessory Muscle Use Cardiovascular: Positive for: Regular Rate and Rhythm, Normal S1, S2. Negative for: Murmurs Abdomen: Negative for: Tenderness, Distention, Peritoneal Signs Back: Positive for: Normal Inspection Upper Extremity: Positive for: Normal Inspection. Negative for: Cyanosis, Edema Lower Extremity: Positive for: Normal Inspection. Negative for: Edema Neurological: Positive for: CN II-XII Intact, Speech Normal. Negative for: GCS=15 (GCS= 14) Skin: Positive for: Dry, Normal Color. Negative for: Rashes Psychiatric: Positive for: Alert, Oriented x 3, Normal Insight, Normal Concentration - Medications Active Medications: Active Medications Generic Name Dose Route Start Last Admin Trade Name Freq PRN Reason Stop Dose Admin Fentanyl Citrate 1,000 mcg in 100 mls @ 2 mls/hr 10/12/18 06:27 10/13/18 04:25 Fentanyl Citrate/Sodium Chloride 1 Mg/100 Ml IV Infused .Q24H PRN Titration TITRATE PER MD ORDER Protocol 20 MCG/HR Meropenem 1 gm in 50 mls @ 12.5 mls/hr 10/12/18 12:54 10/12/18 21:34 Merrem Iv 1 Gm Premix IVPB 10/21/18 12:55 12.5 mls/hr Q12 TOMMIE Administration Protocol Linezolid 600 mg in 300 mls @ 200 mls/hr 10/12/18 12:54 10/12/18 15:10 Zyvox 600mg/300ml D5w IVPB 10/21/18 12:55 200 mls/hr Q12 TOMMIE Administration Protocol Sodium Chloride 1,000 mls @ 75 mls/hr 10/13/18 09:45 Sodium Chloride 0.45% IV .[id number] TOMMIE Insulin Human Lispro 0 units 10/12/18 16:30 10/13/18 08:55 Humalog Med SC Not Given ACHS TOMMIE Protocol Methylprednisolone 40 mg 10/13/18 09:45 Solu-Medrol IVP Q12H TOMMIE Pantoprazole Sodium 40 mg 10/12/18 12:15 10/12/18 15:11 Protonix Inj IVP 40 mg DAILY TOMMIE Administration - Patient Studies Lab Studies: Microbiology Studies 10/12/18 06:15 Blood Culture - Preliminary Blood NO GROWTH AFTER 24 HOURS 10/12/18 05:50 Blood Culture - Preliminary Blood NO GROWTH AFTER 24 HOURS 10/12/18 11:00 Gram Stain - Final Sputum Induced Lab Studies 10/13/18 10/13/18 10/13/18 Range/Units 06:20 06:20 04:39 WBC 12.3 H D (4.5-11.0) 10^3/uL RBC 3.68 (3.5-6.1) 10^6/uL Hgb 9.9 L D (12.0-16.0) g/dL Hct 32.7 L (36.0-48.0) % MCV 88.9 (80.0-105.0) fl MCH 26.9 (25.0-35.0) pg MCHC 30.3 L (31.0-37.0) g/dl RDW 16.4 H (11.5-14.5) % Plt Count 249 (120.0-450.0) 10^3/uL MPV 9.6 (7.0-11.0) fl Gran % 87.2 H (50.0-68.0) % Lymph % (Auto) 6.8 L (22.0-35.0) % [place] % (Auto) 5.9 (1.0-6.0) % Eos % (Auto) 0.0 L (1.5-5.0) % Baso % (Auto) 0.1 (0.0-3.0) % Gran # 10.73 H (1.4-6.5) Lymph # (Auto) 0.8 L (1.2-3.4) [place] # (Auto) 0.7 H (0.1-0.6) Eos # (Auto) 0.0 (0.0-0.7) Baso # (Auto) 0.01 (0.0-2.0) K/mm3 pCO2 33 L (35-45) mm/Hg pO2 148.0 H (80-100) mm/Hg HCO3 14.1 L (21-28) mmol/L ABG pH 7.24 L (7.35-7.45) ABG Total CO2 15.1 L (22-28) mmol.L ABG O2 Saturation 99.4 H (95-98) % ABG O2 Content 10.2 L (15-23) ML/dl ABG Base Excess -12.2 L (-2.0-3.0) mmol/L ABG Hemoglobin 7.2 L (11.7-17.4) g/dL ABG Carboxyhemoglobin 1.5 (0.5-1.5) % POC ABG HHb (Measured) 0.6 (0-5) % ABG Methemoglobin 0.6 (0.0-3.0) % ABG O2 Capacity 10.3 L (16-24) mL/dl Hgb O2 Saturation 97.4 (95.0-98.0) % FiO2 100.0 % Sodium 144 (132-148) mmol/L Potassium 4.2 (3.6-5.0) mmol/L Chloride 110 H (98-107) mmol/L Carbon Dioxide 26 (21-33) mmol/L Anion Gap 12 (10-20) BUN 29 H (7-21) mg/dL Creatinine 1.5 H (0.7-1.2) mg/dl Est GFR ( Amer) 43 Est GFR (Non-Af Amer) 35 POC Glucose (mg/dL) (65-110) mg/dL Random Glucose 170 H (70-110) mg/dL Calcium 8.4 (8.4-10.5) mg/dL Phosphorus 4.2 (2.5-4.5) mg/dL Magnesium 2.0 (1.7-2.2) mg/dL Total Bilirubin 0.5 (0.2-1.3) mg/dL AST 44 H D (14-36) U/L ALT 25 (7-56) U/L Alkaline Phosphatase 138 H (38-126) U/L Total Protein 6.1 (5.8-8.3) g/dL Albumin 2.9 L (3.0-4.8) g/dL Globulin 3.2 gm/dL Albumin/Globulin Ratio 0.9 L (1.1-1.8) Procalcitonin (0.19-0.49) NG/ML Urine Opiates Screen (NEGATIVE) Urine Methadone Screen (NEGATIVE) Ur Barbiturates Screen (NEGATIVE) Ur Phencyclidine Scrn (NEGATIVE) Ur Amphetamines Screen (NEGATIVE) U Benzodiazepines Scrn (NEGATIVE) U Oth Cocaine Metabols (NEGATIVE) U Cannabinoids Screen (NEGATIVE) 10/12/18 10/12/18 10/12/18 Range/Units 21:33 17:40 11:46 WBC (4.5-11.0) 10^3/uL RBC (3.5-6.1) 10^6/uL Hgb (12.0-16.0) g/dL Hct (36.0-48.0) % MCV (80.0-105.0) fl MCH (25.0-35.0) pg MCHC (31.0-37.0) g/dl RDW (11.5-14.5) % Plt Count (120.0-450.0) 10^3/uL MPV (7.0-11.0) fl Gran % (50.0-68.0) % Lymph % (Auto) (22.0-35.0) % [place] % (Auto) (1.0-6.0) % Eos % (Auto) (1.5-5.0) % Baso % (Auto) (0.0-3.0) % Gran # (1.4-6.5) Lymph # (Auto) (1.2-3.4) [place] # (Auto) (0.1-0.6) Eos # (Auto) (0.0-0.7) Baso # (Auto) (0.0-2.0) K/mm3 pCO2 (35-45) mm/Hg pO2 (80-100) mm/Hg HCO3 (21-28) mmol/L ABG pH (7.35-7.45) ABG Total CO2 (22-28) mmol.L ABG O2 Saturation (95-98) % ABG O2 Content (15-23) ML/dl ABG Base Excess (-2.0-3.0) mmol/L ABG Hemoglobin (11.7-17.4) g/dL ABG Carboxyhemoglobin (0.5-1.5) % POC ABG HHb (Measured) (0-5) % ABG Methemoglobin (0.0-3.0) % ABG O2 Capacity (16-24) mL/dl Hgb O2 Saturation (95.0-98.0) % FiO2 % Sodium (132-148) mmol/L Potassium (3.6-5.0) mmol/L Chloride (98-107) mmol/L Carbon Dioxide (21-33) mmol/L Anion Gap (10-20) BUN (7-21) mg/dL Creatinine (0.7-1.2) mg/dl Est GFR ( Amer) Est GFR (Non-Af Amer) POC Glucose (mg/dL) 126 H 153 H (65-110) mg/dL Random Glucose (70-110) mg/dL Calcium (8.4-10.5) mg/dL Phosphorus (2.5-4.5) mg/dL Magnesium (1.7-2.2) mg/dL Total Bilirubin (0.2-1.3) mg/dL AST (14-36) U/L ALT (7-56) U/L Alkaline Phosphatase (38-126) U/L Total Protein (5.8-8.3) g/dL Albumin (3.0-4.8) g/dL Globulin gm/dL Albumin/Globulin Ratio (1.1-1.8) Procalcitonin (0.19-0.49) NG/ML Urine Opiates Screen Positive H (NEGATIVE) Urine Methadone Screen Negative (NEGATIVE) Ur Barbiturates Screen Negative (NEGATIVE) Ur Phencyclidine Scrn Negative (NEGATIVE) Ur Amphetamines Screen Negative (NEGATIVE) U Benzodiazepines Scrn Positive H (NEGATIVE) U Oth Cocaine Metabols Negative (NEGATIVE) U Cannabinoids Screen Negative (NEGATIVE) 10/12/18 Range/Units 07:22 WBC (4.5-11.0) 10^3/uL RBC (3.5-6.1) 10^6/uL Hgb (12.0-16.0) g/dL Hct (36.0-48.0) % MCV (80.0-105.0) fl MCH (25.0-35.0) pg MCHC (31.0-37.0) g/dl RDW (11.5-14.5) % Plt Count (120.0-450.0) 10^3/uL MPV (7.0-11.0) fl Gran % (50.0-68.0) % Lymph % (Auto) (22.0-35.0) % [place] % (Auto) (1.0-6.0) % Eos % (Auto) (1.5-5.0) % Baso % (Auto) (0.0-3.0) % Gran # (1.4-6.5) Lymph # (Auto) (1.2-3.4) [place] # (Auto) (0.1-0.6) Eos # (Auto) (0.0-0.7) Baso # (Auto) (0.0-2.0) K/mm3 pCO2 (35-45) mm/Hg pO2 (80-100) mm/Hg HCO3 (21-28) mmol/L ABG pH (7.35-7.45) ABG Total CO2 (22-28) mmol.L ABG O2 Saturation (95-98) % ABG O2 Content (15-23) ML/dl ABG Base Excess (-2.0-3.0) mmol/L ABG Hemoglobin (11.7-17.4) g/dL ABG Carboxyhemoglobin (0.5-1.5) % POC ABG HHb (Measured) (0-5) % ABG Methemoglobin (0.0-3.0) % ABG O2 Capacity (16-24) mL/dl Hgb O2 Saturation (95.0-98.0) % FiO2 % Sodium (132-148) mmol/L Potassium (3.6-5.0) mmol/L Chloride (98-107) mmol/L Carbon Dioxide (21-33) mmol/L Anion Gap (10-20) BUN (7-21) mg/dL Creatinine (0.7-1.2) mg/dl Est GFR ( Amer) Est GFR (Non-Af Amer) POC Glucose (mg/dL) (65-110) mg/dL Random Glucose (70-110) mg/dL Calcium (8.4-10.5) mg/dL Phosphorus (2.5-4.5) mg/dL Magnesium (1.7-2.2) mg/dL Total Bilirubin (0.2-1.3) mg/dL AST (14-36) U/L ALT (7-56) U/L Alkaline Phosphatase (38-126) U/L Total Protein (5.8-8.3) g/dL Albumin (3.0-4.8) g/dL Globulin gm/dL Albumin/Globulin Ratio (1.1-1.8) Procalcitonin 2.56 H (0.19-0.49) NG/ML Urine Opiates Screen (NEGATIVE) Urine Methadone Screen (NEGATIVE) Ur Barbiturates Screen (NEGATIVE) Ur Phencyclidine Scrn (NEGATIVE) Ur Amphetamines Screen (NEGATIVE) U Benzodiazepines Scrn (NEGATIVE) U Oth Cocaine Metabols (NEGATIVE) U Cannabinoids Screen (NEGATIVE) Laboratory Results - last 24 hr 10/12/18 10/12/18 10/12/18 07:22 11:46 17:40 WBC RBC Hgb Hct MCV MCH MCHC RDW Plt Count MPV Gran % Lymph % (Auto) [place] % (Auto) Eos % (Auto) Baso % (Auto) Gran # Lymph # (Auto) [place] # (Auto) Eos # (Auto) Baso # (Auto) pCO2 pO2 HCO3 ABG pH ABG Total CO2 ABG O2 Saturation ABG O2 Content ABG Base Excess ABG Hemoglobin ABG Carboxyhemoglobin POC ABG HHb (Measured) ABG Methemoglobin ABG O2 Capacity Hgb O2 Saturation FiO2 Sodium Potassium Chloride Carbon Dioxide Anion Gap BUN Creatinine Est GFR ( Amer) Est GFR (Non-Af Amer) POC Glucose (mg/dL) 153 H Random Glucose Calcium Phosphorus Magnesium Total Bilirubin AST ALT Alkaline Phosphatase Total Protein Albumin Globulin Albumin/Globulin Ratio Procalcitonin 2.56 H Urine Opiates Screen Positive H Urine Methadone Screen Negative Ur Barbiturates Screen Negative Ur Phencyclidine Scrn Negative Ur Amphetamines Screen Negative U Benzodiazepines Scrn Positive H U Oth Cocaine Metabols Negative U Cannabinoids Screen Negative 10/12/18 10/13/18 10/13/18 21:33 04:39 06:20 WBC 12.3 H D RBC 3.68 Hgb 9.9 L D Hct 32.7 L MCV 88.9 MCH 26.9 MCHC 30.3 L RDW 16.4 H Plt Count 249 MPV 9.6 Gran % 87.2 H Lymph % (Auto) 6.8 L [place] % (Auto) 5.9 Eos % (Auto) 0.0 L Baso % (Auto) 0.1 Gran # 10.73 H Lymph # (Auto) 0.8 L [place] # (Auto) 0.7 H Eos # (Auto) 0.0 Baso # (Auto) 0.01 pCO2 33 L pO2 148.0 H HCO3 14.1 L ABG pH 7.24 L ABG Total CO2 15.1 L ABG O2 Saturation 99.4 H ABG O2 Content 10.2 L ABG Base Excess -12.2 L ABG Hemoglobin 7.2 L ABG Carboxyhemoglobin 1.5 POC ABG HHb (Measured) 0.6 ABG Methemoglobin 0.6 ABG O2 Capacity 10.3 L Hgb O2 Saturation 97.4 FiO2 100.0 Sodium Potassium Chloride Carbon Dioxide Anion Gap BUN Creatinine Est GFR ( Amer) Est GFR (Non-Af Amer) POC Glucose (mg/dL) 126 H Random Glucose Calcium Phosphorus Magnesium Total Bilirubin AST ALT Alkaline Phosphatase Total Protein Albumin Globulin Albumin/Globulin Ratio Procalcitonin Urine Opiates Screen Urine Methadone Screen Ur Barbiturates Screen Ur Phencyclidine Scrn Ur Amphetamines Screen U Benzodiazepines Scrn U Oth Cocaine Metabols U Cannabinoids Screen 10/13/18 06:20 WBC RBC Hgb Hct MCV MCH MCHC RDW Plt Count MPV Gran % Lymph % (Auto) [place] % (Auto) Eos % (Auto) Baso % (Auto) Gran # Lymph # (Auto) [place] # (Auto) Eos # (Auto) Baso # (Auto) pCO2 pO2 HCO3 ABG pH ABG Total CO2 ABG O2 Saturation ABG O2 Content ABG Base Excess ABG Hemoglobin ABG Carboxyhemoglobin POC ABG HHb (Measured) ABG Methemoglobin ABG O2 Capacity Hgb O2 Saturation FiO2 Sodium 144 Potassium 4.2 Chloride 110 H Carbon Dioxide 26 Anion Gap 12 BUN 29 H Creatinine 1.5 H Est GFR ( Amer) 43 Est GFR (Non-Af Amer) 35 POC Glucose (mg/dL) Random Glucose 170 H Calcium 8.4 Phosphorus 4.2 Magnesium 2.0 Total Bilirubin 0.5 AST 44 H D ALT 25 Alkaline Phosphatase 138 H Total Protein 6.1 Albumin 2.9 L Globulin 3.2 Albumin/Globulin Ratio 0.9 L Procalcitonin Urine Opiates Screen Urine Methadone Screen Ur Barbiturates Screen Ur Phencyclidine Scrn Ur Amphetamines Screen U Benzodiazepines Scrn U Oth Cocaine Metabols U Cannabinoids Screen Radiology Impressions: Radiology Impressions Head CT 10/12/18 06:33 IMPRESSION: No acute intracranial findings Fingerstick Blood Sugar Results: 160 Critical Care Progress Note - Nutrition Nutrition: Nutrition Category Date Time Status Heart Healthy Diet [DIET] Diets 10/13/18 Breakfast Active <Lance Stroud - Last Filed: 10/13/18 12:07> CCU Objective - Vital Signs / Intake & Output Vital Signs (Last 4 hours): Vital Signs Temp Pulse Resp BP Pulse Ox 10/13/18 11:32 98.1 F 10/13/18 11:00 105 H 16 146/72 10/13/18 10:00 108 H 17 133/64 94 L 10/13/18 09:00 106 H 17 143/88 94 L 10/13/18 08:33 104 H 100 10/13/18 08:32 104 H 100 10/13/18 08:31 105 H 100 10/13/18 08:30 107 H 100 10/13/18 08:29 105 H 100 10/13/18 08:28 107 H 100 10/13/18 08:27 105 H 100 10/13/18 08:26 105 H 100 10/13/18 08:25 105 H 100 10/13/18 08:24 105 H 100 10/13/18 08:23 105 H 100 10/13/18 08:22 106 H 100 10/13/18 08:21 106 H 100 10/13/18 08:20 106 H 100 10/13/18 08:19 106 H 100 10/13/18 08:18 106 H 100 10/13/18 08:17 104 H 100 10/13/18 08:16 104 H 100 10/13/18 08:15 104 H 100 10/13/18 08:14 105 H 100 10/13/18 08:13 104 H 100 10/13/18 08:12 104 H 100 10/13/18 08:11 105 H 100 10/13/18 08:10 106 H 100 10/13/18 08:09 103 H 100 10/13/18 08:08 104 H 100 10/13/18 08:07 103 H 100 10/13/18 08:06 103 H 100 Intake and Output (Last 8hrs): Intake & Output 10/12/18 10/13/18 10/13/18 22:59 06:59 14:59 Intake Total 1000 120 Output Total 900 600 Balance 100 -480 Weight 185 lb Intake: IV 1000 120 Right Antecubital 1000 120 Output: Urine 900 600 Urethral (Arauz) 900 600 Other: # Bowel Movements 0 0 - Medications Active Medications: Active Medications Generic Name Dose Route Start Last Admin Trade Name Freq PRN Reason Stop Dose Admin Fentanyl Citrate 1,000 mcg in 100 mls @ 2 mls/hr 10/12/18 06:27 10/13/18 04:25 Fentanyl Citrate/Sodium Chloride 1 Mg/100 Ml IV Infused .Q24H PRN Titration TITRATE PER MD ORDER Protocol 20 MCG/HR Meropenem 1 gm in 50 mls @ 12.5 mls/hr 10/12/18 12:54 10/13/18 09:48 Merrem Iv 1 Gm Premix IVPB 10/21/18 12:55 12.5 mls/hr Q12 TOMMIE Administration Protocol Linezolid 600 mg in 300 mls @ 200 mls/hr 10/12/18 12:54 10/13/18 09:47 Zyvox 600mg/300ml D5w IVPB 10/21/18 12:55 200 mls/hr Q12 TOMMIE Administration Protocol Sodium Chloride 1,000 mls @ 75 mls/hr 10/13/18 09:45 10/13/18 09:51 Sodium Chloride 0.45% IV 75 mls/hr .[id number] TOMMIE Administration Insulin Human Lispro 0 units 10/12/18 16:30 10/13/18 08:55 Humalog Med SC Not Given ACHS TOMMIE Protocol Methylprednisolone 40 mg 10/13/18 09:45 10/13/18 09:51 Solu-Medrol IVP 40 mg Q12H TOMMIE Administration Oxycodone HCl 30 mg 10/13/18 10:48 Oxycodone Immediate Release Tab PO Q4H PRN Pain, severe (8-10) Pantoprazole Sodium 40 mg 10/12/18 12:15 10/13/18 09:49 Protonix Inj IVP 40 mg DAILY TOMMIE Administration - Patient Studies Lab Studies: Microbiology Studies 10/12/18 11:00 Gram Stain - Final Sputum Induced Sputum Culture - Preliminary Gram Negative Wilson 10/12/18 Unknown Urine Culture - Preliminary Urine,Clean Catch Gram Negative Wilson 10/12/18 06:15 Blood Culture - Preliminary Blood NO GROWTH AFTER 24 HOURS 10/12/18 05:50 Blood Culture - Preliminary Blood NO GROWTH AFTER 24 HOURS Lab Studies 10/13/18 10/13/18 10/13/18 Range/Units 06:20 06:20 04:39 WBC 12.3 H D (4.5-11.0) 10^3/uL RBC 3.68 (3.5-6.1) 10^6/uL Hgb 9.9 L D (12.0-16.0) g/dL Hct 32.7 L (36.0-48.0) % MCV 88.9 (80.0-105.0) fl MCH 26.9 (25.0-35.0) pg MCHC 30.3 L (31.0-37.0) g/dl RDW 16.4 H (11.5-14.5) % Plt Count 249 (120.0-450.0) 10^3/uL MPV 9.6 (7.0-11.0) fl Gran % 87.2 H (50.0-68.0) % Lymph % (Auto) 6.8 L (22.0-35.0) % [place] % (Auto) 5.9 (1.0-6.0) % Eos % (Auto) 0.0 L (1.5-5.0) % Baso % (Auto) 0.1 (0.0-3.0) % Gran # 10.73 H (1.4-6.5) Lymph # (Auto) 0.8 L (1.2-3.4) [place] # (Auto) 0.7 H (0.1-0.6) Eos # (Auto) 0.0 (0.0-0.7) Baso # (Auto) 0.01 (0.0-2.0) K/mm3 pCO2 33 L (35-45) mm/Hg pO2 148.0 H (80-100) mm/Hg HCO3 14.1 L (21-28) mmol/L ABG pH 7.24 L (7.35-7.45) ABG Total CO2 15.1 L (22-28) mmol.L ABG O2 Saturation 99.4 H (95-98) % ABG O2 Content 10.2 L (15-23) ML/dl ABG Base Excess -12.2 L (-2.0-3.0) mmol/L ABG Hemoglobin 7.2 L (11.7-17.4) g/dL ABG Carboxyhemoglobin 1.5 (0.5-1.5) % POC ABG HHb (Measured) 0.6 (0-5) % ABG Methemoglobin 0.6 (0.0-3.0) % ABG O2 Capacity 10.3 L (16-24) mL/dl Hgb O2 Saturation 97.4 (95.0-98.0) % FiO2 100.0 % Sodium 144 (132-148) mmol/L Potassium 4.2 (3.6-5.0) mmol/L Chloride 110 H (98-107) mmol/L Carbon Dioxide 26 (21-33) mmol/L Anion Gap 12 (10-20) BUN 29 H (7-21) mg/dL Creatinine 1.5 H (0.7-1.2) mg/dl Est GFR ( Amer) 43 Est GFR (Non-Af Amer) 35 POC Glucose (mg/dL) (65-110) mg/dL Random Glucose 170 H (70-110) mg/dL Calcium 8.4 (8.4-10.5) mg/dL Phosphorus 4.2 (2.5-4.5) mg/dL Magnesium 2.0 (1.7-2.2) mg/dL Total Bilirubin 0.5 (0.2-1.3) mg/dL AST 44 H D (14-36) U/L ALT 25 (7-56) U/L Alkaline Phosphatase 138 H (38-126) U/L Total Protein 6.1 (5.8-8.3) g/dL Albumin 2.9 L (3.0-4.8) g/dL Globulin 3.2 gm/dL Albumin/Globulin Ratio 0.9 L (1.1-1.8) Procalcitonin (0.19-0.49) NG/ML Urine Opiates Screen (NEGATIVE) Urine Methadone Screen (NEGATIVE) Ur Barbiturates Screen (NEGATIVE) Ur Phencyclidine Scrn (NEGATIVE) Ur Amphetamines Screen (NEGATIVE) U Benzodiazepines Scrn (NEGATIVE) U Oth Cocaine Metabols (NEGATIVE) U Cannabinoids Screen (NEGATIVE) 10/12/18 10/12/18 10/12/18 Range/Units 21:33 17:40 11:46 WBC (4.5-11.0) 10^3/uL RBC (3.5-6.1) 10^6/uL Hgb (12.0-16.0) g/dL Hct (36.0-48.0) % MCV (80.0-105.0) fl MCH (25.0-35.0) pg MCHC (31.0-37.0) g/dl RDW (11.5-14.5) % Plt Count (120.0-450.0) 10^3/uL MPV (7.0-11.0) fl Gran % (50.0-68.0) % Lymph % (Auto) (22.0-35.0) % [place] % (Auto) (1.0-6.0) % Eos % (Auto) (1.5-5.0) % Baso % (Auto) (0.0-3.0) % Gran # (1.4-6.5) Lymph # (Auto) (1.2-3.4) [place] # (Auto) (0.1-0.6) Eos # (Auto) (0.0-0.7) Baso # (Auto) (0.0-2.0) K/mm3 pCO2 (35-45) mm/Hg pO2 (80-100) mm/Hg HCO3 (21-28) mmol/L ABG pH (7.35-7.45) ABG Total CO2 (22-28) mmol.L ABG O2 Saturation (95-98) % ABG O2 Content (15-23) ML/dl ABG Base Excess (-2.0-3.0) mmol/L ABG Hemoglobin (11.7-17.4) g/dL ABG Carboxyhemoglobin (0.5-1.5) % POC ABG HHb (Measured) (0-5) % ABG Methemoglobin (0.0-3.0) % ABG O2 Capacity (16-24) mL/dl Hgb O2 Saturation (95.0-98.0) % FiO2 % Sodium (132-148) mmol/L Potassium (3.6-5.0) mmol/L Chloride (98-107) mmol/L Carbon Dioxide (21-33) mmol/L Anion Gap (10-20) BUN (7-21) mg/dL Creatinine (0.7-1.2) mg/dl Est GFR ( Amer) Est GFR (Non-Af Amer) POC Glucose (mg/dL) 126 H 153 H (65-110) mg/dL Random Glucose (70-110) mg/dL Calcium (8.4-10.5) mg/dL Phosphorus (2.5-4.5) mg/dL Magnesium (1.7-2.2) mg/dL Total Bilirubin (0.2-1.3) mg/dL AST (14-36) U/L ALT (7-56) U/L Alkaline Phosphatase (38-126) U/L Total Protein (5.8-8.3) g/dL Albumin (3.0-4.8) g/dL Globulin gm/dL Albumin/Globulin Ratio (1.1-1.8) Procalcitonin (0.19-0.49) NG/ML Urine Opiates Screen Positive H (NEGATIVE) Urine Methadone Screen Negative (NEGATIVE) Ur Barbiturates Screen Negative (NEGATIVE) Ur Phencyclidine Scrn Negative (NEGATIVE) Ur Amphetamines Screen Negative (NEGATIVE) U Benzodiazepines Scrn Positive H (NEGATIVE) U Oth Cocaine Metabols Negative (NEGATIVE) U Cannabinoids Screen Negative (NEGATIVE) 10/12/18 Range/Units 07:22 WBC (4.5-11.0) 10^3/uL RBC (3.5-6.1) 10^6/uL Hgb (12.0-16.0) g/dL Hct (36.0-48.0) % MCV (80.0-105.0) fl MCH (25.0-35.0) pg MCHC (31.0-37.0) g/dl RDW (11.5-14.5) % Plt Count (120.0-450.0) 10^3/uL MPV (7.0-11.0) fl Gran % (50.0-68.0) % Lymph % (Auto) (22.0-35.0) % [place] % (Auto) (1.0-6.0) % Eos % (Auto) (1.5-5.0) % Baso % (Auto) (0.0-3.0) % Gran # (1.4-6.5) Lymph # (Auto) (1.2-3.4) [place] # (Auto) (0.1-0.6) Eos # (Auto) (0.0-0.7) Baso # (Auto) (0.0-2.0) K/mm3 pCO2 (35-45) mm/Hg pO2 (80-100) mm/Hg HCO3 (21-28) mmol/L ABG pH (7.35-7.45) ABG Total CO2 (22-28) mmol.L ABG O2 Saturation (95-98) % ABG O2 Content (15-23) ML/dl ABG Base Excess (-2.0-3.0) mmol/L ABG Hemoglobin (11.7-17.4) g/dL ABG Carboxyhemoglobin (0.5-1.5) % POC ABG HHb (Measured) (0-5) % ABG Methemoglobin (0.0-3.0) % ABG O2 Capacity (16-24) mL/dl Hgb O2 Saturation (95.0-98.0) % FiO2 % Sodium (132-148) mmol/L Potassium (3.6-5.0) mmol/L Chloride (98-107) mmol/L Carbon Dioxide (21-33) mmol/L Anion Gap (10-20) BUN (7-21) mg/dL Creatinine (0.7-1.2) mg/dl Est GFR ( Amer) Est GFR (Non-Af Amer) POC Glucose (mg/dL) (65-110) mg/dL Random Glucose (70-110) mg/dL Calcium (8.4-10.5) mg/dL Phosphorus (2.5-4.5) mg/dL Magnesium (1.7-2.2) mg/dL Total Bilirubin (0.2-1.3) mg/dL AST (14-36) U/L ALT (7-56) U/L Alkaline Phosphatase (38-126) U/L Total Protein (5.8-8.3) g/dL Albumin (3.0-4.8) g/dL Globulin gm/dL Albumin/Globulin Ratio (1.1-1.8) Procalcitonin 2.56 H (0.19-0.49) NG/ML Urine Opiates Screen (NEGATIVE) Urine Methadone Screen (NEGATIVE) Ur Barbiturates Screen (NEGATIVE) Ur Phencyclidine Scrn (NEGATIVE) Ur Amphetamines Screen (NEGATIVE) U Benzodiazepines Scrn (NEGATIVE) U Oth Cocaine Metabols (NEGATIVE) U Cannabinoids Screen (NEGATIVE) Laboratory Results - last 24 hr 10/12/18 10/12/18 10/12/18 07:22 11:46 17:40 WBC RBC Hgb Hct MCV MCH MCHC RDW Plt Count MPV Gran % Lymph % (Auto) [place] % (Auto) Eos % (Auto) Baso % (Auto) Gran # Lymph # (Auto) [place] # (Auto) Eos # (Auto) Baso # (Auto) pCO2 pO2 HCO3 ABG pH ABG Total CO2 ABG O2 Saturation ABG O2 Content ABG Base Excess ABG Hemoglobin ABG Carboxyhemoglobin POC ABG HHb (Measured) ABG Methemoglobin ABG O2 Capacity Hgb O2 Saturation FiO2 Sodium Potassium Chloride Carbon Dioxide Anion Gap BUN Creatinine Est GFR ( Amer) Est GFR (Non-Af Amer) POC Glucose (mg/dL) 153 H Random Glucose Calcium Phosphorus Magnesium Total Bilirubin AST ALT Alkaline Phosphatase Total Protein Albumin Globulin Albumin/Globulin Ratio Procalcitonin 2.56 H Urine Opiates Screen Positive H Urine Methadone Screen Negative Ur Barbiturates Screen Negative Ur Phencyclidine Scrn Negative Ur Amphetamines Screen Negative U Benzodiazepines Scrn Positive H U Oth Cocaine Metabols Negative U Cannabinoids Screen Negative 10/12/18 10/13/18 10/13/18 21:33 04:39 06:20 WBC 12.3 H D RBC 3.68 Hgb 9.9 L D Hct 32.7 L MCV 88.9 MCH 26.9 MCHC 30.3 L RDW 16.4 H Plt Count 249 MPV 9.6 Gran % 87.2 H Lymph % (Auto) 6.8 L [place] % (Auto) 5.9 Eos % (Auto) 0.0 L Baso % (Auto) 0.1 Gran # 10.73 H Lymph # (Auto) 0.8 L [place] # (Auto) 0.7 H Eos # (Auto) 0.0 Baso # (Auto) 0.01 pCO2 33 L pO2 148.0 H HCO3 14.1 L ABG pH 7.24 L ABG Total CO2 15.1 L ABG O2 Saturation 99.4 H ABG O2 Content 10.2 L ABG Base Excess -12.2 L ABG Hemoglobin 7.2 L ABG Carboxyhemoglobin 1.5 POC ABG HHb (Measured) 0.6 ABG Methemoglobin 0.6 ABG O2 Capacity 10.3 L Hgb O2 Saturation 97.4 FiO2 100.0 Sodium Potassium Chloride Carbon Dioxide Anion Gap BUN Creatinine Est GFR ( Amer) Est GFR (Non-Af Amer) POC Glucose (mg/dL) 126 H Random Glucose Calcium Phosphorus Magnesium Total Bilirubin AST ALT Alkaline Phosphatase Total Protein Albumin Globulin Albumin/Globulin Ratio Procalcitonin Urine Opiates Screen Urine Methadone Screen Ur Barbiturates Screen Ur Phencyclidine Scrn Ur Amphetamines Screen U Benzodiazepines Scrn U Oth Cocaine Metabols U Cannabinoids Screen 10/13/18 06:20 WBC RBC Hgb Hct MCV MCH MCHC RDW Plt Count MPV Gran % Lymph % (Auto) [place] % (Auto) Eos % (Auto) Baso % (Auto) Gran # Lymph # (Auto) [place] # (Auto) Eos # (Auto) Baso # (Auto) pCO2 pO2 HCO3 ABG pH ABG Total CO2 ABG O2 Saturation ABG O2 Content ABG Base Excess ABG Hemoglobin ABG Carboxyhemoglobin POC ABG HHb (Measured) ABG Methemoglobin ABG O2 Capacity Hgb O2 Saturation FiO2 Sodium 144 Potassium 4.2 Chloride 110 H Carbon Dioxide 26 Anion Gap 12 BUN 29 H Creatinine 1.5 H Est GFR ( Amer) 43 Est GFR (Non-Af Amer) 35 POC Glucose (mg/dL) Random Glucose 170 H Calcium 8.4 Phosphorus 4.2 Magnesium 2.0 Total Bilirubin 0.5 AST 44 H D ALT 25 Alkaline Phosphatase 138 H Total Protein 6.1 Albumin 2.9 L Globulin 3.2 Albumin/Globulin Ratio 0.9 L Procalcitonin Urine Opiates Screen Urine Methadone Screen Ur Barbiturates Screen Ur Phencyclidine Scrn Ur Amphetamines Screen U Benzodiazepines Scrn U Oth Cocaine Metabols U Cannabinoids Screen Critical Care Progress Note - Nutrition Nutrition: Nutrition Category Date Time Status Heart Healthy Diet [DIET] Diets 10/13/18 Breakfast Active Assessment/Plan - Assessment and Plan (Free Text) Assessment: Patient seen and examined on rounds, with resident, agree with note with following additions/exceptions: Patient is 63yo female with PMHx of obesity, DM, htn, opioid abuse, chronic back pain who was admitted for altered mental status suspicious of opioid drug overdose. Patient was unable to protect airway in the ER, copious amount of thick secretions, subsequently intubated. Overnight patient self extubated herself, palced on 4LNC, sat 97% Currently afebrile, BP stable, comfortabl, in NAD, doing well CXR with RLL infiltrate Obesity DM HTN Chronic Opioid abuse rule out CVA Hypercapnic resp failure Recommend: - cont with supp O2, goal sat 90% - follow up cultures - Chris Tee - BP control - FS control - monitor LFTs - speech swallow eval - GI ppx - DVT ppx - stable, transfer to med surg
[2018-10-13] MEDS ORDERED: Sodium Chloride 0.45% 1,000 ML IV SCH (09:45)
[2018-10-13] MEDS: Linezolid 600 mg in D5W 300 ml 600 MG/300 ML BAG IVPB SCH ×2 (09:47→21:24)
[2018-10-13] MEDS: Meropenem IV 1 gm in NS 1 GM/50 ML BAG IVPB SCH ×2 (09:48→21:23)
[2018-10-13] MEDS ORDERED: oxyCODONE 30 mg Immediate Release Tab PO PRN (10:48)
--- NOTE | 2018-10-13 13:21 | PN ---
DATE: 10/13/2018 SUBJECTIVE: The patient is seen this morning in the ICU 128, bed 2. She is extubated and she is awake and alert. Remarkable recovery. PHYSICAL EXAMINATION: VITAL SIGNS: Temperature is down to 98, T-max yesterday was 100.7, blood pressure is 140/70, respiratory rate is 17, heart rate of 108. HEENT: Unremarkable. NECK: Supple. LUNGS: Have decreased breath sounds. HEART: Normal S1, S2. ABDOMEN: Soft, nontender. LABORATORY EXAMINATION: Reveals a white count and of 12,300, hemoglobin of 9, platelets of 249. BUN of 29, creatinine of 1.5, procalcitonin 2.56 and microbiology reveals the sputum has a Gram-negative den moderate growth and the urine has a Gram-negative den. Chemistries; the patient's procalcitonin is 2.56 and the urinalysis reveals 2-5 WBCs. Radiology reveals the patient's chest x-ray have a right lower lobe infiltrate, on Zosyn and Zyvox. 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 Now this morning, the patient is extubated and awake. questions appropriately. She was admitted with severe sepsis with Gram-negative den, right lower lobe infiltrates with acute kidney injury. Now extubated, on Zyvox and meropenem. Waiting for identification sensitivity, Gram-negative den and check and the methicillin-resistant Staphylococcus aureus screen from . We will make further recommendations. Of note, that this patient, this past year has lost her son. She may benefit from psychiatric care consultation. We will follow with you. Concerned about depression. Doug Pollard MD
--- NOTE | 2018-10-13 18:23 | PN ---
DATE: 10/13/2018 SUBJECTIVE: The patient is a 63-year-old, seen and examined, awake, alert, oriented and communicative. She states she was extubated successfully, doing well. Still has cough and congestion. She states she does not know she took her usual pain medication and Xanax. Since she knew that she is , but after that she does not remember, when she woke up she has was in the hospital. She feels fine. Complain of breast pain. PHYSICAL EXAMINATION VITAL SIGNS: She is afebrile, pulse 107, respirations 20, and blood pressure 117/75. LUNGS: Bilateral few expiratory rhonchi. HEART: S1, S2 audible. ABDOMEN: Soft, nontender. No rebound. No guarding. NEUROLOGICAL: The patient is awake, alert, and oriented. Able to communicate. LABORATORY EXAM: WBC is 12.3, hemoglobin 9.9, hematocrit 32.7, and platelet 249. Chemistry: Sodium 144, potassium 4.2, chloride 110, CO2 of 26, BUN 29, creatinine 1.5. Blood sugar of 170. Urine positive for opiates and benzodiazepines. Urine culture positive for gram-negative rods. Sputum positive for gram-negative rods. PLAN: We will encourage p.o. intake. Discontinue IV fluids. Continue nebulizer treatment. Currently, she is on meropenem, oxycodone, and Protonix. Continue on IV steroid. We will follow up this patient in a.m. Teri Le MD
[2018-10-14] MEDS: Pantoprazole 40 mg EC Tab PO SCH (06:17)
[2018-10-14 06:33] LABS: BASO # 0.02 K/mm3 (0.0-2.0); BASO % 0.1 % (0.0-3.0); GRAN # 15.46 (1.4-6.5); GRAN % 87.7 % (50.0-68.0); HEMOGLOBIN 10.8 g/dL (12.0-16.0); LYMPH # 1.4 (1.2-3.4); MEAN CELL VOLUME 86.3 fl (80.0-105.0); MEAN CORPUSCULAR HEMOGLOBIN 26.9 pg (25.0-35.0); MEAN CORPUSCULAR HGB CONC 31.2 g/dl (31.0-37.0); MEAN PLATELET VOLUME 9.1 fl (7.0-11.0); MONO # 0.7 (0.1-0.6); MONO % 4.2 % (1.0-6.0); RBC 4.01 10^6/uL (3.5-6.1); RED CELL DISTRIBUTION WIDTH 16.1 % (11.5-14.5); WHITE BLOOD COUNT 17.6 10^3/uL (4.5-11.0)
[2018-10-14 06:49] LABS: ALB/GLOB RATIO 0.9 (1.1-1.8); ALBUMIN 3.1 g/dL (3.0-4.8); CALCIUM 8.6 mg/dL (8.4-10.5)
[2018-10-14] MEDS: Insulin Lispro (humaLOG) MEDIUM Coverage SC SCH ×5 (07:51→21:53)
[2018-10-14] MEDS: Linezolid 600 mg in D5W 300 ml 600 MG/300 ML BAG IVPB SCH ×2 (10:05→23:35)
[2018-10-14] MEDS: Meropenem IV 1 gm in NS 1 GM/50 ML BAG IVPB SCH ×2 (10:05→21:55)
[2018-10-14] MEDS: MethylPREDNISolone 40 mg Vial IVP SCH ×2 (10:05→21:55)
[2018-10-14] MEDS ORDERED: Albuterol-Ipratrop 3 mg / 0.5 (3 ml) UD IH PRN (11:57)
--- NOTE | 2018-10-14 13:25 | CP.PCM.PN ---
Subjective - Date & Time of Evaluation Date of Evaluation: 10/14/18 Time of Evaluation: 09:35 - Subjective Subjective: Comfortably resting in bed, no fevers, not in distress. Objective - Vital Signs/Intake and Output Vital Signs (last 24 hours): Temp Pulse Resp BP Pulse Ox 98.2 F 106 H 20 136/85 94 L 10/13/18 22:00 10/13/18 22:00 10/13/18 22:00 10/13/18 22:00 10/13/18 22:00 Intake and Output: 10/13/18 10/14/18 18:59 06:59 Intake Total 800 120 Output Total 45 Balance 755 120 - Medications Medications: Current Medications Glipizide (Glucotrol) 5 mg PO BID [facility] Last Admin: 10/13/18 17:44 Dose: 5 mg Meropenem (Merrem Iv 1 Gm Premix) 1 gm in 50 mls @ 12.5 mls/hr IVPB Q12 [facility]; Protocol Stop: 10/21/18 12:55 Last Admin: 10/13/18 21:23 Dose: 12.5 mls/hr Linezolid (Zyvox 600mg/300ml D5w) 600 mg in 300 mls @ 200 mls/hr IVPB Q12 [facility]; Protocol Stop: 10/21/18 12:55 Last Admin: 10/13/18 21:24 Dose: 200 mls/hr Insulin Human Lispro (Humalog Med) 0 units SC ACHS [facility]; Protocol Last Admin: 10/13/18 22:00 Dose: Not Given Methylprednisolone (Solu-Medrol) 40 mg IVP Q12H [facility] Last Admin: 10/13/18 21:23 Dose: 40 mg Non-Formulary Medication (Sitagliptin Phos/Metformin Hcl [Janumet Xr 100-1,000 Mg Tablet]) 100 mg PO DAILY [facility] Oxycodone HCl (Oxycodone Immediate Release Tab) 30 mg PO Q4H PRN PRN Reason: Pain, severe (8-10) Pantoprazole Sodium (Protonix Ec Tab) 40 mg PO 0600 [facility] Last Admin: 10/14/18 06:17 Dose: 40 mg - Labs Labs: 10/14/18 06:00 10/14/18 06:00 - Constitutional Appears: Chronically Ill - Head Exam Head Exam: NORMAL INSPECTION - Respiratory Exam Respiratory Exam: Decreased Breath Sounds - Cardiovascular Exam Cardiovascular Exam: +S1, +S2 - GI/Abdominal Exam GI & Abdominal Exam: Soft. absent: Tenderness Assessment and Plan - Assessment and Plan (Free Text) Plan: Assessment SIRS, consider sepsis due to HCAP S/P VDRF S/P systemic inflammatory response syndrome with resolved leukocytosis with no evidence of sepsis, unlikely meningoencephalitis since there has been no fever, mental status rapidly improved and leukocytosis rapidly improved shallow ulceration of left hallux without evidence of active infection DM HTN chronic CHF CAD S/P PCI CVA S/P cholecystectomy GERD obesity with BMI 37 Plan continue Zyvox and Merrem day 3 pending final sputum cx results and MRSA nares screen will monitor clinically
[2018-10-14] MEDS: Albuterol-Ipratrop 3 mg / 0.5 (3 ml) UD IH SCH ×2 (13:55→21:17)
--- NOTE | 2018-10-14 18:04 | PN ---
DATE: 10/14/2018 SUBJECTIVE: The patient is a 63-year-old, seen and examined, complaining of decreased appetite, complaining of cough and congestion, has audible wheezing. PHYSICAL EXAMINATION VITAL SIGNS: She is afebrile. Pulse 91, respirations 18, blood pressure 146/93. LUNGS: Bilateral soft crackle and rhonchi in upper lung region. HEART: S1, S2 audible. ABDOMEN: Soft, nontender. No rebound. No guarding. NEUROLOGICAL: The patient is awake, alert, oriented, communicative. Moves all extremities. LABORATORY DATA: WBC 17.6, hemoglobin 10.8, hematocrit 34.6, platelets 258. Chemistry: Sodium 142, potassium 3.8, chloride 110, CO2 of 25, BUN 36, creatinine 1.2, blood sugar 127. ASSESSMENT: 1. Status post respiratory failure. 2. Multiple prescription drug overuse. 3. Chronic obstructive pulmonary disease exacerbation. 4. Active smoker. 5. [id number] diabetes. PLAN: We will continue the patient on meropenem, start her on nebulizer treatment, continue on IV steroids. Currently, she is on Zyvox and meropenem. We will request for physical therapy evaluation and TCU as needed. Teri Le MD
[2018-10-14] MEDS: oxyCODONE 30 mg Immediate Release Tab PO PRN (21:57)
[2018-10-15] MEDS: Albuterol-Ipratrop 3 mg / 0.5 (3 ml) UD IH SCH ×4 (01:45→20:50)
[2018-10-15] MEDS: oxyCODONE 30 mg Immediate Release Tab PO PRN ×2 (05:24→20:10)
[2018-10-15] MEDS: Pantoprazole 40 mg EC Tab PO SCH (05:25)
[2018-10-15 07:41] LABS: BASO # 0.03 K/mm3 (0.0-2.0); BASO % 0.3 % (0.0-3.0); GRAN # 10.12 (1.4-6.5); GRAN % 85.3 % (50.0-68.0); HEMOGLOBIN 9.7 g/dL (12.0-16.0); LYMPH # 1.3 (1.2-3.4); MEAN CELL VOLUME 85.4 fl (80.0-105.0); MEAN CORPUSCULAR HEMOGLOBIN 26.7 pg (25.0-35.0); MEAN CORPUSCULAR HGB CONC 31.3 g/dl (31.0-37.0); MEAN PLATELET VOLUME 8.8 fl (7.0-11.0); MONO # 0.4 (0.1-0.6); MONO % 3.4 % (1.0-6.0); RBC 3.63 10^6/uL (3.5-6.1); RED CELL DISTRIBUTION WIDTH 16.1 % (11.5-14.5); WHITE BLOOD COUNT 11.9 10^3/uL (4.5-11.0)
[2018-10-15 07:57] LABS: ALB/GLOB RATIO 0.9 (1.1-1.8); ALBUMIN 2.9 g/dL (3.0-4.8); CALCIUM 8.3 mg/dL (8.4-10.5)
[2018-10-15] MEDS: MethylPREDNISolone 40 mg Vial IVP SCH (09:35)
[2018-10-15] MEDS: Insulin Lispro (humaLOG) MEDIUM Coverage SC SCH ×3 (09:37→20:09)
[2018-10-15] MEDS: Meropenem IV 1 gm in NS 1 GM/50 ML BAG IVPB SCH ×2 (09:38→23:37)
[2018-10-15] MEDS: Linezolid 600 mg in D5W 300 ml 600 MG/300 ML BAG IVPB SCH (09:38)
--- NOTE | 2018-10-15 14:57 | CP.PCM.PN ---
Subjective - Date & Time of Evaluation Date of Evaluation: 10/15/18 Time of Evaluation: 10:10 - Subjective Subjective: Resting comfortably in bed, no fevers. Objective - Vital Signs/Intake and Output Vital Signs (last 24 hours): Temp Pulse Resp BP Pulse Ox 97.7 F 91 H 18 146/93 H 94 L 10/14/18 06:00 10/14/18 06:00 10/14/18 06:00 10/14/18 06:00 10/14/18 06:00 Intake and Output: 10/14/18 10/14/18 06:59 18:59 Intake Total 120 Balance 120 - Medications Medications: Current Medications Albuterol/Ipratropium (Duoneb 3 Mg/0.5 Mg (3 Ml) Ud) 3 ml IH Q2H PRN PRN Reason: Shortness of Breath Albuterol/Ipratropium (Duoneb 3 Mg/0.5 Mg (3 Ml) Ud) 3 ml IH [id number] [facility] Glipizide (Glucotrol) 5 mg PO BID [facility] Last Admin: 10/14/18 10:05 Dose: 5 mg Meropenem (Merrem Iv 1 Gm Premix) 1 gm in 50 mls @ 12.5 mls/hr IVPB Q12 [facility]; Protocol Stop: 10/21/18 12:55 Last Admin: 10/14/18 10:05 Dose: 12.5 mls/hr Linezolid (Zyvox 600mg/300ml D5w) 600 mg in 300 mls @ 200 mls/hr IVPB Q12 [facility]; Protocol Stop: 10/21/18 12:55 Last Admin: 10/14/18 10:05 Dose: 200 mls/hr Insulin Human Lispro (Humalog Med) 0 units SC ACHS [facility]; Protocol Last Admin: 10/14/18 11:53 Dose: 1 units Metformin HCl (Glucophage Xr) 1,000 mg PO DAILY [facility] Last Admin: 10/14/18 11:53 Dose: 1,000 mg Methylprednisolone (Solu-Medrol) 40 mg IVP Q12H [facility] Last Admin: 10/14/18 10:05 Dose: 40 mg Oxycodone HCl (Oxycodone Immediate Release Tab) 30 mg PO Q6H PRN PRN Reason: Pain, severe (8-10) Pantoprazole Sodium (Protonix Ec Tab) 40 mg PO 0600 [facility] Last Admin: 10/14/18 06:17 Dose: 40 mg Sitagliptin Phosphate (Januvia) 100 mg PO DAILY [facility] Last Admin: 10/14/18 11:53 Dose: 100 mg - Labs Labs: 10/14/18 06:00 10/14/18 06:00 - Constitutional Appears: Chronically Ill - Head Exam Head Exam: NORMAL INSPECTION - Respiratory Exam Respiratory Exam: Decreased Breath Sounds - Cardiovascular Exam Cardiovascular Exam: +S1, +S2 - GI/Abdominal Exam GI & Abdominal Exam: Soft. absent: Tenderness Assessment and Plan - Assessment and Plan (Free Text) Plan: Assessment SIRS, consider sepsis due to HCAP S/P VDRF S/P systemic inflammatory response syndrome with resolved leukocytosis with no evidence of sepsis, unlikely meningoencephalitis since there has been no fever, mental status rapidly improved and leukocytosis rapidly improved shallow ulceration of left hallux without evidence of active infection DM HTN chronic CHF CAD S/P PCI CVA S/P cholecystectomy GERD obesity with BMI 37 Plan continue Merrem day 4; can d/c Zyvox since MRSA nares screen is negative; sputum cx shows E. coli; complete 4-7 days of antibiotics will continue to monitor clinically
--- NOTE | 2018-10-15 15:13 | CP.PCM.APN ---
Subjective - Date & Time of Evaluation Date of Evaluation: 10/15/18 Time of Evaluation: 12:30 - Subjective Subjective: Pt. seen and examined at bedside. States feels much better, cough is better, denied shortness of breath, asking when can she go home, denied fever, denied chills Review of Systems - Constitutional Constitutional: As Per HPI - EENT Eyes: As Per HPI Ears: As Per HPI Nose/Mouth/Throat: As Per HPI - Breasts Breasts: As Per HPI - Cardiovascular Cardiovascular: As Per HPI - Respiratory Respiratory: As Per HPI - Gastrointestinal Gastrointestinal: As Per HPI - Genitourinary Genitourinary: As Per HPI - Reproductive: Female Reproductive:Female: As Per HPI - Menstruation Menstruation: As Per HPI - Musculoskeletal Musculoskeletal: As Per HPI - Integumentary Integumentary: As Per HPI - Neurological Neurological: As Per HPI - Psychiatric Psychiatric: As Per HPI - Hematologic/Lymphatic Hematologic: As Per HPI Objective - Vital Signs/Intake and Output Vital Signs (last 24 hours): Temp Pulse Resp BP Pulse Ox 99.0 F 91 H 18 166/85 H 94 L 10/15/18 14:00 10/15/18 14:00 10/15/18 14:00 10/15/18 14:00 10/15/18 14:00 - Medications Medications: Current Medications Albuterol/Ipratropium (Duoneb 3 Mg/0.5 Mg (3 Ml) Ud) 3 ml IH Q2H PRN PRN Reason: Shortness of Breath Albuterol/Ipratropium (Duoneb 3 Mg/0.5 Mg (3 Ml) Ud) 3 ml IH [id number] [facility] Last Admin: 10/15/18 14:02 Dose: Not Given Glipizide (Glucotrol) 5 mg PO BID [facility] Last Admin: 10/15/18 09:36 Dose: 5 mg Meropenem (Merrem Iv 1 Gm Premix) 1 gm in 50 mls @ 12.5 mls/hr IVPB Q12 [facility]; Protocol Stop: 10/21/18 12:55 Last Admin: 10/15/18 09:38 Dose: 12.5 mls/hr Potassium Chloride (Potassium Chloride 10 Meq/100 Ml) 10 meq in 100 mls @ 50 mls/hr IVPB Q2H [facility] Stop: 10/15/18 16:59 Last Admin: 10/15/18 14:48 Dose: 50 mls/hr Insulin Human Lispro (Humalog Med) 0 units SC ACHS [facility]; Protocol Last Admin: 10/15/18 14:44 Dose: Not Given Metformin HCl (Glucophage Xr) 1,000 mg PO DAILY [facility] Last Admin: 10/15/18 09:35 Dose: 1,000 mg Methylprednisolone (Solu-Medrol) 40 mg IVP Q12H [facility] Last Admin: 10/15/18 09:35 Dose: 40 mg Oxycodone HCl (Oxycodone Immediate Release Tab) 30 mg PO Q6H PRN PRN Reason: Pain, severe (8-10) Last Admin: 10/15/18 05:24 Dose: 30 mg Pantoprazole Sodium (Protonix Ec Tab) 40 mg PO 0600 [facility] Last Admin: 10/15/18 05:25 Dose: 40 mg Sitagliptin Phosphate (Januvia) 100 mg PO DAILY [facility] Last Admin: 10/15/18 09:36 Dose: 100 mg - Labs Labs: 10/15/18 07:15 10/15/18 07:15 - Head Exam Head Exam: NORMAL INSPECTION, NORMOCEPHALIC - Eye Exam Eye Exam: Normal appearance Pupil Exam: NORMAL ACCOMODATION - Neck Exam Neck Exam: Full ROM - Respiratory Exam Respiratory Exam: Clear to Ausculation Bilateral, NORMAL BREATHING PATTERN - Cardiovascular Exam Cardiovascular Exam: REGULAR RHYTHM, +S1, +S2 - GI/Abdominal Exam GI & Abdominal Exam: Soft, Normal Bowel Sounds - Rectal Exam Rectal Exam: Deferred - Back Exam Back Exam: Full ROM, NORMAL INSPECTION - Neurological Exam Neurological Exam: Alert, Awake, Oriented x3 - Skin Skin Exam: Dry, Intact, Normal Color, Warm Assessment and Plan - Assessment and Plan (Free Text) Assessment: A 63 year old female, whose past medical history includes Obesity, DM, HTN, opiod abuse, chronic back pain, is brought into the emergency department via EMS for further evaluation. As per EMS, patent's family called because patient was not responding appropriately, was found unresponsive at home, admitted to intensive care unit for respiratory failure, sepsis, currently undergoing workup, Radiology Results Chest X-Ray 10/12/18 06:04 IMPRESSION: Right lower lobe infiltrate Head CT 10/12/18 06:33 IMPRESSION: No acute intracranial findings Microbiology 10/12/18 06:15 Blood Blood Culture - Preliminary NO GROWTH AFTER 3 DAYS 10/12/18 05:50 Blood Blood Culture - Preliminary NO GROWTH AFTER 3 DAYS Microbiology 10/12/18 06:15 Blood Culture - Preliminary Blood NO GROWTH AFTER 3 DAYS 10/12/18 05:50 Blood Culture - Preliminary Blood NO GROWTH AFTER 3 DAYS 1. Severe Sepsis likely to Right Lower lobe pneumonia, Leukocytosis improving. continue IV antibiotics as per ID, on Day 4 of 9. Sputum culture positive for E.Coli. 2. RLL pneumonia- Continue IV antibiotics per. ID. blood cultures so far negative, 3. UTI with E.Coli organism, continue IV antibiotics per I.D. 4. Resp failure, lilkely to sepsis, and drug use. now extubated, continue IV steroids, Pt. eval , recs pending. Awaiting PT eval for disposition plan. SW/CM for Discharge planning Will continue to monitor clinical status and follow closely.
--- NOTE | 2018-10-15 15:26 | PN ---
DATE: 10/15/2018 SUBJECTIVE: The patient is a 63-year-old, seen and examined, lying in bed, complaining of feeling very fatigued, complaining of loss of appetite. physical therapy yesterday. PHYSICAL EXAMINATION VITAL SIGNS: She is afebrile, pulse 92, respirations 18 and blood pressure 173/84. LUNGS: Bilateral fair airflow. Few occasional expiratory rhonchi. HEART: S1 and S2, audible. ABDOMEN: Soft, obese, and nontender. No rebound. No guarding. NEUROLOGICAL: The patient is awake, alert, oriented and communicative. EXTREMITIES: Moves all extremity. LABORATORY DATA: WBC is 11.9, hemoglobin 9.7, hematocrit 31 and platelets 255. Chemistry: Sodium 141, potassium 3.2, chloride 108, CO2 of 26, BUN 35, creatinine 1.3 and blood sugar of 164. Her urine positive for E. coli. ASSESSMENT: 1. Status post altered mental status. 2. Status post respiratory failure. 3. Chronic obstructive pulmonary disease exacerbation. 4. [id number] diabetes. 5. Escherichia coli urinary tract infection. 6. Chronic degenerative disc disease. PLAN: We will continue the patient on Zyvox. The patient is getting meropenem. Continue nebulizer treatment. Encourage ambulation and will replace her KCL. Teri Le MD
[2018-10-15 23:00] VITALS: PULSE 80
[2018-10-16] MEDS: Insulin Lispro (humaLOG) MEDIUM Coverage SC SCH ×2 (00:46→08:00)
[2018-10-16] MEDS: Meropenem IV 1 gm in NS 1 GM/50 ML BAG IVPB SCH ×2 (00:53→10:33)
[2018-10-16] MEDS: MethylPREDNISolone 40 mg Vial IVP SCH ×2 (00:54→10:33)
[2018-10-16] MEDS: Albuterol-Ipratrop 3 mg / 0.5 (3 ml) UD IH SCH ×3 (02:29→13:20)
[2018-10-16] MEDS: Pantoprazole 40 mg EC Tab PO SCH (06:35)
[2018-10-16] MEDS: oxyCODONE 30 mg Immediate Release Tab PO PRN (06:45)
[2018-10-16 07:02] LABS: BASO # 0.03 K/mm3 (0.0-2.0); BASO % 0.2 % (0.0-3.0); GRAN # 15.21 (1.4-6.5); GRAN % 87.9 % (50.0-68.0); HEMOGLOBIN 10.4 g/dL (12.0-16.0); LYMPH # 1.3 (1.2-3.4); LYMPH % 7.4 % (22.0-35.0); MEAN CELL VOLUME 85.6 fl (80.0-105.0); MEAN CORPUSCULAR HEMOGLOBIN 26.7 pg (25.0-35.0); MEAN CORPUSCULAR HGB CONC 31.1 g/dl (31.0-37.0); MEAN PLATELET VOLUME 8.6 fl (7.0-11.0); MONO # 0.8 (0.1-0.6); MONO % 4.5 % (1.0-6.0); RBC 3.9 10^6/uL (3.5-6.1); RED CELL DISTRIBUTION WIDTH 16.3 % (11.5-14.5); WHITE BLOOD COUNT 17.3 10^3/uL (4.5-11.0)
[2018-10-16 07:45] LABS: ALB/GLOB RATIO 0.9 (1.1-1.8); ALBUMIN 3.3 g/dL (3.0-4.8); ALT/SGPT 24 U/L (7-56); AST/SGOT 32 U/L (14-36); BLOOD UREA NITROGEN 32 mg/dL (7-21); CALCIUM 8.6 mg/dL (8.4-10.5); GFR NON-AFRICAN AMERICAN 50
[2018-10-16 08:05] VITALS: RESP 20; TEMP 98.3; O2SAT 97
[2018-10-16] MEDS ORDERED: Potassium Chloride 40 mEq/30 ml LIQ UD PO STA (10:04)
[2018-10-16 10:35] VITALS: BP 171/101
--- NOTE | 2018-10-16 13:22 | CP.PCM.PN ---
Subjective - Date & Time of Evaluation Date of Evaluation: 10/16/18 Time of Evaluation: 09:55 - Subjective Subjective: Comfortable, no fevers. Objective - Vital Signs/Intake and Output Vital Signs (last 24 hours): Temp Pulse Resp BP Pulse Ox 99.0 F 91 H 18 166/85 H 94 L 10/15/18 14:00 10/15/18 14:00 10/15/18 14:00 10/15/18 14:00 10/15/18 14:00 - Medications Medications: Current Medications Albuterol/Ipratropium (Duoneb 3 Mg/0.5 Mg (3 Ml) Ud) 3 ml IH Q2H PRN PRN Reason: Shortness of Breath Albuterol/Ipratropium (Duoneb 3 Mg/0.5 Mg (3 Ml) Ud) 3 ml IH [id number] [facility] Last Admin: 10/15/18 14:02 Dose: Not Given Glipizide (Glucotrol) 5 mg PO BID [facility] Last Admin: 10/15/18 09:36 Dose: 5 mg Meropenem (Merrem Iv 1 Gm Premix) 1 gm in 50 mls @ 12.5 mls/hr IVPB Q12 [facility]; Protocol Stop: 10/21/18 12:55 Last Admin: 10/15/18 09:38 Dose: 12.5 mls/hr Potassium Chloride (Potassium Chloride 10 Meq/100 Ml) 10 meq in 100 mls @ 50 mls/hr IVPB Q2H [facility] Stop: 10/15/18 16:59 Last Admin: 10/15/18 14:48 Dose: 50 mls/hr Insulin Human Lispro (Humalog Med) 0 units SC ACHS [facility]; Protocol Last Admin: 10/15/18 14:44 Dose: Not Given Metformin HCl (Glucophage Xr) 1,000 mg PO DAILY [facility] Last Admin: 10/15/18 09:35 Dose: 1,000 mg Methylprednisolone (Solu-Medrol) 40 mg IVP Q12H [facility] Last Admin: 10/15/18 09:35 Dose: 40 mg Oxycodone HCl (Oxycodone Immediate Release Tab) 30 mg PO Q6H PRN PRN Reason: Pain, severe (8-10) Last Admin: 10/15/18 05:24 Dose: 30 mg Pantoprazole Sodium (Protonix Ec Tab) 40 mg PO 0600 [facility] Last Admin: 10/15/18 05:25 Dose: 40 mg Sitagliptin Phosphate (Januvia) 100 mg PO DAILY [facility] Last Admin: 10/15/18 09:36 Dose: 100 mg - Labs Labs: 10/15/18 07:15 10/15/18 07:15 - Constitutional Appears: Chronically Ill - Head Exam Head Exam: NORMAL INSPECTION - Respiratory Exam Respiratory Exam: Decreased Breath Sounds - Cardiovascular Exam Cardiovascular Exam: +S1, +S2 - GI/Abdominal Exam GI & Abdominal Exam: Soft. absent: Tenderness Assessment and Plan - Assessment and Plan (Free Text) Plan: Assessment SIRS, consider sepsis due to HCAP S/P VDRF S/P systemic inflammatory response syndrome with resolved leukocytosis with no evidence of sepsis, unlikely meningoencephalitis since there has been no fever, mental status rapidly improved and leukocytosis rapidly improved shallow ulceration of left hallux without evidence of active infection DM HTN chronic CHF CAD S/P PCI CVA S/P cholecystectomy GERD obesity with BMI 37 Plan continue Merrem day 5; can d/c Zyvox since MRSA nares screen is negative; sputum cx shows E. coli; complete 4-7 days of antibiotics will continue to monitor clinically
--- NOTE | 2018-10-16 23:43 | DS ---
HISTORY OF PRESENT ILLNESS: The patient is a 63-year-old who was brought to emergency room because of altered mental status. She was intubated for airway protection. The patient does not admit that she overdosed. She states she did feel drowsy and dizzy. She was aware what was happening around, but by the time she regained consciousness, she was in the ER. She does suffer from chronic back pain and has been under the care of pain management. The patient was in the ICU for 2 days. She was successfully extubated. She was having cough and congestion. She was on IV antibiotics, nebulizer treatment, and steroids. On examination today, she is doing well. She is insisting to go home, because her is sick and she has to take care of him. PHYSICAL EXAMINATION: GENERAL: Today, she is awake, alert, oriented, communicative. VITAL SIGNS: She is afebrile, pulse 80, respirations 20, blood pressure 171/101. LUNGS: Bilateral fair airflow. No rhonchi or crackle. HEART: S1 and S2 audible. ABDOMEN: Soft, nontender. No rebound. No guarding. NEUROLOGICAL: The patient is awake, alert, oriented, communicative, ambulatory. EXTREMITIES: Bilateral legs, no edema. LABORATORY EXAM: WBC 17.3, hemoglobin 10.4, hematocrit 33.4, platelets 280. Chemistry: Sodium 139, potassium 3.3, chloride 104, CO2 of 29, BUN 32, creatinine 1.1, blood sugar 266. Urine drug screen: Positive for opiates and benzodiazepines. Her urine, positive for E. coli. ASSESSMENT: 1. Escherichia coli urinary tract infection. 2. Asthmatic bronchitis. 3. Status post altered mental status, probably secondary to narcotics and tranquilizer. 4. Chronic obstructive pulmonary disease. 5. Anxiety disorder. 6. Hypertension. PLAN: The patient was discharged today. She is being discharged on Levaquin to cover both for UTI and upper respiratory tract infection. She will resume her medications, Xanax 1 mg twice a day as needed, metformin 1000 daily. She was given 5-day supply of morphine, MS Contin, and oxycodone. She will follow up with her PMD. Teri Le MD
== END 2018-10-16 15:15 | disposition home or self-care (01) | DRG 917 ==
LOC: ED 05:43 → ERH 06:37 → ICU 08:47 → 5RSO 10-13 12:52
PROVIDERS: ADMIT Internal Medicine; ATTEND Internal Medicine
PROC: 5A1945Z Respiratory Ventilation, 24-96 Consecutive Hours (ICD-10-PCS; principal; 2018-10-12)
PROC: 0BH17EZ Insertion of Endotracheal Airway into Trachea, Via Natural or Artificial Opening (ICD-10-PCS; 2018-10-12)
PROC: 3E03328 Introduction of Oxazolidinones into Peripheral Vein, Percutaneous Approach (ICD-10-PCS; 2018-10-12)
PROC: 5A09457 Assistance with Respiratory Ventilation, 24-96 Consecutive Hours, Continuous Positive Airway Pressure (ICD-10-PCS; 2018-10-14)
DX: T40.601A Poisoning by unspecified narcotics, accidental (unintentional), initial encounter (principal); J96.92 Respiratory failure, unspecified with hypercapnia; J69.0 Pneumonitis due to inhalation of food and vomit; A41.50 Gram-negative sepsis, unspecified; R65.20 Severe sepsis without septic shock; F11.20 Opioid dependence, uncomplicated; N39.0 Urinary tract infection, site not specified; G93.40 Encephalopathy, unspecified; E87.2 Acidosis; N17.9 Acute kidney failure, unspecified; J44.1 Chronic obstructive pulmonary disease with (acute) exacerbation; Z99.11 Dependence on respirator [ventilator] status; E11.9 Type 2 diabetes mellitus without complications; Z79.84 Long term (current) use of oral hypoglycemic drugs; I10 Essential (primary) hypertension; G89.29 Other chronic pain; E66.9 Obesity, unspecified; M54.9 Dorsalgia, unspecified; T42.4X1A Poisoning by benzodiazepines, accidental (unintentional), initial encounter; F41.9 Anxiety disorder, unspecified; E05.00 Thyrotoxicosis with diffuse goiter without thyrotoxic crisis or storm; F17.200 Nicotine dependence, unspecified, uncomplicated; B96.20 Unspecified Escherichia coli [E. coli] as the cause of diseases classified elsewhere; D64.9 Anemia, unspecified; E11.621 Type 2 diabetes mellitus with foot ulcer; I11.0 Hypertensive heart disease with heart failure; I50.9 Heart failure, unspecified; I25.10 Atherosclerotic heart disease of native coronary artery without angina pectoris; L97.529 Non-pressure chronic ulcer of other part of left foot with unspecified severity; K21.9 Gastro-esophageal reflux disease without esophagitis; N64.4 Mastodynia; Z68.37 Body mass index [BMI] 37.0-37.9, adult; Z90.49 Acquired absence of other specified parts of digestive tract; Z98.61 Coronary angioplasty status; Z98.42 Cataract extraction status, left eye; Z98.41 Cataract extraction status, right eye; M19.90 Unspecified osteoarthritis, unspecified site